=== PATIENT | female | born 1980 | race African-American/Black ===

== ENCOUNTER 2017-06-04 07:34 | Inpatient (IN) | payer OTHER ==
[~2017-06-04] VITALS: Ht 165.1 cm; Wt 114.4 kg
[2017-06-04] VITALS (10 sets, daily range): BP systolic 131–140; BP diastolic 80–91; PULSE 97–110; RESP 20–24; TEMP 98–98.9; O2SAT 95–99
[~2017-06-04 07:34] MED LIST: DICL75TA PO; PERC5TAB12 PO; PRED20 PO; ROBA750T PO
[2017-06-04] MEDS ORDERED: SODIUM CHLORIDE 0.9% FLUSH 10 ML FLUSH IV FLUSH PRN (12:45)
[2017-06-04] MEDS ORDERED: NITROGLYCERIN 0.4 MG SL 25 TABS/BTL SL PRN (12:45)
[2017-06-04] MEDS ORDERED: HEPARIN SODIUM - SQ 10,000 UNITS/ML VIAL SQ SCH (12:45)
[2017-06-04] MEDS: CARVEDILOL 3.125 MG TAB PO SCH ×2 (12:45→19:57)
--- NOTE | 2017-06-04 12:56 | HHI.HP ---
[facility] No Primary Care Physician Admission Diagnosis Diagnoses: Chief Complaint: Shortness of breath and shoulder discomfort Travel History International Travel<30 Days: No Contact w/Intl Traveler <30 Da: No Traveled to Known Affected Are: No History of Present Illness This patient is a 37-year-old female with a history of hypertension which is untreated. She went to the emergency room complaining of left-sided shoulder vague discomfort rated 3 out of 10 and with elevated blood pressures at home. Patient says her blood pressure at home was 179/130. She has had high blood pressures before but never this high. She has a diagnosis of hypertension but is not on any medications. She also complained of nonradiating left-sided shoulder pain and associated shortness of breath with dyspnea on exertion. She had been dizzy and short of breath for the last month. 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 She has had no anginal-type complaints of pain or chest tightness, however over the last month to today The discomfort has become worse. Patient also has menorrhagia although she is not currently on her menstrual cycle. She went to the emergency room and melatonin was found to have elevated cardiac enzymes, and abnormal CT chest as well as anemia. Patient was transferred to this facility for further evaluation and treatment. At this time the patient is pain free Review of Systems Constitutional: COMPLAINS OF: Fatigue, DENIES: Diaphoretic episodes, Fever, Weight gain, Weight loss, Chills, Dizziness, Change in appetite, Night Sweats Endocrine: DENIES: Abnorml menstrual pattern, Heat/cold intolerance, Polydipsia , Polyuria, Polyphagia Eyes: DENIES: Blurred vision, Diplopia, Eye inflammation, Eye pain, Vision loss , Photosensitivity, Double Vision Ears, nose, mouth, throat: DENIES: Tinnitus, Hearing loss, Vertigo, Nasal discharge, Oral lesions, Throat pain, Hoarseness, Ear Pain, Running Nose, Epistaxis, Sinus Pain, Toothache, Odynophagia Respiratory: COMPLAINS OF: Shortness of breath, DENIES: Apneas, Cough, Snoring , Wheezing, Hemoptysis, Sputum production Cardiovascular: COMPLAINS OF: Chest pain, Palpitations, Dyspnea on Exertion, Lower Extremity Edema, DENIES: Syncope, PND, Orthopnea, Claudication Gastrointestinal: DENIES: Abdominal pain, Black stools, Bloody stools, Constipation, Diarrhea, Nausea, Vomiting, Difficulty Swallowing, Anorexia Genitourinary: DENIES: Abnormal vaginal bleeding, Dysmenorrhea, Dyspareunia, Sexual dysfunction, Urinary frequency, Urinary incontinence, Urgency, Hematuria , Dysuria, Nocturia, Vaginal discharge Musculoskeletal: DENIES: Joint pain, Muscle aches, Stiffness, Joint Swelling, Back pain, Neck pain Integumentary: DENIES: Abnormal pigmentation, Pruritus, Rash, Nail changes, Breast masses, Breast skin changes, Nipple discharge Hematologic/lymphatic: DENIES: Bruising, Lymphadenopathy Immunologic/allergic: DENIES: Eczema, Urticaria Neurologic: DENIES: Abnormal gait, Headache, Localized weakness, Paresthesias, Seizures, Speech Problems, Tremor, Poor Balance Psychiatric: DENIES: Anxiety, Confusion, Mood changes, Depression, Hallucinations, Agitation, Suicidal Ideation, Homicidal Ideation, Delusions Except as stated in HPI: all other systems reviewed are Neg Past Family Social History Past Medical History Diverticular disease recently diagnosed Menorrhagia Past Surgical History Denies Reported Medications Denies Allergies: Coded Allergies: No Known Allergies (Unverified , 06/04/17) Active Ordered Medications Reviewed in the EMR Family History Mother has diabetes and hypertension, father had pneumonia and from complications of that Social History Smokes one cigarette a day, alcohol "on Fridays " 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 SKIN: No rashes, ecchymoses or lesions. Cool and dry. HEAD: Atraumatic. Normocephalic. No temporal or scalp tenderness. EYES: Pupils equal round and reactive. Extraocular motions intact. No scleral icterus. No injection or drainage. ENT: Nose without bleeding, purulent drainage or septal hematoma. Throat without erythema, tonsillar hypertrophy or exudate. Uvula midline. Airway patent. NECK: Trachea midline. No JVD or lymphadenopathy. Supple, nontender, no meningeal signs. CARDIOVASCULAR: Regular rate and rhythm without murmurs, gallops, or rubs. RESPIRATORY: Clear to auscultation. Breath sounds equal bilaterally. No wheezes , rales, or rhonchi. GASTROINTESTINAL: Abdomen soft, non-tender, nondistended. No hepato-splenomegaly , or palpable masses. No guarding. MUSCULOSKELETAL: Extremities without clubbing, cyanosis, or edema. No joint tenderness, effusion, or edema noted. No calf tenderness. Negative Homans sign bilaterally. NEUROLOGICAL: Awake and alert. Cranial nerves II through XII intact. Motor and sensory grossly within normal limits. Five out of 5 muscle strength in all muscle groups. Normal speech. Imaging CT done in [place] increased cardiac silhouette on my review, probably some basilar congestion No evidence of mass or pneumonia Caprini VTE Risk Assessment Caprini VTE Risk Assessment: Mod/High Risk (score >= 2) Caprini Risk Assessment Model Point Value = 1 Point Value = 2 Point Value = 3 Point Value = 5 Age 41-60 Minor surgery BMI > 25 kg/m2 Swollen legs Varicose veins or History of unexplained or recurrent spontaneous Oral contraceptives or hormone replacement Sepsis (< 1 month) Serious lung disease, including pneumonia (< 1 month) Abnormal pulmonary function Acute myocardial infarction Congestive heart failure (< 1 month) History of inflammatory bowel disease Medical patient at bed rest Age 61-74 Arthroscopic surgery Major open surgery (> 45 min) Laparoscopic surgery (> 45 min) Malignancy Confined to bed (> 72 hours) Immobilizing plaster cast Central venous access Age >= 75 History of VTE Family history of VTE Factor V Leiden Prothrombin [id number] Lupus anticoagulant Anticardiolipin antibodies Elevated serum homocysteine Heparin-induced thrombocytopenia Other congenital or acquired thrombophilia Stroke (< 1 month) Elective arthroplasty Hip, pelvis, or leg fracture Acute spinal cord injury (< 1 month) Prophylaxis Regimen Total Risk Factor Score Risk Level Prophylaxis Regimen 0-1 Low Early ambulation 2 Moderate Order ONE of the following: *Sequential Compression Device (SCD) *Heparin 5000 units SQ BID 3-4 Higher Order ONE of the following medications: *Heparin 5000 units SQ TID *Enoxaparin/Lovenox 40 mg SQ daily (WT < 150 kg, CrCl > 30 mL/min) *Enoxaparin/Lovenox 30 mg SQ daily (WT < 150 kg, CrCl > 10-29 mL/min) *Enoxaparin/Lovenox 30 mg SQ BID (WT < 150 kg, CrCl > 30 mL/min) AND/OR *Sequential Compression Device (SCD) 5 or more Highest Order ONE of the following medications: *Heparin 5000 units SQ TID (Preferred with Epidurals) *Enoxaparin/Lovenox 40 mg SQ daily (WT < 150 kg, CrCl > 30 mL/min) *Enoxaparin/Lovenox 30 mg SQ daily (WT < 150 kg, CrCl > 10-29 mL/min) *Enoxaparin/Lovenox 30 mg SQ BID (WT < 150 kg, CrCl > 30 mL/min) AND *Sequential Compression Device (SCD) Assessment and Plan Problem List: (1) Anemia ICD Code: D64.9 - Anemia, unspecified Plan: Appears to be iron deficiency and microcytic Follow-up iron studies Patient has menorrhagia (2) Elevated brain natriuretic peptide (BNP) level ICD Code: R79.89 - Other specified abnormal findings of blood chemistry Plan: Echocardiogram pending to rule out congestive heart failure Patient with intermittent shortness of breath dyspnea on exertion and edema Thyroid studies normal (3) Elevated troponin ICD Code: R74.8 - Abnormal levels of other serum enzymes Plan: Etiology unclear, may be true cardiac versus related to congestive heart failure Cardiology consult pending like continue beta jacquelyn, heparin, aspirin, nitroglycerin as needed (4) Atypical chest pain ICD Code: R07.89 - Other chest pain Plan: Maybe anginal equivalent Continue cardiac workup (5) HTN (hypertension) ICD Code: I10 - Essential (primary) hypertension Plan: Add beta jacquelyn, continue to follow Follow-up echo Physician Certification 2 Midnight Certification Type: Admission for Inpatient Services Order for Inpatient Services The services are ordered in accordance with Medicare regulations or non- Medicare payer requirements, as applicable. In the case of services not specified as inpatient-only, they are appropriately provided as inpatient services in accordance with the 2-midnight benchmark. Estimated LOS (days): 3 3 days is the estimated time the patient will need to remain in the hospital, assuming treatment plan goals are met and no additional complications. Post-Hospital Plan: Tangela Carlos MD Jun 04, 2017 12:56
[2017-06-04] MEDS ORDERED: HEPARIN-D5W 25,000 U/250 ML 250 ML IV PRN (13:30)
[2017-06-04 15:27] LABS: HEMATOCRIT 27.2 % (35.0-46.0); MEAN CELL VOLUME 65.5 FL (80.0-100.0); MEAN CORPUSCULAR HEMOGLOBIN 19.7 PG (27.0-34.0); MEAN CORPUSCULAR HGB CONC 30.1 % (32.0-36.0); PLATELET COUNT 342 TH/MM3 (150-450); RED BLOOD COUNT 4.16 MIL/MM3 (4.00-5.30); RED CELL DISTRIBUTION WIDTH 19.7 % (11.6-17.2); REVIEW FLAG FINAL; WHITE BLOOD COUNT 13.8 TH/MM3 (4.0-11.0)
[2017-06-04 15:42] LABS: PROTHROMBIN TIME - PATIENT 11.2 SEC (9.8-11.6)
--- NOTE | 2017-06-04 16:24 | MB ---
cc: PRATEEK MONTALVO DATE OF CONSULTATION: 06/04/2017 INDICATION [id number] RI. HISTORY OF PRESENT ILLNESS This is a 37-year-old female with a history of hypertension. She came in because of left-sided shoulder discomfort. She states that it is nonexertional, radiates somewhat to the back, it is worse with deep inspiration. Her initial blood pressure upon arrival to the emergency department was high, systolic was about 180 mmHg. She denies any recent exertional type symptoms. No nausea or vomiting. CT of the chest was done which showed no pulmonary embolism. Initial troponin was abnormal. We were consulted for further recommendations. PAST MEDICAL HISTORY 1. Diverticular disease. 2. Menorrhagia. ALLERGIES NO KNOWN DRUG ALLERGIES. FAMILY HISTORY Denies any family history of early coronary disease, sudden cardiac . SOCIAL HISTORY Very rare tobacco use. Does report occasional alcohol use. REVIEW OF SYSTEMS A 12-point reviews was performed, negative unless otherwise noted in History of Present Illness. PHYSICAL EXAMINATION VITAL SIGNS: Temperature 95, pulse is 104, blood pressure 131/81 mmHg. GENERAL: Alert and oriented x3, in no acute distress. HEENT: Shows pupils reactive to light and accommodation. Extraocular movements are intact. NECK: No elevation of jugular venous distention. No thyromegaly or lymphadenopathy. No carotid bruits. LUNGS: Clear to auscultation bilaterally. CARDIOVASCULAR: Regular, rate and rhythm without murmurs, rubs or gallops. ABDOMEN: Nontender, nondistended. Good bowel sounds. No hepatosplenomegaly. EXTREMITIES: Show no clubbing, cyanosis or edema. Good peripheral pulses. NEUROLOGIC: Cranial nerves intact. Motor and sensory grossly intact. LABORATORY DATA Sodium 144, potassium 3.9, BUN 16, creatinine is 1.1, troponin-I 0.67, B-natriuretic peptide 539. INR is 1. WBC 13.4, hemoglobin 7.9, platelet count is 385. ASSESSMENT AND RECOMMENDATIONS [id number] RI. Her symptoms are rather atypical although could be anginal equivalent. She developed shoulder pain which is nonexertional. She had CT of the chest performed which showed no evidence of pulmonary embolism. Her initial troponin is abnormal. I do not see an EKG scanned into the chart records, I will order for that now. We will follow troponin trend. Given her age, lack of risk factors and somewhat atypical symptoms, I think it would be best to start with a stress test. This could be demand mediated given her anemia although I do not think so. If the stress test shows perfusion defect, then we will be forced to proceed with more invasive strategies such as cardiac catheterization. I will leave any further anemia workup to Dr. Sevilla, although would be hesitant to give her any antiplatelet therapy or anticoagulation in the setting of her anemia. MD DINORAH Gao/KATE /3:06 PM /4:09 PM
[2017-06-04 19:37] LABS: CREATINE KINASE 124 U/L (26-192)
[2017-06-04 19:49] LABS: CKMB 2.1 NG/ML (0.5-3.6)
[2017-06-04] MEDS: HEPARIN 25,000 UNITS-D5W 250 ML - PREMIX IV PRN (20:03)
[2017-06-04] MEDS: SODIUM CHLORIDE 0.9% FLUSH 10 ML FLUSH IV FLUSH SCH (20:03)
[2017-06-04 20:56] LABS: APTT (PATIENT) 49.9 SEC (24.3-30.1)
[2017-06-05] VITALS (9 sets, daily range): BP systolic 128–153; BP diastolic 71–90; PULSE 106–113; RESP 18–24; TEMP 98.4–99.8; O2SAT 95–98
[2017-06-05 05:42] LABS: APTT (PATIENT) 46.9 SEC (24.3-30.1)
[2017-06-05 05:48] LABS: TRANSFERRIN IRON PROFILE 246 MG/DL (200-360)
[2017-06-05] MEDS: cefTRIAXone INJ 1,000 MG in SODIUM CHLORIDE 0.9% INJ 100 ML IV SCH (06:02)
[2017-06-05] MEDS: SODIUM CHLORIDE 0.9% FLUSH 10 ML FLUSH IV FLUSH SCH ×2 (08:37→20:42)
[2017-06-05] MEDS: ASPIRIN EC 325 MG TABEC PO SCH (08:37)
[2017-06-05] MEDS: CARVEDILOL 3.125 MG TAB PO SCH ×2 (08:37→20:42)
--- NOTE | 2017-06-05 10:25 | HHI.PR ---
Subjective Remarks No chest pain complaints when seen this morning. She has a stress test pending for today. Slight downward trend in hemoglobin. Objective Vital Signs Date Time Temp Pulse Resp B/P (MAP) Pulse Ox O2 Delivery O2 Flow Rate FiO2 06/05/17 09:00 97 Room Air 06/05/17 08:00 98.8 109 18 134/85 (101) 97 06/05/17 04:00 98.5 110 22 143/87 (105) 95 06/05/17 04:00 Room Air 06/05/17 00:41 108 06/05/17 00:00 Room Air 06/05/17 00:00 99.8 106 24 140/71 (94) 95 06/04/17 22:14 98.9 104 24 140/91 (107) 95 06/04/17 19:15 98.0 105 20 137/85 (102) 96 06/04/17 19:00 105 06/04/17 18:00 97 06/04/17 17:00 98 06/04/17 16:00 110 06/04/17 15:00 99 06/04/17 15:00 98.7 103 20 139/90 (106) 99 06/04/17 14:00 107 06/04/17 13:00 103 06/04/17 12:00 98.5 104 22 131/80 (97) 98 06/04/17 12:00 109 06/04/17 12:00 98 Room Air I/O 06/04/17 06/04/17 06/04/17 06/05/17 06/05/17 06/05/17 07:00 15:00 23:00 07:00 15:00 23:00 Intake Total 240 ml Output Total 200 ml Balance 40 ml Intake Oral 240 ml Output Urine Total 200 ml # Bowel Movements 0 Result Diagram: 06/04/17 1414 Objective Remarks GENERAL: NAD, A&Ox3 HEAD: Normocephalic. NECK: Supple, trachea midline. No lymphadenopathy. EYES: No scleral icterus. No injection or drainage. CARDIOVASCULAR: Regular rate and rhythm without murmurs, gallops, or rubs. RESPIRATORY: Breath sounds equal bilaterally. No accessory muscle use. GASTROINTESTINAL: Abdomen soft, non-tender, nondistended. MUSCULOSKELETAL: No cyanosis, or edema. SKIN: Warm and dry. NEURO: No focal neurological deficitis. A/P Problem List: (1) Elevated brain natriuretic peptide (BNP) level ICD Code: R79.89 - Other specified abnormal findings of blood chemistry (2) Elevated troponin ICD Code: R74.8 - Abnormal levels of other serum enzymes (3) Atypical chest pain ICD Code: R07.89 - Other chest pain (4) Anemia ICD Code: D64.9 - Anemia, unspecified Assessment and Plan Assessment and plan 37-year-old female admitted secondary to chest pain, elevated troponin, and anemia. Chest pain Elevated troponins Evaluate for ACS Follow cardiac enzymes Aspirin daily When necessary oxygen When necessary morphine for pain. When necessary nitroglycerin Follow on telemetry Cardiology consulted Stress test planned for today Continue heparin drip Acute blood loss anemia Stool studies pending Menorrhagia is present may be contributory Further workup may be indicated based on preliminary studies, wait for studies Stop heparin drip if ACS workup and stress test are negative BNP elevation Echocardiogram pending Hypertension Continue beta jacquelyn Echocardiogram pending Follow blood pressures DVT prophylaxis Patient is on a heparin drip for now Julio Wang MD Jun 05, 2017 10:24
--- NOTE | 2017-06-05 11:22 | PD.CARD.PN ---
Subjective Subjective Remarks no CP doing well Objective Medications Current Medications Medications (Trade) Dose Ordered Sig/Kurt Route Start Time Stop Time Status Last Admin (NS Flush) 2 ml BID IV FLUSH 06/04/17 21:00 (NS Flush) 2 ml UNSCH PRN IV FLUSH 06/04/17 12:45 (Ecotrin Ec) 325 mg DAILY PO 06/05/17 09:00 06/05/17 08:37 (Nitrostat Sl) 0.4 mg Q5M PRN SL 06/04/17 12:45 (Coreg) 3.125 mg BID PO 06/04/17 12:45 06/05/17 08:37 (Tylenol) 650 mg Q4H PRN PO 06/04/17 13:00 Heparin Sodium/ Dextrose 250 ml @ 10 mls/hr TITRATE PRN IV 06/04/17 14:30 06/04/17 20:03 Ceftriaxone Sodium 1000 mg/ Sodium Chloride 100 ml @ 200 mls/hr Q24H IV 06/05/17 07:00 06/05/17 06:02 Vital Signs / I&O Vital Signs Date Time Temp Pulse Resp B/P (MAP) Pulse Ox O2 Delivery O2 Flow Rate FiO2 06/05/17 10:00 107 06/05/17 09:00 97 Room Air 06/05/17 08:00 98.8 109 18 134/85 (101) 97 06/05/17 04:00 98.5 110 22 143/87 (105) 95 06/05/17 04:00 Room Air 06/05/17 00:41 108 06/05/17 00:00 Room Air 06/05/17 00:00 99.8 106 24 140/71 (94) 95 06/04/17 22:14 98.9 104 24 140/91 (107) 95 06/04/17 19:15 98.0 105 20 137/85 (102) 96 06/04/17 19:00 105 06/04/17 18:00 97 06/04/17 17:00 98 06/04/17 16:00 110 06/04/17 15:00 99 06/04/17 15:00 98.7 103 20 139/90 (106) 99 06/04/17 14:00 107 06/04/17 13:00 103 06/04/17 12:00 98.5 104 22 131/80 (97) 98 06/04/17 12:00 109 06/04/17 12:00 98 Room Air I/O 06/04/17 06/04/17 06/04/17 06/05/17 06/05/17 06/05/17 07:00 15:00 23:00 07:00 15:00 23:00 Intake Total 240 ml Output Total 200 ml Balance 40 ml Intake Oral 240 ml Output Urine Total 200 ml # Bowel Movements 0 Physical Exam NECK: Supple, trachea midline. No JVD or lymphadenopathy. CARDIOVASCULAR: Regular rate and rhythm without murmurs, gallops, or rubs. RESPIRATORY: Breath sounds equal bilaterally. No accessory muscle use. GASTROINTESTINAL: Abdomen soft, non-tender, nondistended. MUSCULOSKELETAL: No cyanosis, or edema. BACK: Nontender without obvious deformity. No CVA tenderness. Laboratory Laboratory Tests Test 06/04/17 14:14 06/04/17 18:16 06/04/17 20:35 06/05/17 04:21 White Blood Count 13.8 TH/MM3 Red Blood Count 4.16 MIL/MM3 Hemoglobin 8.2 GM/DL Hematocrit 27.2 % Mean Corpuscular Volume 65.5 FL Mean Corpuscular Hemoglobin 19.7 PG Mean Corpuscular Hemoglobin Concent 30.1 % Red Cell Distribution Width 19.7 % Platelet Count 342 TH/MM3 Mean Platelet Volume 8.5 FL Prothrombin Time 11.2 SEC Prothromb Time International Ratio 1.0 RATIO Activated Partial Thromboplast Time 49.0 SEC 49.9 SEC 46.9 SEC Total Creatine Kinase 124 U/L Creatine Kinase MB 2.1 NG/ML Troponin I 0.54 NG/ML Iron Level 13 MCG/DL Total Iron Binding Capacity 344 MCG/DL Percent Iron Saturation 3.8 % Assessment and Plan Assessment and Plan NSTEMI - atypical symptoms. nonspecific EKG changes. plan for lexiscan today if negative, medical mgt. 2d echo pending, but if EF normal on SPECT and SPECT negative, we can get echo as outpatient. If SPECT abnormal, then plan for LHC tomorrow. JAMESO Karlos Boone MD Jun 05, 2017 11:22
[2017-06-05] MEDS: HEPARIN 25,000 UNITS-D5W 250 ML - PREMIX IV PRN (11:59)
--- NOTE | 2017-06-05 13:10 | EKG ---
Date Performed: 06/04/2017 Time Performed: 17:10:16 PTAGE: 37 years EKG: Sinus tachycardia Normal ECG except for rate PREVIOUS TRACING : 06/04/2017 08.36 Compared to previous tracing, the T-wave changes have improved. DOCTOR: Edgar Lawler Interpretating Date/Time 06/05/2017 13:08:09
[2017-06-05] MEDS ORDERED: REGADENOSON INJ 0.4 MG/5 ML SYR ONE (14:03)
--- NOTE | 2017-06-05 15:47 | RADRPT ---
EXAM DATE/TIME: 06/05/2017 13:36 [place] COMPARISON: No previous studies available for comparison. INDICATIONS : Left chest pain and shoulder pain for one day. Angina. DOSE: 26.4 mCi Tc99m Myoview at stress. 11.0 mCi Tc99m Myoview at rest. 0.4 mg Lexiscan STRESS SYMPTOMS: None noted. EJECTION FRACTION: 18% MEDICAL HISTORY : Hypertension. SURGICAL HISTORY : None. ENCOUNTER: Initial ACUITY: 1 day PAIN SCALE: 5/10 LOCATION: Left chest TECHNIQUE: The patient underwent pharmacologic stress with infusion of prescribed dose. Continuous ECG tracing was monitored during stress. Gated SPECT imaging was performed after stress and conventional SPECT i maging was performed at rest. The examination was performed on a SPECT/CT scanner, both attenuation and non-corrected datasets were reviewed. FINDINGS: DISTRIBUTION: The maximum perfused segment at stress is equally distributed between the inferolateral and inferosep [place]. Image sets were normalized to the inferolateral location. PERFUSION STUDY: The pattern of perfusion at stress shows fixed absent perfusion to the apex characteristic of an old apical infarct. There appears to be a dilated cardiomyopathy. GATED STUDY: Severe, diffuse hypokinesis with paradoxical motion in the inferoseptal region. Markedly reduced ejec tion fraction of 18%. CONCLUSION: 1. 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 2. Severe, diffuse hypokinesis with paradoxical motion in the inferoseptal region. Markedly reduced e jection fraction of 18%. 3. No scintigraphic findings of ischemia. RISK CATEGORY: High (>3% Annual Mortality Rate) Pablo Tinoco MD on June 05, 2017 at 15:42 Board Certified Radiologist. This report was verified electronically.
[2017-06-06] VITALS (9 sets, daily range): BP systolic 128–161; BP diastolic 73–98; PULSE 100–113; RESP 18–20; TEMP 98.4–98.8; O2SAT 94–99
[2017-06-06] MEDS ORDERED: guaiFENesin SOLUTION 200 MG/10 ML CUP PO ONE (04:45)
[2017-06-06] MEDS: HEPARIN 25,000 UNITS-D5W 250 ML - PREMIX IV PRN (05:35)
[2017-06-06] MEDS: cefTRIAXone INJ 1,000 MG in SODIUM CHLORIDE 0.9% INJ 100 ML IV SCH (05:41)
--- NOTE | 2017-06-06 08:36 | PD.CARD.PN ---
Subjective Subjective Remarks admits to reoccurrence of L shoulder pain at rest last night, lasting approximately 45 mins. +orthopnea at times. no palpitations or edema. (Delfina Judge) Objective Medications Current Medications Medications (Trade) Dose Ordered Sig/Kurt Route Start Time Stop Time Status Last Admin (NS Flush) 2 ml BID IV FLUSH 06/04/17 21:00 06/05/17 20:42 (NS Flush) 2 ml UNSCH PRN IV FLUSH 06/04/17 12:45 (Ecotrin Ec) 325 mg DAILY PO 06/05/17 09:00 06/05/17 08:37 (Nitrostat Sl) 0.4 mg Q5M PRN SL 06/04/17 12:45 (Coreg) 3.125 mg BID PO 06/04/17 12:45 06/05/17 20:42 (Tylenol) 650 mg Q4H PRN PO 06/04/17 13:00 Heparin Sodium/ Dextrose 250 ml @ 10 mls/hr TITRATE PRN IV 06/04/17 14:30 06/06/17 05:35 Ceftriaxone Sodium 1000 mg/ Sodium Chloride 100 ml @ 200 mls/hr Q24H IV 06/05/17 07:00 06/06/17 05:41 Vital Signs / I&O Vital Signs Date Time Temp Pulse Resp B/P (MAP) Pulse Ox O2 Delivery O2 Flow Rate FiO2 06/06/17 04:00 98.8 105 20 139/81 (100) 96 06/06/17 00:00 98.8 108 20 161/94 (116) 99 06/05/17 20:00 Room Air 06/05/17 20:00 98.8 107 20 137/85 (102) 98 06/05/17 19:45 109 06/05/17 16:00 98.5 113 20 153/90 (111) 97 06/05/17 12:00 98.4 110 20 128/75 (92) 95 06/05/17 10:00 107 06/05/17 09:00 97 Room Air I/O 06/05/17 06/05/17 06/05/17 06/06/17 06/06/17 06/06/17 07:00 15:00 23:00 07:00 15:00 23:00 Intake Total 860 ml 445.1 ml Output Total 1000 ml 300 ml Balance -140 ml 145.1 ml Intake Oral 860 ml 100 ml IV Total 345.1 ml Output Urine Total 1000 ml 300 ml # Bowel Movements 1 0 Physical Exam GENERAL: SKIN: Warm and dry. HEAD: Atraumatic. Normocephalic. EYES: Pupils equal and round. NECK: Trachea midline. No JVD. CARDIOVASCULAR: tachycardic, normal rhythm, no murmurs. RESPIRATORY: No accessory muscle use. Clear to auscultation. Breath sounds equal bilaterally. MUSCULOSKELETAL: Extremities without clubbing, cyanosis, or edema. NEUROLOGICAL: Awake and alert. No obvious cranial nerve deficits. Normal speech. PSYCHIATRIC: Appropriate mood and affect; insight and judgment normal. Laboratory Laboratory Tests Test 06/04/17 14:14 06/04/17 18:16 06/05/17 04:21 White Blood Count 13.8 TH/MM3 Red Blood Count 4.16 MIL/MM3 Hemoglobin 8.2 GM/DL Hematocrit 27.2 % Mean Corpuscular Volume 65.5 FL Mean Corpuscular Hemoglobin 19.7 PG Mean Corpuscular Hemoglobin Concent 30.1 % Red Cell Distribution Width 19.7 % Platelet Count 342 TH/MM3 Mean Platelet Volume 8.5 FL Prothrombin Time 11.2 SEC Prothromb Time International Ratio 1.0 RATIO Total Creatine Kinase 124 U/L Creatine Kinase MB 2.1 NG/ML Troponin I 0.54 NG/ML Activated Partial Thromboplast Time 46.9 SEC Iron Level 13 MCG/DL Total Iron Binding Capacity 344 MCG/DL Percent Iron Saturation 3.8 % (Delfina Judge) Assessment and Plan Problem List: (1) Abnormal stress test ICD Codes: R94.39 - Abnormal result of other cardiovascular function study (2) Atypical chest pain ICD Codes: R07.89 - Other chest pain Assessment and Plan 37 yo AAF with history of HTN admitted for atypical chest pain and dyspnea on exertion. She admits to reoccurrence of chest pain overnight, lasting ~ 45mins, with associated orthopnea. NSTEMI- lexiscan abnormal, will proceed with c this afternoon, keep npo. echo pending. anemia- Hgb=8.2 (Delfina Judge) Assessment and Plan cardiomyopathy - ischemic vs nonischemic. + continued cp/shoulder pain symptoms Plan for C bedside echo - EF 25%. + mobile echodensity in left atrium adjacent to intra- atrial septum suggestive of myxoma vs thrombus. Needs FAMILIA prior to LHC. Need clearance for anticoagulation given iron deficiency anemia. ?bleeding from Menorrhagia. rule out GI, in addition? PERSONAL CARE HOME ADMINISTRATOR clearance? If PCI would be committed to Plavix. Need to make sure she is not going to bleed. (Karlos Manzanares MD) Delfina Judge Jun 06, 2017 08:36 Karlos Manzanares MD Jun 06, 2017 08:56
[2017-06-06 09:39] LABS: AUTOMATED NEUTROPHIL # 9.3 TH/MM3 (1.8-7.7); BASOPHIL # 0.1 TH/MM3 (0-0.2); BASOPHIL % 0.5 % (0.0-2.0); EOSINOPHIL # 0.2 TH/MM3 (0-0.4); EOSINOPHIL % 1.5 % (0.0-4.0); HEMATOCRIT 28.4 % (35.0-46.0); HEMO FLAGS DIFF FINAL; LYMPH % 19.5 % (9.0-44.0); LYMPHOCYTE # 2.6 TH/MM3 (1.0-4.8); MEAN CELL VOLUME 64.7 FL (80.0-100.0); MEAN CORPUSCULAR HEMOGLOBIN 18.8 PG (27.0-34.0); MONO % 9.2 % (0.0-8.0); NEUT % 69.3 % (16.0-70.0); PLATELET COUNT 383 TH/MM3 (150-450); RED BLOOD COUNT 4.39 MIL/MM3 (4.00-5.30); RED CELL DISTRIBUTION WIDTH 19.8 % (11.6-17.2); WHITE BLOOD COUNT 13.3 TH/MM3 (4.0-11.0)
[2017-06-06 09:43] LABS: APTT (PATIENT) 51.4 SEC (24.3-30.1)
[2017-06-06 09:53] LABS: MEAN CORPUSCULAR HGB CONC 29.1 % (32.0-36.0)
[2017-06-06] MEDS: CARVEDILOL 3.125 MG TAB PO SCH ×2 (10:05→21:28)
[2017-06-06] MEDS: ASPIRIN EC 325 MG TABEC PO SCH (10:05)
[2017-06-06] MEDS: FERROUS SULFATE 325 MG (65 MG ELEMENTAL IRON) TAB PO SCH ×2 (10:05→21:07)
[2017-06-06] MEDS: SODIUM CHLORIDE 0.9% FLUSH 10 ML FLUSH IV FLUSH SCH ×2 (10:06→21:06)
[2017-06-06 10:21] LABS: CHLORIDE 112 MEQ/L (98-107); POTASSIUM 3.9 MEQ/L (3.5-5.1); SODIUM (NA) 141 MEQ/L (136-145)
--- NOTE | 2017-06-06 11:10 | ECHRPT ---
Indication: Hypertensive Heart Disease CONCLUSIONS Mildly dilated left ventricle. Wall thickness is measured at the upper limits of normal. The left ventricular systolic function is severely reduced with an estimated ejection fraction less than 20%. There is diffuse global hypokinesis with distinct regional wall motion abnormalities. The right ventricular systoilc function is moderately decreased. The left atrial size is moderately dilated. An apparent mobile echodensity is observed in the left atrial cavity adjacent to intra-atrial septum . May be tissue mass, ie myxoma vs thrombosis. The right atrial size is moderately dilated. Moderate eccentric mitral valve regurgitation. There is mild tricuspid valve regurgitation. There is estimated mild pulmonary hypertension present ( 43 mmHg). The pulmonary valve is not well visualized. There is a trivial pericardial effusion present. BP: / HR: Rhythm: MEASUREMENTS (Male / Female) Normal Values Technical Quality: 2D ECHO LV Diastolic Diameter PLAX 6.2 cm 4.2 - 5.9 / 3.9 - 5.3 cm LV Systolic Diameter PLAX 5.7 cm IVS Diastolic Thickness 1.2 cm 0.6 - 1.0 / 0.6 - 0.9 cm LVPW Diastolic Thickness 1.1 cm 0.6 - 1.0 / 0.6 - 0.9 cm LV Relative Wall Thickness 0.4 RV Internal Dim ED PLAX 2.1 cm LA Systolic Diameter LX 5.0 cm 3.0 - 4.0 / 2.7 - 3.8 cm M-MODE Aortic Root Diameter MM 3.2 cm AV Cusp Separation MM 2.3 cm DOPPLER MR Peak Velocity 667.0 cm/s MR Peak Gradient 178.0 mmHg Mitral E Point Velocity 117.0 cm/s TR Peak Velocity 329.0 cm/s TR Peak Gradient 43.3 mmHg FINDINGS LEFT VENTRICLE Mildly dilated left ventricle. Wall thickness is measured at the upper limits of normal. The left ventricular systolic function is severely reduced with an estimated ejection fraction less than 20%. There is diffuse global hypokinesis with distinct regional wall motion abnormalities. RIGHT VENTRICLE The right ventricular systoilc function is moderately decreased. LEFT ATRIUM The left atrial size is moderately dilated. An apparent mobile echodensity is observed in the left atrial cavity adjacent to intra-atrial septum . May be tissue mass, ie myxoma vs thrombosis. RIGHT ATRIUM The right atrial size is moderately dilated. ATRIAL SEPTUM Normal atrial septal thickness without atrial level shunting by limited color doppler interrogation. AORTA The aortic root and proximal ascending aorta are normal in size on limited imaging. MITRAL VALVE Moderate eccentric mitral valve regurgitation. AORTIC VALVE Trileaflet aortic valve. No aortic valve stenosis or regurgitation. TRICUSPID VALVE There is mild tricuspid valve regurgitation. There is estimated mild pulmonary hypertension present ( 43 mmHg). PULMONARY VALVE The pulmonary valve is not well visualized. VESSELS The inferior vena cava is normal in size. PERICARDIUM There is a trivial pericardial effusion present. Karlos Manzanares MD, FACC (Electronically Signed) Final Date:06 June 2017 11:09
[2017-06-06 11:27] LABS: BETA HCG QUANT LESS THAN 1 MIU/ML (0-5)
[2017-06-06 11:28] LABS: ALKALINE PHOSPHATASE 59 U/L (45-117); ALT (GPT) 33 U/L (10-53); AST (GOT) 16 U/L (15-37); BLOOD UREA NITROGEN 15 MG/DL (7-18); GLOMERULAR FILTRATION RATE 69 ML/MIN (>89)
[2017-06-06 11:29] LABS: TOTAL BILIRUBIN ADULT 0.2 MG/DL (0.2-1.0)
[2017-06-06 11:35] LABS: ANION GAP 10 MEQ/L (5-15); BICARBONATE 19.3 MEQ/L (21.0-32.0)
[2017-06-06] MEDS ORDERED: RESP: ALBUTEROL 2.5 MG/3 ML NEB (SCH) ONE (13:00)
--- NOTE | 2017-06-06 14:09 | HHI.PR ---
Subjective Remarks Evidence of cardiomyopathy on stress test and on echocardiogram. Patient will have cardiac catheterization. No complaints of chest pain or shortness of breath from patient. Objective Vital Signs Date Time Temp Pulse Resp B/P (MAP) Pulse Ox O2 Delivery O2 Flow Rate FiO2 06/06/17 13:44 100 20 128/88 (101) 95 06/06/17 11:30 103 06/06/17 08:30 Room Air 06/06/17 08:00 113 06/06/17 08:00 98.4 107 20 147/98 (114) 98 06/06/17 04:00 98.8 105 20 139/81 (100) 96 06/06/17 00:00 98.8 108 20 161/94 (116) 99 06/05/17 20:00 Room Air 06/05/17 20:00 98.8 107 20 137/85 (102) 98 06/05/17 19:45 109 06/05/17 16:00 98.5 113 20 153/90 (111) 97 I/O 06/05/17 06/05/17 06/05/17 06/06/17 06/06/17 06/06/17 07:00 15:00 23:00 07:00 15:00 23:00 Intake Total 860 ml 445.1 ml Output Total 1000 ml 300 ml Balance -140 ml 145.1 ml Intake Oral 860 ml 100 ml IV Total 345.1 ml Output Urine Total 1000 ml 300 ml # Bowel Movements 1 0 Result Diagram: 06/06/17 0835 06/06/17 0835 Objective Remarks GENERAL: NAD, A&Ox3 HEAD: Normocephalic. NECK: Supple, trachea midline. No lymphadenopathy. EYES: No scleral icterus. No injection or drainage. CARDIOVASCULAR: Regular rate and rhythm without murmurs, gallops, or rubs. RESPIRATORY: Breath sounds equal bilaterally. No accessory muscle use. GASTROINTESTINAL: Abdomen soft, non-tender, nondistended. MUSCULOSKELETAL: No cyanosis, or edema. SKIN: Warm and dry. NEURO: No focal neurological deficitis. A/P Problem List: (1) Elevated brain natriuretic peptide (BNP) level ICD Code: R79.89 - Other specified abnormal findings of blood chemistry (2) Elevated troponin ICD Code: R74.8 - Abnormal levels of other serum enzymes (3) Atypical chest pain ICD Code: R07.89 - Other chest pain (4) Anemia ICD Code: D64.9 - Anemia, unspecified Assessment and Plan Assessment and plan 37-year-old female admitted secondary to chest pain, elevated troponin, and anemia. Plan for heart catheterization. Chest pain Elevated troponins Evaluate for ACS Follow cardiac enzymes Aspirin daily When necessary oxygen When necessary morphine for pain. When necessary nitroglycerin Follow on telemetry Cardiology following Stress test planned for today Continue heparin drip Heart Cath Pending Acute blood loss anemia Menorrhagia Stool studies pending Menorrhagia is present may be contributory Further workup may be indicated based on preliminary studies, wait for studies Stop heparin drip if ACS workup and stress test are negative Gynecology consulted BNP elevation Echocardiogram pending Hypertension Continue beta jacquelyn Echocardiogram pending Follow blood pressures DVT prophylaxis Patient is on a heparin drip for now Julio Wang MD Jun 06, 2017 14:09
[2017-06-06] MEDS ORDERED: MIDAZOLAM HCL 2 MG/2 ML VIAL ONE (14:23)
[2017-06-06] MEDS ORDERED: HEPARIN SODIUM - IV 10,000 UNITS/10 ML VIAL ONE (14:23)
[2017-06-06] MEDS ORDERED: HEPARIN-NS/PF INJ 1,000 ML ONE (14:23)
[2017-06-06] MEDS ORDERED: NITROGLYCERIN INJ 5 ML ONE (14:23)
--- NOTE | 2017-06-06 15:11 | ECHRPT ---
Indication: CARDIOMYOPATHY CONCLUSIONS Moderately dilated left ventricle. The left ventricular systolic function is severely reduced with an estimated ejection fraction in th e range of 20-25%. There is global left ventricular dysfunction. The left atrial size is mildly dilated. Normal atrial septal thickness without atrial level shunting by limited color doppler interrogation. No atrial level shunt is demonstrated by color flow Doppler or agitated saline imaging. There is a pedunculated mobile echodensity originating on the left atrial side of the intra-atrial s eptum. Mild thickening of the mitral valve leaflets. Lyop-nz-urorcwpu mitral valve regurgitation. Structurally normal tricuspid valve. There is moderate tricuspid regurgitation. BP: / HR: Rhythm: MEASUREMENTS (Male / Female) Normal Values Technical Quality: DOPPLER TR Peak Velocity 296.0 cm/s TR Peak Gradient 35.0 mmHg Medications Complications There were no complications prior to, during or in recovery from the transesophag eal echocardiogram.. Proc. Components FINDINGS LEFT VENTRICLE Moderately dilated left ventricle. The left ventricular systolic function is severely reduced with an estimated ejection fraction in th e range of 20-25%. There is global left ventricular dysfunction. RIGHT VENTRICLE Normal right ventricular size and systolic function. LEFT ATRIUM The left atrial size is mildly dilated. RIGHT ATRIUM The right atrial size is normal. ATRIAL APPENDAGES Normal left atrial appendage size with no evidence of thrombus formation. ATRIAL SEPTUM Normal atrial septal thickness without atrial level shunting by limited color doppler interrogation. No atrial level shunt is demonstrated by color flow Doppler or agitated saline imaging. There is a pedunculated mobile echodensity originating on the left atrial side of the intra-atrial s eptum. AORTA The aortic root and proximal ascending aorta are normal in size on limited imaging. MITRAL VALVE Mild thickening of the mitral valve leaflets. Eosr-qw-lhwxsiky mitral valve regurgitation. No mitral valve stenosis. AORTIC VALVE Trileaflet aortic valve. No aortic valve stenosis or regurgitation. TRICUSPID VALVE Structurally normal tricuspid valve. There is moderate tricuspid regurgitation. VESSELS The inferior vena cava is normal in size. PULMONARY VALVE The pulmonary valve is not well visualized. PERICADIUM No pericardial effusion. Karlos Manzanares MD, FACC (Electronically Signed) Final Date:06 June 2017 15:10
--- NOTE | 2017-06-06 15:12 | CATHPROC ---
[facility] HIS Report Study Information Study Number Admission Scheduled Start Study Start [id number] Jun 04 2017 1:11PM 06/06/2017 Jun 06 2017 1:46PM [place] [facility] Cardiac Catheterization Admit Source Facility Department Emergency department [facility] - Fundraising Consultant Physician and Clinical Staff Initial Karlos [employer] Nurse Soraya Barbosa BSN Other cathlab, cathlab Recorder Raad Fuller RCIS(BS) Scrub Savi Antonio,RT(R) (BS) Procedures Performed Procedure Location (Site) Vessel Name Coronary Angiograms LCA Left Coronary Coronary Angiograms RCA Right Coronary L Heart Cath Equipment Time Head Grease Maker Description Size Mfg Part Number Used/Scraped TRANSDUCER, TRUWAVE [id number] 13:46 [employer] STEWARD * Used W/STOCKCOCK *[id number] 534-518T *[id number] [id number] *[id number] 13:46 [employer] INDUSTRIES PACK, CCL CUSTOM * Used *[id number] 13:46 [employer] SUPPORT, ARTERIAL ADULT 86470 *[id number] Used [id number] 13:46 [employer] PACER PEN, SKIN DUAL W/ RULER * Used *[id number] BAND, RADIAL COMPRESSION TR [id number] 14:50 [employer] 24CM Used SHORT 24 *[id number] SHEATH, FR6 RADIAL PRELUDE 13:46 [employer] FR 6 [id number] Used EASE 11CM [id number] 13:46 [employer] WIRE, EXCHANGE 260CM 3MMJ 260CM Used *[id number] 13:46 [employer] OMNIPAQUE, 350 MG, 150ML 150ML [id number] Used [id number] 13:46 [employer] BLANKET,WARM AIR CCL * Used *[id number] History: Current Medications Medication Dosage/Unit Route Frequency Last Date/Time Taken Beta Nury ASA History: Allergies Allergy Reaction No Known Allergies History: Risk Factors Family History of Hypertension Dyslipidemia Previous SD Previous Heart Failure Premature CAD Yes No No No No Prior Valve Prior PCI Prior CABG Surgery No No No Cerebrovascular Peripheral Artery Chronic Lung On Dialysis Diabetes Disease Disease Disease No No No No No History: Symptoms/Diagnosis Selection Items Chest pain History: Stress Tests Stress or Imaging Studies Performed Yes Standard Exercise Stress Test No Stress Echo No Stress Test SPECT Stress Test SPECT Result Stress Test SPECT Ischemia Risk/Extent Yes Positive Intermediate Stress Test CMR No Cardiac CTA Coronary Calcium Score No No History: Other Disease Selection Items HTN History: Other Current Smoker Method Packs a Day Years Used Pack Years No Cigarettes 1 10 10 Labs Hgb (g/dl) Hct (%) WBC (l/cumm) Platelets (thousands) 11.60-17.00 35.00-51.00 4.00-11.00 150.00-450.00 8.3 28.4 13.3 383 Glucose (mg/dl) BUN (mg/dl) Creatinine (mg/dl) BUN:Creatinine (1:x) 74.00-106.00 7.00-18.00 0.50-1.30 10.00-20.00 122 15 1.0 15 Na (meq/l) K (meq/l) 136.00-145.00 3.50-5.10 141 3.9 INR (PTT:PT) 0.90-1.10 1 Troponin I (ng/ml) CPK (u/l) CPK-MB (ng/ML) 0.02-0.05 26.00-308.00 0.50-3.60 0.4 124 Not Drawn Medication Medication Total Dose (Bolus/Oral) Medication Total Dosage/Unit 1% XYLOCAINE 3 mL FENTANYL 50 mcg HEPARIN 3000 units NTG (IC) 200 mcg VERSED 1 mg Medications (Bolus/Oral) Medication Time Given Dosage/Unit Administered By Reason VERSED 06/06/2017 2:38:27 PM 1 mg Soraya Barbosa 1 mg VERSED given in lab by Soraya Barbosa BSN in Right Forearm via Peripheral IV. Ordered by Karlos Morris. FENTANYL 06/06/2017 2:39:02 PM 50 mcg Soraya Barbosa 50 mcg FENTANYL given in lab by Soraya Barbosa BSN in Right Forearm via Peripheral IV. Ordered by Karlos Manzanares. 1% XYLOCAINE 06/06/2017 2:40:36 PM 3 mL Karlos Manzanares 3 mL 1% XYLOCAINE given in lab by Karlos Manzanares in Right Radial via Subcutaneous. NTG (IC) 06/06/2017 2:43:03 PM 200 mcg Karlos Manzanares 200 mcg NTG (IC) given in lab by Karlos Manzanares in Right Radial via Intra-arterial. HEPARIN 06/06/2017 2:45:23 PM 3000 units Soraya Barbosa 3000 units HEPARIN given in lab by Soraya Barbosa BSN in Right Forearm via Peripheral IV. Order ed by Karlos Manzanares. Medication (Drip) Medication Time Given Dosage/Unit Concentration/Unit Diluent (ml) Solution IV Solutions 06/06/2017 2:08:16 PM 0 mL (IV) 500 NaCl .9 Patient arrived on IV Solutions given by [email or web address] in Right Forearm via Peripheral IV. Pump/Dr ip Flow = 20 ml/hr using NaCl .9. Ordered by Karlos Manzanares. Initial Case Assessment Cardiovascular HR Rhythm NIBP Chest Pain 100 stach 140/103 0 Edema Present Skin color Skin None Normal Warm Dry Circulatory - Right Pulses Dorsalis Pedis Femoral Radial 2 2 2 Scale (0,1,2,3,4,d) Scale (0,1,2,3,4,d) Neurological State Oriented to time-place- Alert Moves all extremities person Respiration - General Respiration Rate SpO2 (%) (B/min) 15 93 Final Case Assessment Cardiovascular HR Rhythm NIBP Chest Pain 102 stach 131/96 0 Edema Present Skin color Skin None Normal Warm Dry Circulatory - Right Pulses Dorsalis Pedis Femoral Radial 2 2 2 Scale (0,1,2,3,4,d) Scale (0,1,2,3,4,d) Neurological State Oriented to time-place- Alert Moves all extremities person Respiration - General Respiration Rate SpO2 (%) (B/min) 16 96 Chronological Log Time Study Chronological Log 14:08:06 Patient arrived via Bed. 14:08:06 Patient Name, D.O.B, / Armband Verified By R.N. 14:08:07 Consent signed by the physician and the patient and verified by the Fundraising Consultant staff. 14:08:08 Pre-op and post- op instructions given; patient acknowledges understanding of instructions. 14:08:08 Verbal Stimulation=2 Physical Stimulation=2 Airway=2 Respiration=2 TOTAL=8. (0=absent, 1=li mited, 2=present) 14:08:09 Presedation assessment performed by Fundraising Consultant RN. 14:08:10 Immediate Presedation assesment performed by physician. 14:08:11 Patient has been NPO for More than 6Hrs. 14:08:12 Skin Breakdown- none per patient 14:08:13 Patient Warmer Placed on the Table. 14:08:14 Joey Prominences Protected 14:08:16 A # 20 IV was noted in the Forearm (right). Grade = 0 Patient arrived on IV Solutions given by cathlab, cathlab in Right Forearm via Peripheral IV. P ump/Drip Flow = 20 ml/hr 14:08:16 using NaCl .9. Ordered by Karlos Manzanares. 14:08:17 History and physical on the chart or being dictated. Vitals capture started with the following parameters, Patient=Adult, Interval=5 min, Initial Pr rzrlpy=642 mmHg, 14:17:49 Deflation Rate=5 mmHg, Cuff placed on Left Arm Assessment: Initial Case, KC=526 BPM, Rhythm=stach, MEQT=417/103 mmhg, Chest Pain=0, Edema=None , Color=Normal, Skin = Warm, Dry 14:18:01 Right Pulses: Bulmaro Ped=2, Femoral=2, Radial=2 Neurological: State=Alert, Ox3, TIWARI Respiration: Resp=15 B/min, SpO2=93 % 14:19:05 MV=323 bpm, JVIP=457/103 mmhg, SpO2=96.0 %, Resp=15 B/min, Pain=0, Nimco=10, Uriostegui=2 14:23:33 SF=136 bpm, AAAO=084/95 mmhg, SpO2=95 %, Resp=13 B/min, Pain=0, Nimco=10, Uriostegui=2 14:28:34 DT=107 bpm, FPFP=174/89 mmhg, SpO2=96.0 %, Resp=15 B/min, Pain=0, Nimco=10, Uriostegui=2 14:28:58 Right Radial and groin(s) prepped with 2% chlorhexidine, and draped after a 3 min. waiting time. 14:33:33 IB=874 bpm, CWRW=747/94 mmhg, SpO2=97.0 %, Resp=16 B/min, Pain=0, Nimco=10, Uriostegui=2 14:34:03 MD arrived. 14:34:07 Contrast Scanned 14:34:08 Immediate Presedation assesment performed by physician. 14:36:04 Pressure channel 1 zero failed. 14:37:20 Pressure channel 1 zeroed. 14:37:57 Reference ECG taken 1 mg VERSED given in lab by Soraya Barbosa BSN in Right Forearm via Peripheral IV. Ordere d by Leighton, 14:38:27 Karlos. 14:38:36 OS=674 bpm, WFQO=347/97 mmhg, SpO2=95 %, Resp=16 B/min, Pain=0, Nimco=10, Uriostegui=2 50 mcg FENTANYL given in lab by Soraya Barbosa BSN in Right Forearm via Peripheral IV. Or dered by Leighton, 14:39:02 Karlos. Time Out. Correct patient, correct procedure, correct physician, power injector not loaded with contrast with surgical 14:39:51 team present. Time Out Concurred by MD and individual staff in procedure. 14:39:58 Verbal Stimulation=2 Physical Stimulation=2 Airway=2 Respiration=2 TOTAL=8. (0=absent, 1=li mited, 2=present) 14:40:10 Case Start 14:40:36 3 mL 1% XYLOCAINE given in lab by Karlos Manzanares in Right Radial via Subcutaneous. 14:42:44 Access site was Right Radial Artery. A SHEATH, FR6 RADIAL PRELUDE EASE 11CM FR 6 was advanced into the Radial (right) using the Perc utaneous 14:42:54 technique. 14:43:03 200 mcg NTG (IC) given in lab by Karlos Manzanares in Right Radial via Intra-arterial. 14:43:27 In the Radial (right) the SHEATH, FR6 RADIAL PRELUDE EASE 11CM FR [address] by Karlos Manzanares. 14:43:35 KG=789 bpm, FMWG=992/93 mmhg, SpO2=94.0 %, Resp=15 B/min, Pain=0, Nimco=10, Uriostegui=2 A JR 5.0 INFINITI CATHETER FR 5 was advanced over a wire. OMNIPAQUE, 350 MG, 150ML 150ML was us ed for :43:44 injections. 3000 units HEPARIN given in lab by Soraya Barbosa BSN in Right Forearm via Peripheral IV. Ordered by Leighton, 14:45:23 Karlos. Recorded Pressure: LV, WE=369, Condition=Condition 1 14:45:29 (Left Ventricle) LV 142/23/35 Recorded Pressure: LV, Ao, YG=829, Condition=Condition 1 14:45:34 (Left Ventricle) LV 142/23/34, (Aorta) Ao 143/112/127 Recorded Pressure: Ao, MV=264, Condition=Condition 1 14:45:58 (Aorta) Ao 140/114/127 14:46:08 The RCA was injected and visualized at various angles. OMNIPAQUE, 350 MG, 150ML 150ML used . After removing the current catheter a JL 3.5 INFINITI CATHETER FR 5 was advanced over a WIRE, E XCHANGE 260CM 14:46:44 3MMJ 260CM. 14:48:23 The LCA was injected and visualized at various angles. OMNIPAQUE, 350 MG, 150ML 150ML used . 14:48:36 HI=526 bpm, NNJW=562/96 mmhg, SpO2=95 %, Resp=15 B/min, Pain=0, Nimco=10, Uriostegui=2 14:49:35 Catheter was removed 14:49:36 Case End Assessment: Final Case, YI=243 BPM, Rhythm=stach, GOJF=274/96 mmhg, Chest Pain=0, Edema=None, Color=Normal, Skin = Warm, Dry 14:49:47 Right Pulses: Bulmaro Ped=2, Femoral=2, Radial=2 Neurological: State=Alert, Ox3, TIWARI Respiration: Resp=16 B/min, SpO2=96 % 14:50:04 Catheter(s) removed without difficulty Radial Compression Device Used. 13 mLs of air placed in BAND, RADIAL COMPRESSION TR SHORT 24 24 CM. Affected 14:50:07 hand 95 % O2 saturation. 14:50:17 Sterile dressing applied to site 14:50:18 No case complications noted. 14:50:19 Cine recording checked. 14:50:20 Bedside Report will be given. 14:50:23 Contrast Scanned 14:50:24 Verbal Stimulation=2 Physical Stimulation=2 Airway=2 Respiration=2 TOTAL=8. (0=absent, 1=li mited, 2=present) 14:50:32 A Left Heart Cath was performed. 14:53:38 OJ=005 bpm, YHVJ=338/85 mmhg, SpO2=94.0 %, Resp=16 B/min, Pain=0, Nimco=10, Uriostegui=2 14:58:39 HR=98 bpm, FRFP=116/93 mmhg, SpO2=93 %, Resp=26 B/min End Study - Contrast Media Used In Study Contrast Total Opened (mL) Total Used (mL) Total Wasted (mL) Omnipaque 35 35 0 End Study - Maximum Contrast Load Max Contrast Load (mL) 575.9 End Study - Radiation Exposure Fluoro Time (minutes) 1.2 End Study - Patient Disposition Complications Transferred To Interventional Outcome No Fundraising Consultant Holding No attempt made
[2017-06-06] MEDS ORDERED: hydrALAZINE HCL 20 MG/ML VIAL ONE (15:42)
[2017-06-06] MEDS ORDERED: IOHEXOL 350 MG/ML 50 ML BTL (for Cath Lab) OTHER ONE (15:44)
--- NOTE | 2017-06-06 19:14 | EKG ---
Date Performed: 06/06/2017 Time Performed: 10:18:22 PTAGE: 37 years EKG: Sinus tachycardia. Lateral T wave changes are nonspecific Borderline ECG PREVIOUS TRACING : 06/04/2017 17.10 Since previous tracing, no significant change noted DOCTOR: Peter Rivero Interpretating Date/Time 06/06/2017 19:12:09
--- NOTE | 2017-06-06 20:23 | PD.CONS ---
History & Physical H&P Patient is a 37-year-old black female A1[elective ab] who is in the hospital with hypertension and heart disease mild VA and reports she has periods plan to call [facility] her periods are heavy have been heavier: Adult life they are regular once a month she's not bleeding now that is has heavy periods that are painful with clots she's tried control pills past now with intrinsic heart disease cardiomyopathy and an VA she's not a good candidate for any hormonal therapy that is systemic, however she may be a good candidate for an IUD Mirena IUD which can be placed the big side effect of that product is very little to no periods as well as control she certainly doesn't need to get with this type heart disease. Also she could be a candidate for a endometrial ablation which is more invasive and permanent treatment with her heart disease and I don't know of any medications that would be safe for her other than the IUD mentioned above. Patient has insurance should be able to get into one of the [facility] doctors here in town for potentially I Mirena placement. The patient is be provided a list of the [facility] doctors so that she can have the option to call them Richy Carney II, MD Jun 06, 2017 20:23
[2017-06-06] MEDS: ACETAMINOPHEN 325 MG TAB PO PRN (21:05)
--- NOTE | 2017-06-06 22:00 | RADRPT ---
EXAM DATE/TIME: 06/06/2017 20:38 [facility] COMPARISON: No previous studies available for comparison. INDICATIONS : Pelvic pain. MEDICAL HISTORY : Hypertension. Chest pain. Dyspnea. Back problems. SURGICAL HISTORY : ENCOUNTER: Initial ACUITY: 1 week PAIN SCORE: 3/10 LOCATION: Bilateral pelvis MEASUREMENTS: UTERUS: 11.2 x 8.7 x 7.0 cm ENDOMETRIAL STRIPE: 7 mm RIGHT OVARY: 4.2 x 2.1 x 1.8 cm cm LEFT OVARY: 2.7 x 1.7 x 2.6 cm FINDINGS: UTERUS: The uterus is enlarged and heterogeneous. There is a 3.9 x 3.7 x 3.4 cm heterogeneous mass in the iza rine body likely representing a leiomyoma. The endometrial echo complex is normal in size for a menst ruating female. Nabothian cysts are seen at the cervix. RIGHT OVARY: Ovary contains no mass or significant cystic lesion. LEFT OVARY: Ovary contains no mass or significant cystic lesion. MISCELLANEOUS: There is mild free fluid. CONCLUSION: Enlarged heterogeneous uterus likely related to leiomyomatous change. There is a 3.9 center focal mas s likely related to a leiomyoma. There is mild free fluid present. Fausto Perdue MD on June 06, 2017 at 21:56 Board Certified Radiologist. This report was verified electronically.
[2017-06-07] VITALS: BP 135/90; PULSE 107; RESP 18; TEMP 99; O2SAT 95
[2017-06-07] MEDS: ACETAMINOPHEN 325 MG TAB PO PRN (02:12)
[2017-06-07 04:00] VITALS: BP 152/96; PULSE 103; RESP 18; TEMP 97.9; O2SAT 97
[2017-06-07] MEDS: cefTRIAXone INJ 1,000 MG in SODIUM CHLORIDE 0.9% INJ 100 ML IV SCH (05:16)
[2017-06-07] MEDS ORDERED: SODIUM CHLOR 0.9% IV ONE (06:00)
[2017-06-07] MEDS ORDERED: IRON SUCROSE IV ONE (06:00)
[2017-06-07] MEDS ORDERED: IRON SUCROSE 100 MG/5 ML VIAL IV ONE (06:00)
--- NOTE | 2017-06-07 07:07 | MB ---
cc: MIRTHA CID M.D. DATE OF CONSULTATION 06/06/2017 REASON FOR CONSULTATION Consult requested for microcytic hypochromic anemia. 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 She came into the emergency room complaining of left-sided chest pain. The CBC on admission two days ago showed white count of 13.8, hemoglobin 8.2, MCV 65, platelet count is 342. Iron studies were ordered and the serum iron is low at 13, TIBC is high normal at 344 and iron saturation is low at 3.8. The patient has iron deficiency anemia and I have been asked to see her for further evaluation. REVIEW OF SYSTEMS The patient has been complaining of menorrhagia. She states that she passes clots at times which are very painful. She has not seen a patient accounts coordinator as yet. She states that her family doctor has given her control pills several years ago which had helped but she has been having heavy periods. She has been complaining of weakness, tiredness, fatigue. She is complaining of dyspnea on exertion. The rest of the review of systems is negative. PAST MEDICAL HISTORY Diverticulosis. Menorrhagia. PAST SURGICAL HISTORY None. ALLERGIES None. MEDICATIONS Prior to coming into the hospital, please see EMR. FAMILY HISTORY Noncontributory. SOCIAL HISTORY The patient does not does not smoke cigarettes. The patient drinks alcohol. She is a MOBILE PET GROOMER. PHYSICAL EXAMINATION GENERAL: This is a well-developed Afro-Guinean female in no apparent distress. VITAL SIGNS: Temperature 98.6, heart rate is 104, blood pressure 140/95, O2 saturation 94% on room air. HEENT: PERRLA. EOMI. Anicteric. No oral lesions noted. NECK: No lymphadenopathy noted. LUNGS: Clear. No wheezing, rhonchi or rales. HEART: Tachycardia with no murmur. ABDOMEN: Soft, nontender. No hepatosplenomegaly. EXTREMITIES: No pedal edema. NEUROLOGY: Awake, alert, oriented x3. SKIN: No significant lesions noted. ASSESSMENT 1. Microcytic hypochromic anemia due to iron deficiency. 2. Iron deficiency from menorrhagia. 3. Menorrhagia. PLAN I have discussed with the patient and her regarding the CBC results. She has microcytic hypochromic anemia. Iron studies are consistent with iron deficiency. The cause of the iron deficiency is menorrhagia. MOTION PICTURE PHOTOGRAPHER has been consulted and their input is still pending. My recommendation is to check the serum ferritin and give her Venofer IV tomorrow morning. We discussed the risks, benefits and alternatives of iron infusion. The patient has agreed with that. She stated that in the past she was advised to take oral iron, however she takes maybe once or twice a month which of course is not enough for her iron deficiency. Therefore I will give her IV Venofer. Further recommendations based on the hospital stay. Thank you for asking my opinion. Tommie Cid MD /SSB /10:21 PM /7:03 AM MTDD
[2017-06-07] MEDS: SODIUM CHLORIDE 0.9% FLUSH 10 ML FLUSH IV FLUSH SCH (07:25)
--- NOTE | 2017-06-07 07:46 | PD.CARD.PN ---
Subjective Subjective Remarks no events overnight. Denies chest pain or sob. Objective Medications Current Medications Medications (Trade) Dose Ordered Sig/Kurt Route Start Time Stop Time Status Last Admin (NS Flush) 2 ml BID IV FLUSH 06/04/17 21:00 06/07/17 07:25 (NS Flush) 2 ml UNSCH PRN IV FLUSH 06/04/17 12:45 (Ecotrin Ec) 325 mg DAILY PO 06/05/17 09:00 06/06/17 10:05 (Nitrostat Sl) 0.4 mg Q5M PRN SL 06/04/17 12:45 (Coreg) 3.125 mg BID PO 06/04/17 12:45 06/06/17 21:28 (Tylenol) 650 mg Q4H PRN PO 06/04/17 13:00 06/07/17 02:12 Ceftriaxone Sodium 1000 mg/ Sodium Chloride 100 ml @ 200 mls/hr Q24H IV 06/05/17 07:00 06/07/17 05:16 (Ferrous Sulfate) 325 mg BID PO 06/06/17 09:00 06/06/17 21:07 Iron Sucrose 500 mg/Sodium Chloride 275 ml @ 68.75 mls/ hr ONCE ONCE IV 06/07/17 06:00 06/07/17 09:59 06/07/17 05:57 Vital Signs / I&O Vital Signs Date Time Temp Pulse Resp B/P (MAP) Pulse Ox O2 Delivery O2 Flow Rate FiO2 06/07/17 04:00 97.9 103 18 152/96 (114) 97 06/07/17 00:00 Room Air 06/07/17 00:00 99.0 107 18 135/90 (105) 95 06/06/17 20:05 112 06/06/17 20:00 Room Air 06/06/17 20:00 98.8 112 18 128/73 (91) 99 06/06/17 15:30 97 Room Air 06/06/17 13:44 100 20 128/88 (101) 95 06/06/17 12:00 98.6 104 20 140/95 (110) 94 06/06/17 11:30 103 06/06/17 11:14 103 06/06/17 08:30 Room Air 06/06/17 08:00 113 06/06/17 08:00 98.4 107 20 147/98 (114) 98 I/O 06/06/17 06/06/17 06/06/17 06/07/17 06/07/17 06/07/17 07:00 15:00 23:00 07:00 15:00 23:00 Intake Total 445.1 ml 480 ml Output Total 300 ml Balance 145.1 ml 480 ml Intake Oral 100 ml 480 ml IV Total 345.1 ml Output Urine Total 300 ml # Voids 3 # Bowel Movements 0 0 Physical Exam GENERAL: SKIN: Warm and dry. HEAD: Atraumatic. Normocephalic. EYES: Pupils equal and round. NECK: Trachea midline. No JVD. CARDIOVASCULAR: tachycardic, normal rhythm, no murmurs. RESPIRATORY: No accessory muscle use. Clear to auscultation. Breath sounds equal bilaterally. MUSCULOSKELETAL: Extremities without clubbing, cyanosis, or edema. NEUROLOGICAL: Awake and alert. No obvious cranial nerve deficits. Normal speech. PSYCHIATRIC: Appropriate mood and affect; insight and judgment normal. Laboratory Laboratory Tests Test 06/06/17 08:35 White Blood Count 13.3 TH/MM3 Red Blood Count 4.39 MIL/MM3 Hemoglobin 8.3 GM/DL Hematocrit 28.4 % Mean Corpuscular Volume 64.7 FL Mean Corpuscular Hemoglobin 18.8 PG Mean Corpuscular Hemoglobin Concent 29.1 % Red Cell Distribution Width 19.8 % Platelet Count 383 TH/MM3 Mean Platelet Volume 8.2 FL Neutrophils (%) (Auto) 69.3 % Lymphocytes (%) (Auto) 19.5 % Monocytes (%) (Auto) 9.2 % Eosinophils (%) (Auto) 1.5 % Basophils (%) (Auto) 0.5 % Neutrophils # (Auto) 9.3 TH/MM3 Lymphocytes # (Auto) 2.6 TH/MM3 Monocytes # (Auto) 1.2 TH/MM3 Eosinophils # (Auto) 0.2 TH/MM3 Basophils # (Auto) 0.1 TH/MM3 CBC Comment DIFF FINAL Differential Comment Activated Partial Thromboplast Time 51.4 SEC Blood Urea Nitrogen 15 MG/DL Creatinine 1.07 MG/DL Random Glucose 122 MG/DL Total Protein 5.9 GM/DL Albumin 2.8 GM/DL Calcium Level 8.1 MG/DL Alkaline Phosphatase 59 U/L Aspartate Amino Transf (AST/SGOT) 16 U/L Alanine Aminotransferase (ALT/SGPT) 33 U/L Total Bilirubin 0.2 MG/DL Sodium Level 141 MEQ/L Potassium Level 3.9 MEQ/L Chloride Level 112 MEQ/L Carbon Dioxide Level 19.3 MEQ/L Anion Gap 10 MEQ/L Estimat Glomerular Filtration Rate 69 ML/MIN Ferritin 13 NG/ML Troponin I 0.40 NG/ML Thyroid Stimulating Hormone 3rd Gen 3.190 uIU/ML Human Chorionic Gonadotropin, Quant LESS THAN 1 MIU/ML Assessment and Plan Problem List: (1) Abnormal stress test ICD Codes: R94.39 - Abnormal result of other cardiovascular function study (2) Atypical chest pain ICD Codes: R07.89 - Other chest pain (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 Asymptomatic overnight. NSTEMI- s/p LHC. 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 anemia- and hematology following Delfina Judge Jun 07, 2017 07:46
[2017-06-07] MEDS: FERROUS SULFATE 325 MG (65 MG ELEMENTAL IRON) TAB PO SCH (08:01)
[2017-06-07] MEDS: CARVEDILOL 3.125 MG TAB PO SCH (08:01)
[2017-06-07] MEDS: ASPIRIN EC 325 MG TABEC PO SCH (08:01)
[2017-06-07 08:03] VITALS: BP 144/95; PULSE 102; RESP 20; TEMP 98.6; O2SAT 94
--- NOTE | 2017-06-07 08:07 | MB ---
cc: KATE BANKS DATE OF CONSULTATION 06/06/2017 A 37-year-old black female. DATE OF 1980 HISTORY A 37-year-old female that has history of hypertension. Apparently was in the [place] area, was seen at the [place] emergency department May 27 for left hip and leg pain, was treated for sciatic, sent home on Robaxin, diclofenac and prednisone, Medrol Dose. She said she has still been having a little bit of pain. She also was seen in the emergency department in April, been treated for gastroenteritis, was given IV fluids. Told she had a stomach virus at that time. 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 She has had no recent travel. She has been exposed to a coworker that recently came back from [place] that had some flu symptoms about a month ago. On admission her troponin was elevated as 0.69. They proceeded with a myocardial perfusion scan which showed dilated cardiomyopathy, diffuse hypokinesis in the inferior septal region. The patient also underwent transesophageal echocardiogram which showed an ejection fraction 20-25%, global left ventricular dysfunction, a pedunculated mobile echo density originating in the left atrial side of the intra-atrial septum, mild to moderate mitral regurgitation, structurally normal tricuspid valve, some moderate tricuspid regurgitation. There was no aortic valve stenosis or regurgitation. We were consulted secondary to possible myxoma, possible atrial thrombus. Interesting enough she does have a history of menorrhagia and has had extensive heavy menstrual cycle and a regular monthly however, they last about 7 days. She says she does bleed significantly and uses a box of pads every 2 days. She has had this since age of 8. She has not seen a lucerne farmer. However, she was treated with some control pills in the past but that did not seem to improve her vaginal bleeding, and incidentally enough she has also complained of some left scapular shoulder pain which then gets associated with belching and burping. She has had this for about a month. She has been short of breath with or without exertion for the past couple of weeks. Does have difficulty lying flat. The chest discomfort is up in the left shoulder area. She underwent cardiac cath today that showed no evidence of obstructive disease. Ejection fraction was also 25%. PAST MEDICAL HISTORY Significant for: 1. Hypertension, untreated. 2. Diverticular disease recently diagnosed. 3. Menorrhagia. PAST SURGICAL HISTORY No past surgical history. ALLERGIES NONE KNOWN ALLERGIES. MEDICATIONS She takes no medication. FAMILY HISTORY Mother is alive and well, diabetes and hypertension. Father his 50s from pneumonia. SOCIAL HISTORY The patient is single. No children. Denies any illicit drugs. No IV drug use. She does smoke a cigar daily. REVIEW OF SYSTEMS GENERAL: No night sweats, fever, heat or cold intolerance. SKIN: No psoriasis, itching or hives. HEENT: No blurred vision, hearing loss. RESPIRATORY: Positive for shortness of breath. CARDIOVASCULAR: As above in the HPI. GASTROINTESTINAL: No nausea or vomiting, diarrhea. GENITOURINARY: No burning, frequency, urgency. CENTRAL NERVOUS SYSTEM: No history of TIA, CVA, seizure disorder. ENDOCRINOLOGY: No history of diabetes and/or hypothyroidism. PHYSICAL EXAMINATION VITAL SIGNS: On exam blood pressure 120/80, heart rate of 100, afebrile. O2 saturation 95% on room air. GENERAL: The patient is awake, alert, in no acute distress. HEENT: Head is normocephalic, atraumatic. Pupils equal and reactive. Oral mucosa pink, moist. NECK: Supple. No JVD. CARDIOVASCULAR: Heart sounds S1-S2, regular rate and rhythm. No rubs or gallops. LUNGS: Clear to auscultation. No wheezes, rales or rhonchi. ABDOMEN: Soft, nontender. No masses or organomegaly. EXTREMITIES: No cyanosis, clubbing or edema. LABORATORY DATA Lab work shows hemoglobin 7.9, hematocrit 28, white cell count 13, platelet count 385. Sodium 144, potassium 3.9, BUN 16, creatinine 1.10. Troponin 0.69. Negative beta hCG. Heme negative in the stool. The patient did have a large leukocyte esterase in a urine that was done on the . Culture was indicated. Possible contaminant on the culture which needs to be rechecked. IMPRESSION 1. Again this is a 37-year-old female with recent admission with shortness of breath, left-sided chest discomfort, elevated troponin. Underwent myocardial perfusion scan which showed dilated cardiomyopathy with diffuse hypokinesis. Her transesophageal echocardiogram also showed EF of 25% and a pedunculated mobile echodensity originating in the left atrial side. Mild to moderate mitral regurgitation. Negative cardiac catheterization for obstructive disease. At this time the patient needs further workup. She does have microcytic anemia which could be related to her chronic menorrhagia but I would recommend that she undergo hematology workup. 2. Recent treatment for UTI. She is on Rocephin. Would also check blood cultures. Concern is for viral myocarditis, also with atrial myxoma versus thrombus the patient still requires complete workup. Will continue to follow at this time. DICTATED BY: CEFERINO Mendoza Kate MD ANGELINA Fabian/KK /5:04 PM /8:11 AM
[2017-06-07 09:02] LABS: BASOPHIL # 0.1 TH/MM3 (0-0.2); BASOPHIL % 0.9 % (0.0-2.0); EOSINOPHIL # 0.3 TH/MM3 (0-0.4); EOSINOPHIL % 2.6 % (0.0-4.0); HEMO FLAGS DIFF FINAL; LYMPH % 18.9 % (9.0-44.0); LYMPHOCYTE # 2.2 TH/MM3 (1.0-4.8); MEAN CELL VOLUME 65.2 FL (80.0-100.0); MEAN CORPUSCULAR HEMOGLOBIN 19.2 PG (27.0-34.0); MONO % 9.2 % (0.0-8.0); NEUT % 68.4 % (16.0-70.0); PLATELET COUNT 381 TH/MM3 (150-450); RED BLOOD COUNT 4.44 MIL/MM3 (4.00-5.30); RED CELL DISTRIBUTION WIDTH 19.7 % (11.6-17.2); WHITE BLOOD COUNT 11.7 TH/MM3 (4.0-11.0)
[2017-06-07 09:12] LABS: MEAN CORPUSCULAR HGB CONC 29.5 % (32.0-36.0)
[2017-06-07 09:23] LABS: APTT (PATIENT) 26.4 SEC (24.3-30.1)
[2017-06-07 09:28] LABS: ANION GAP 11 MEQ/L (5-15); AST (GOT) 26 U/L (15-37); BICARBONATE 20.2 MEQ/L (21.0-32.0); BLOOD UREA NITROGEN 11 MG/DL (7-18); CHLORIDE 110 MEQ/L (98-107); GLOMERULAR FILTRATION RATE 71 ML/MIN (>89); POTASSIUM 3.6 MEQ/L (3.5-5.1); SODIUM (NA) 141 MEQ/L (136-145)
[2017-06-07 09:30] LABS: ALT (GPT) 36 U/L (10-53)
[2017-06-07 09:33] LABS: ALKALINE PHOSPHATASE 54 U/L (45-117); TOTAL BILIRUBIN ADULT 0.3 MG/DL (0.2-1.0)
[2017-06-07 12:03] VITALS: BP 137/85; PULSE 104; RESP 20; TEMP 99.1; O2SAT 96
[2017-06-07] MEDS ORDERED: FURO1TAB62 PO (13:11)
[2017-06-07] MEDS ORDERED: FERR325T20 PO (13:11)
[2017-06-07] MEDS ORDERED: CARV3.125 PO (13:11)
[2017-06-07] MEDS ORDERED: ASPI325T33 PO (13:11)
--- NOTE | 2017-06-07 13:18 | HHI.DS ---
Discharge Summary Admission Date Jun 04, 2017 at 13:11 Discharge Date: Jun 07, 2017 Admitting Diagnosis (1) Anemia ICD Code: D64.9 - Anemia, unspecified Diagnosis: Principal (2) Elevated brain natriuretic peptide (BNP) level ICD Code: R79.89 - Other specified abnormal findings of blood chemistry Diagnosis: Principal (3) Elevated troponin ICD Code: R74.8 - Abnormal levels of other serum enzymes Diagnosis: Principal (4) Atypical chest pain ICD Code: R07.89 - Other chest pain Diagnosis: Principal (5) HTN (hypertension) ICD Code: I10 - Essential (primary) hypertension Diagnosis: Principal Procedures Heart catheterization Brief History - From Admission This patient is a 37-year-old female with a history of hypertension which is untreated. She went to the emergency room complaining of left-sided shoulder vague discomfort rated 3 out of 10 and with elevated blood pressures at home. Patient says her blood pressure at home was 179/130. She has had high blood pressures before but never this high. She has a diagnosis of hypertension but is not on any medications. She also complained of nonradiating left-sided shoulder pain and associated shortness of breath with dyspnea on exertion. She had been dizzy and short of breath for the last month. 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 She has had no anginal-type complaints of pain or chest tightness, however over the last month to today The discomfort has become worse. Patient also has menorrhagia although she is not currently on her menstrual cycle. She went to the emergency room and melatonin was found to have elevated cardiac enzymes, and abnormal CT chest as well as anemia. Patient was transferred to this facility for further evaluation and treatment. At this time the patient is pain free CBC/BMP: 06/07/17 0746 06/07/17 0746 Significant Findings Laboratory Tests Test 06/04/17 14:14 06/04/17 18:16 06/04/17 20:35 06/05/17 04:21 White Blood Count 13.8 TH/MM3 (4.0-11.0) Hemoglobin 8.2 GM/DL (11.6-15.3) Hematocrit 27.2 % (35.0-46.0) Mean Corpuscular Volume 65.5 FL (80.0-100.0) Mean Corpuscular Hemoglobin 19.7 PG (27.0-34.0) Mean Corpuscular Hemoglobin Concent 30.1 % (32.0-36.0) Red Cell Distribution Width 19.7 % (11.6-17.2) Activated Partial Thromboplast Time 49.0 SEC (24.3-30.1) 49.9 SEC (24.3-30.1) 46.9 SEC (24.3-30.1) Troponin I 0.54 NG/ML (0.02-0.05) Iron Level 13 MCG/DL (50-170) Percent Iron Saturation 3.8 % (20-50) Test 06/06/17 08:35 06/07/17 07:46 White Blood Count 13.3 TH/MM3 (4.0-11.0) 11.7 TH/MM3 (4.0-11.0) Hemoglobin 8.3 GM/DL (11.6-15.3) 8.5 GM/DL (11.6-15.3) Hematocrit 28.4 % (35.0-46.0) 29.0 % (35.0-46.0) Mean Corpuscular Volume 64.7 FL (80.0-100.0) 65.2 FL (80.0-100.0) Mean Corpuscular Hemoglobin 18.8 PG (27.0-34.0) 19.2 PG (27.0-34.0) Mean Corpuscular Hemoglobin Concent 29.1 % (32.0-36.0) 29.5 % (32.0-36.0) Red Cell Distribution Width 19.8 % (11.6-17.2) 19.7 % (11.6-17.2) Monocytes (%) (Auto) 9.2 % (0.0-8.0) 9.2 % (0.0-8.0) Neutrophils # (Auto) 9.3 TH/MM3 (1.8-7.7) 8.0 TH/MM3 (1.8-7.7) Monocytes # (Auto) 1.2 TH/MM3 (0-0.9) 1.1 TH/MM3 (0-0.9) Activated Partial Thromboplast Time 51.4 SEC (24.3-30.1) Creatinine 1.07 MG/DL (0.50-1.00) 1.05 MG/DL (0.50-1.00) Random Glucose 122 MG/DL (74-106) Total Protein 5.9 GM/DL (6.4-8.2) Albumin 2.8 GM/DL (3.4-5.0) 2.9 GM/DL (3.4-5.0) Calcium Level 8.1 MG/DL (8.5-10.1) 8.2 MG/DL (8.5-10.1) Chloride Level 112 MEQ/L (98-107) 110 MEQ/L (98-107) Carbon Dioxide Level 19.3 MEQ/L (21.0-32.0) 20.2 MEQ/L (21.0-32.0) Estimat Glomerular Filtration Rate 69 ML/MIN (>89) 71 ML/MIN (>89) Troponin I 0.40 NG/ML (0.02-0.05) Hospital Course Mrs. Anthony is a 37 year old female. She came in originally with atypical chest pain and the presence of anemia. She has a recurrent history of menorrhagia. Workup revealed elevated troponins and a more extensive cardiac workup has revealed cardiomyopathy with ejection fraction of 20-25% seen on echocardiogram, stress test, and heart catheter. She has evidence of NSTEMI, no stenting needed, likely related to cardiomyopathy. She's had no arrhythmias. Further findings on echocardiogram and FAMILIA showed an atrial myxoma versus thrombus in the left atrium. Anticoagulation is recommended, but patient has severe anemia and recurrent menorrhagia. Hemoglobin levels are 8.5 which is a slight increase compared to when she came in. Gynecology has recommended uterine ablation as an outpatient. Hematology has started iron infusions and may continue further treatments as an outpatient. Cardiothoracic surgery recommends treating anemia following up in 1 month for possible excision of the atrium myxoma. She is recommended to use aspirin right now but to hold aspirin if she has any significant bleeding. Stronger blood thinners cannot be visualized at this point but may be utilized after ablation. Evidence of urinary tract infection was also present admitted, 3 days of Rocephin provided. UTI was borderline and 3 days IV Rocephin should be adequate for treatment. Cultures did not show any other bacteria mixed jalen. Patient has no symptoms of infection. Hematology, cardiothoracic surgery, and gynecology have clear patient for outpatient follow-up. Case discussed with cardiology and they agree with this plan. Medically stable for discharge to home today. Return to work with light duty in 1 week. Other medications will include iron supplement, as needed Lasix for shortness of breath or swelling, daily aspirin, and carvedilol. Pt Condition on Discharge: Stable Discharge Disposition: Discharge Home Discharge Time: <= 30 minutes Discharge Instructions DIET: Follow Instructions for: Heart Healthy Diet Activities you can perform: Regular-No Restrictions Follow up Referrals: Cardiology - 2 Weeks INDUSTRIAL MACHINE ASSEMBLER - 2-3 Days PCP Follow-up - 1 Week Surgical - 3 Weeks New Medications: Furosemide (Lasix) 20 Mg Tab 20 MG PO BID PRN for Swelling or Shortness of Breat, #30 TAB [address] (Aspirin EC) 325 Mg Tabdr 325 MG PO DAILY for Blood Clot Prevention, #30 TAB Hold for bleeding Carvedilol (Coreg) 3.125 Mg Tab 3.125 MG PO BID for Blood Pressure Management, #60 TAB Ferrous Sulfate (Ferosul) 325 Mg (65 Mg Iron) Tablet 325 MG PO BID for Anemia, #60 CAP Julio Wang MD Jun 07, 2017 13:17
--- NOTE | 2017-06-07 13:20 | PD.ONC.PN ---
Subjective Subjective Remarks Afebrile overnight. Patient resting in room receiving IV Venofer. Tolerating iron without reaction. Denies itching. Denies dizziness. Objective Data Date Time Temp Pulse Resp B/P (MAP) Pulse Ox O2 Delivery O2 Flow Rate FiO2 06/07/17 08:03 98.6 102 20 144/95 (111) 94 06/07/17 04:00 97.9 103 18 152/96 (114) 97 06/07/17 00:00 Room Air 06/07/17 00:00 99.0 107 18 135/90 (105) 95 06/06/17 20:05 112 06/06/17 20:00 Room Air 06/06/17 20:00 98.8 112 18 128/73 (91) 99 06/06/17 15:30 97 Room Air 06/06/17 13:44 100 20 128/88 (101) 95 06/07/17 06/07/17 06/07/17 07:00 15:00 23:00 Intake Total 480 ml Balance 480 ml Result Diagram: 06/07/17 0746 06/07/17 0746 Laboratory Results Laboratory Tests Test 06/07/17 07:46 White Blood Count 11.7 TH/MM3 Red Blood Count 4.44 MIL/MM3 Hemoglobin 8.5 GM/DL Hematocrit 29.0 % Mean Corpuscular Volume 65.2 FL Mean Corpuscular Hemoglobin 19.2 PG Mean Corpuscular Hemoglobin Concent 29.5 % Red Cell Distribution Width 19.7 % Platelet Count 381 TH/MM3 Mean Platelet Volume 8.6 FL Neutrophils (%) (Auto) 68.4 % Lymphocytes (%) (Auto) 18.9 % Monocytes (%) (Auto) 9.2 % Eosinophils (%) (Auto) 2.6 % Basophils (%) (Auto) 0.9 % Neutrophils # (Auto) 8.0 TH/MM3 Lymphocytes # (Auto) 2.2 TH/MM3 Monocytes # (Auto) 1.1 TH/MM3 Eosinophils # (Auto) 0.3 TH/MM3 Basophils # (Auto) 0.1 TH/MM3 CBC Comment DIFF FINAL Differential Comment Activated Partial Thromboplast Time 26.4 SEC Blood Urea Nitrogen 11 MG/DL Creatinine 1.05 MG/DL Random Glucose 106 MG/DL Total Protein 6.4 GM/DL Albumin 2.9 GM/DL Calcium Level 8.2 MG/DL Alkaline Phosphatase 54 U/L Aspartate Amino Transf (AST/SGOT) 26 U/L Alanine Aminotransferase (ALT/SGPT) 36 U/L Total Bilirubin 0.3 MG/DL Sodium Level 141 MEQ/L Potassium Level 3.6 MEQ/L Chloride Level 110 MEQ/L Carbon Dioxide Level 20.2 MEQ/L Anion Gap 11 MEQ/L Estimat Glomerular Filtration Rate 71 ML/MIN Culture Results Microbiology Date/Time Source Procedure Growth Status 06/06/17 21:15 Blood Peripheral Aerobic Blood Culture - Preliminary NO GROWTH IN 1 DAY Resulted 06/06/17 21:15 Blood Peripheral Anaerobic Blood Culture - Preliminary NO GROWTH IN 1 DAY Resulted 06/06/17 21:07 Blood Peripheral Aerobic Blood Culture - Preliminary NO GROWTH IN 1 DAY Resulted 06/06/17 21:07 Blood Peripheral Anaerobic Blood Culture - Preliminary NO GROWTH IN 1 DAY Resulted 06/05/17 15:10 Stool Stool Stool Occult Blood (MÓNICA) - Final HEMOCCULT NEGATIVE Complete Administered Medications Medications (Trade) Dose Ordered Sig/Kurt Route PRN Reason Start Time Stop Time Status Last Admin Dose Admin Sodium Chloride (NS Flush) 2 ml BID IV FLUSH 06/04/17 21:00 06/07/17 07:25 Aspirin (Ecotrin Ec) 325 mg DAILY PO 06/05/17 09:00 06/07/17 08:01 Carvedilol (Coreg) 3.125 mg BID PO 06/04/17 12:45 06/07/17 08:01 Acetaminophen (Tylenol) 650 mg Q4H PRN PO pain or fever 06/04/17 13:00 06/07/17 02:12 Ceftriaxone Sodium 1000 mg/ Sodium Chloride 100 ml @ 200 mls/hr Q24H IV 06/05/17 07:00 06/07/17 05:16 Ferrous Sulfate (Ferrous Sulfate) 325 mg BID PO 06/06/17 09:00 06/07/17 08:01 Objective Remarks GENERAL: Young woman, sitting up in bed in [facility]. SKIN: Warm and dry. HEAD: Normocephalic. EYES: No scleral icterus. No injection or drainage. NECK: Supple, trachea midline. CARDIOVASCULAR: Regular rate and rhythm RESPIRATORY: Breath sounds equal bilaterally. No accessory muscle use. GASTROINTESTINAL: Abdomen soft, non-tender, nondistended. EXTREMITIES: No cyanosis NEUROLOGICAL: No obvious focal deficit. Awake, alert, and oriented x3. Assessment/Plan Problem List: (1) Microcytic anemia ICD Codes: D50.9 - Iron deficiency anemia, unspecified Plan: 06/07: continue IV Venofer. monitor CBC. --Microcytic hypochromic anemia due to iron deficiency. --Iron deficiency from menorrhagia. Assessment 37y/o female with microcytic hypochromic anemia. h/o Diverticulosis. Menorrhagia. Attending Statement The exam, history, and the medical decision-making described in the above note were completed with the assistance of the mid-level provider. I reviewed and agree with the findings presented. I attest that I had a [id number] encounter with the patient on the same day, and personally performed and documented my assessment and findings in the medical record. No new complaints Patient seen by RADIO INTELLIGENCE OPERATOR , input noted IV iron today Royal can be followed as an outpatient Sarah Alvarado Jun 07, 2017 13:20 Margaux Cid MD Jun 07, 2017 21:45
== END 2017-06-07 15:32 | disposition home or self-care (01) | DRG 281 ==
LOC: NEDDLT 13:00 → HCPC 13:11 → N04B 22:06
PROVIDERS: ADMIT Hospitalist; ATTEND Hospitalist
PROC: B2111ZZ Fluoroscopy of Multiple Coronary Arteries using Low Osmolar Contrast (ICD-10-PCS; 2017-06-06)
PROC: 4A023N7 Measurement of Cardiac Sampling and Pressure, Left Heart, Percutaneous Approach (ICD-10-PCS; principal; 2017-06-06 13:30)
DX: I21.4 Non-ST elevation (NSTEMI) myocardial infarction (principal); N39.0 Urinary tract infection, site not specified; I42.0 Dilated cardiomyopathy; I10 Essential (primary) hypertension; D50.9 Iron deficiency anemia, unspecified; F17.210 Nicotine dependence, cigarettes, uncomplicated; I08.1 Rheumatic disorders of both mitral and tricuspid valves; N92.0 Excessive and frequent menstruation with regular cycle; D15.1 Benign neoplasm of heart; K57.90 Diverticulosis of intestine, part unspecified, without perforation or abscess without bleeding
CPT/HCPCS: 76830; 76856; 78452; 80053; 82272; 82550; 82552; 82728; 83540; 83550; 84443; 84484; 84702; 85025; 85027; 85610; 85730; 86850; 86900; 86901; 87040; 93005; 93017; 93306; 93312; 93320; 93325; 93458; 94664; 99152; A9502; C1769; C1893; J0360; J0696; J1644; J1756; J2250; J2785; J3010; J7050; J7613; Q9967

== ENCOUNTER 2017-08-12 14:16 | Emergency (ER) | payer OTHER ==
[~2017-08-12] VITALS: Ht 167.6 cm; Wt 100.0 kg
[~2017-08-12 14:16] MED LIST changes: +ASPI325T33 PO; +CARV3.125 PO; +CARV6.25 PO; -DICL75TA PO; +FERR325T20 PO; +FURO1TAB62 PO; -PERC5TAB12 PO; +POTA10TA2 PO; -PRED20 PO; +PROG100C PO; -ROBA750T PO
[2017-08-12 14:52] VITALS: BP 140/88; TEMP 98.2; O2SAT 96
--- NOTE | 2017-08-12 14:56 | PD ---
HPI Chief Complaint: left leg pain Time Seen by Provider: 14:38 Travel History International Travel<30 days: No Contact w/Intl Traveler<30days: No Traveled to known affect area: No History of Present Illness HPI The patient was seen and examined in the presence of the nurse. This patient was transferred from [place] emergency room to get an ultrasound of her left leg to rule out DVT. Complains of left leg pain and soreness in her calf. Denies injury. Duration 3 days. Severity is mild to moderate. No alleviating factors. No Exacerbating factors. No prior history of DVT. PFSH Past Medical History Anemia: Yes Cancer: No Cardiac Catheterization: Yes Cardiovascular Problems: Yes (CHF) Chest Pain: Yes Congestive Heart Failure: Yes Cerebrovascular Accident: Yes (HTN) Diminished Hearing: No Endocrine: No Genitourinary: No Hypertension: Yes Immune Disorder: No Musculoskeletal: Yes Neurologic: No Psychiatric: No Reproductive: No Immunizations Current: Yes Past Surgical History Coronary Artery Bypass Graft: No Social History Alcohol Use: No Tobacco Use: No Substance Use: No Allergies-Medications (Allergen,Severity, Reaction): Coded Allergies: No Known Allergies (Unverified , 06/04/17) Reported Meds & Prescriptions Reported Meds & Active Scripts Active Aspirin EC (Aspirin) 325 Mg Tabdr 325 Mg PO DAILY Hold for bleeding Reported Progesterone Micronized 100 Mg Cap 100 Mg PO DAILY Potassium Chloride ER (Potassium Chloride) 10 Meq Tab 10 Meq PO DAILY Coreg (Carvedilol) 6.25 Mg Tab 6.25 Mg PO BID Lasix (Furosemide) 20 Mg Tab 20 Mg PO DAILY Review of Systems General / Constitutional: No: Fever Eyes: No: Visual changes HENT: No: Headaches Cardiovascular: No: Chest Pain or Discomfort Respiratory: No: Shortness of Breath Gastrointestinal: No: Abdominal Pain Genitourinary: No: Dysuria Musculoskeletal: Positive: Myalgias, Pain Skin: No Rash Neurologic: No: Weakness Psychiatric: No: Depression Endocrine: No: Polydipsia Hematologic/Lymphatic: No: Easy Bruising Physical Exam Narrative GENERAL: Well-nourished, well-developed patient in no apparent distress. SKIN: Focused skin assessment reveals no rash and nodules. Skin is Warm and dry. HEAD: Atraumatic. Normocephalic. EYES: Pupils equal and round. No scleral icterus. No injection or drainage. ENT: No nasal bleeding or discharge. Mucous membranes pink and moist. NECK: Trachea midline. No JVD. CARDIOVASCULAR: Regular rate and rhythm. No murmur appreciated. RESPIRATORY: No accessory muscle use. Clear to auscultation. Breath sounds equal bilaterally. GASTROINTESTINAL: Abdomen soft, non-tender, nondistended. Hepatic and splenic margins not palpable. MUSCULOSKELETAL: No obvious deformities. No clubbing. No cyanosis. No pitting edema. No erythema or warmth of the left lower leg. No asymmetry noted. No tenderness. NEUROLOGICAL: Awake and alert. No obvious cranial nerve deficits. Motor grossly within normal limits. Normal speech. PSYCHIATRIC: Appropriate mood and affect; insight and judgment normal. Data Data Last Documented VS Vital Signs Date Time Temp Pulse Resp B/P (MAP) Pulse Ox O2 Delivery O2 Flow Rate FiO2 08/12/17 14:52 98.2 109 17 140/88 (105) 96 Orders Orders Us Leg Venous Doppler (08/12/17 ) MDM Medical Decision Making Medical Screen Exam Complete: Yes Emergency Medical Condition: Yes Medical Record Reviewed: Yes Interpretation(s) DVT, myalgia, calf injury Differential Diagnosis I have reviewed the patient's electronic medical record. Reviewed her chest x- ray and lab studies from earlier today I've ordered ultrasound of her left leg to evaluate for DVT. Ultrasound is negative Stable for outpatient follow-up Narrative Course See above Diagnosis Primary Impression: Left leg pain Additional Instructions: The patient was advised to follow up with their physician and return if they worsen. Med/Other Pt SpecificInfo: Other Disposition: 01 DISCHARGE HOME Condition: Stable Antonio Parr MD Aug 12, 2017 14:56
--- NOTE | 2017-08-12 15:35 | RADRPT ---
EXAM DATE/TIME: 08/12/2017 15:08 [facility] COMPARISON: No previous studies available for comparison. INDICATIONS : Left leg swelling. MEDICAL HISTORY : Congestive heart failure. Hypertension. Sciatica. Anemia. SURGICAL HISTORY : Cardiac catheterization. ENCOUNTER: Initial ACUITY: 1 week PAIN SCORE: 4/10 LOCATION: Left leg. TECHNIQUE: Venous ultrasound of the leg was performed from the inguinal ligament to the proximal calf. Real-morales e, color Doppler and spectral tracing, compression and augmentation techniques were used. FINDINGS: There is normal compressibility of the deep venous system from the inguinal region to the proximal ca lf. No echogenic clot is seen in the lumen of the common femoral, femoral, popliteal, and posterior tibial veins. There is a normal response of the venous system to proximal and distal augmentation an d respiration. CONCLUSION: Normal examination. Fausto Lujan MD on August 12, 2017 at 15:33 Board Certified Radiologist. This report was verified electronically.
[2017-08-29] MEDS ORDERED: FURO1TAB60 PO (14:40)
[2017-08-29] MEDS ORDERED: CARV12.5 PO (14:40)
== END 2017-08-12 17:50 | disposition home or self-care (01) ==
LOC: NEPD 14:16
DX: M79.662 Pain in left lower leg (principal); I10 Essential (primary) hypertension; I50.9 Heart failure, unspecified; Z86.2 Personal history of diseases of the blood and blood-forming organs and certain disorders involving the immune mechanism; Z87.39 Personal history of other diseases of the musculoskeletal system and connective tissue
CPT/HCPCS: 71045; 80048; 83880; 84484; 85025; 85379; 93005; 93971; 99284

== ENCOUNTER 2017-08-29 22:10 | Inpatient (IN) | payer OTHER ==
[~2017-08-29] VITALS: Ht 165.1 cm; Wt 117.8 kg
[~2017-08-29 22:10] MED LIST changes: +CARV12.5 PO; -CARV3.125 PO; -FERR325T20 PO; +FURO1TAB60 PO
[2017-08-29 23:00] VITALS: BP 112/56; PULSE 117; RESP 18; TEMP 98.3; O2SAT 95
[2017-08-29] MEDS ORDERED: SODIUM CHLORIDE 0.9% FLUSH 10 ML FLUSH IV FLUSH PRN (23:45)
[2017-08-30] VITALS (10 sets, daily range): BP systolic 96–116; BP diastolic 64–87; PULSE 101–112; RESP 18–19; TEMP 98.6–100; O2SAT 95–98
[2017-08-30] MEDS ORDERED: ENOXAPARIN SODIUM 40 MG/0.4 ML SYRINGE SQ SCH
[2017-08-30] MEDS: CARVEDILOL 12.5 MG TAB PO SCH ×3 (01:23→20:28)
--- NOTE | 2017-08-30 01:28 | HHI.HP ---
HPI Service [facility] Primary Care Physician No Primary Care Physician Admission Diagnosis Diagnoses: Travel History International Travel<30 Days: No Contact w/Intl Traveler <30 Da: No Traveled to Known Affected Are: No History of Present Illness 37-year-old female with a past medical history significant for CHF (last echo with an EF of less than 20%) and HTN presents to the emergency department for evaluation of increasing shortness of breath and chest pain. The patient also complains of bilateral lower extremity edema that began this weekend. She states she has been unable to put on her shoes. She had associated shortness of breath and chest pain that she describes as underneath her breasts bilaterally and sharp. Worse with inspiration. She endorses a dry cough. Shortness of breath is worse with activity. She denies fever/chills. Denies nausea/vomiting/diarrhea. Review of Systems Except as stated in HPI: all other systems reviewed are Neg Past Family Social History Past Medical History CHF (EF of less than 20%) Hypertension Past Surgical History Cardiac catheterization in May 2017, no stents placed Reported Medications Reported Meds & Active Scripts Active Aspirin EC (Aspirin) 325 Mg Tabdr 325 Mg PO DAILY Hold for bleeding Reported Coreg (Carvedilol) 12.5 Mg Tab 12.5 Mg PO BID Lasix (Furosemide) 40 Mg Tab 40 Mg PO DAILY Progesterone Micronized 100 Mg Cap 200 Mg PO HS Potassium Chloride ER (Potassium Chloride) 10 Meq Tab 10 Meq PO DAILY Allergies: Coded Allergies: No Known Allergies (Unverified , 08/29/17) Family History Mother with diabetes mellitus Social History Occasional alcohol. Denies tobacco, illicit drugs Physical Exam Physical Exam GENERAL: Obese, female lying in bed sleeping SKIN: No rashes, ecchymoses or lesions. Cool and dry. HEAD: Atraumatic. Normocephalic. No temporal or scalp tenderness. EYES: Pupils equal round and reactive. Extraocular motions intact. No scleral icterus. No injection or drainage. ENT: Nose without bleeding, purulent drainage or septal hematoma. Throat without erythema, tonsillar hypertrophy or exudate. Uvula midline. Airway patent. NECK: Trachea midline. No JVD or lymphadenopathy. Supple, nontender, no meningeal signs. CARDIOVASCULAR: Regular rate and rhythm without murmurs, gallops, or rubs. RESPIRATORY: Bilateral crackles GASTROINTESTINAL: Abdomen soft, non-tender, nondistended. No hepato-splenomegaly , or palpable masses. No guarding. MUSCULOSKELETAL: 2+ pitting edema to the knees. No calf tenderness. NEUROLOGICAL: Awake and alert. Cranial nerves II through XII intact. Motor and sensory grossly within normal limits. Normal speech. Caprini VTE Risk Assessment Caprini VTE Risk Assessment: No/Low Risk (score <= 1) Caprini Risk Assessment Model Point Value = 1 Point Value = 2 Point Value = 3 Point Value = 5 Age 41-60 Minor surgery BMI > 25 kg/m2 Swollen legs Varicose veins or History of unexplained or recurrent spontaneous Oral contraceptives or hormone replacement Sepsis (< 1 month) Serious lung disease, including pneumonia (< 1 month) Abnormal pulmonary function Acute myocardial infarction Congestive heart failure (< 1 month) History of inflammatory bowel disease Medical patient at bed rest Age 61-74 Arthroscopic surgery Major open surgery (> 45 min) Laparoscopic surgery (> 45 min) Malignancy Confined to bed (> 72 hours) Immobilizing plaster cast Central venous access Age >= 75 History of VTE Family history of VTE Factor V Leiden Prothrombin [id number] Lupus anticoagulant Anticardiolipin antibodies Elevated serum homocysteine Heparin-induced thrombocytopenia Other congenital or acquired thrombophilia Stroke (< 1 month) Elective arthroplasty Hip, pelvis, or leg fracture Acute spinal cord injury (< 1 month) Prophylaxis Regimen Total Risk Factor Score Risk Level Prophylaxis Regimen 0-1 Low Early ambulation 2 Moderate Order ONE of the following: *Sequential Compression Device (SCD) *Heparin 5000 units SQ BID 3-4 Higher Order ONE of the following medications: *Heparin 5000 units SQ TID *Enoxaparin/Lovenox 40 mg SQ daily (WT < 150 kg, CrCl > 30 mL/min) *Enoxaparin/Lovenox 30 mg SQ daily (WT < 150 kg, CrCl > 10-29 mL/min) *Enoxaparin/Lovenox 30 mg SQ BID (WT < 150 kg, CrCl > 30 mL/min) AND/OR *Sequential Compression Device (SCD) 5 or more Highest Order ONE of the following medications: *Heparin 5000 units SQ TID (Preferred with Epidurals) *Enoxaparin/Lovenox 40 mg SQ daily (WT < 150 kg, CrCl > 30 mL/min) *Enoxaparin/Lovenox 30 mg SQ daily (WT < 150 kg, CrCl > 10-29 mL/min) *Enoxaparin/Lovenox 30 mg SQ BID (WT < 150 kg, CrCl > 30 mL/min) AND *Sequential Compression Device (SCD) Assessment and Plan Assessment and Plan Assessment/plan: 1. CHF exacerbation Chest x-ray significant for cardiomegaly unchanged from previous without pulmonary vascular congestion, personally reviewed BNP 704 IV Lasix Monitor for signs of volume overload, respiratory distress 2. Chest pain/elevated troponin EKG shows sinus tachycardia without ST segment elevations or depressions, personally reviewed Initial troponin 0.17, baseline for the patient Given patient is having chest pain, obtain serial troponin/EKGs 3. Hypertension Continue home medications FEN Heart healthy diet Electrolytes: monitor and replete prn Lovenox Physician Certification 2 Midnight Certification Type: Admission for Inpatient Services Order for Inpatient Services The services are ordered in accordance with Medicare regulations or non- Medicare payer requirements, as applicable. In the case of services not specified as inpatient-only, they are appropriately provided as inpatient services in accordance with the 2-midnight benchmark. Estimated LOS (days): 2 2 days is the estimated time the patient will need to remain in the hospital, assuming treatment plan goals are met and no additional complications. Post-Hospital Plan: Not yet determined Milla Rebolledo MD Aug 30, 2017 01:28
[2017-08-30 01:58] LABS: BASOPHIL # 0.1 TH/MM3 (0-0.2); BASOPHIL % 0.4 % (0.0-2.0); EOSINOPHIL % 0.3 % (0.0-4.0); HEMATOCRIT 33.2 % (35.0-46.0); HEMOGLOBIN 10.1 GM/DL (11.6-15.3); LYMPH % 15.9 % (9.0-44.0); LYMPHOCYTE # 2.6 TH/MM3 (1.0-4.8); MEAN CELL VOLUME 71.3 FL (80.0-100.0); MEAN CORPUSCULAR HEMOGLOBIN 21.7 PG (27.0-34.0); MEAN CORPUSCULAR HGB CONC 30.4 % (32.0-36.0); MEAN PLATELET VOLUME 8.2 FL (7.0-11.0); MONO % 9.3 % (0.0-8.0); MONOCYTE # 1.5 TH/MM3 (0-0.9); NEUT % 74.1 % (16.0-70.0); PLATELET COUNT 339 TH/MM3 (150-450); RED BLOOD COUNT 4.65 MIL/MM3 (4.00-5.30); RED CELL DISTRIBUTION WIDTH 20.5 % (11.6-17.2); WHITE BLOOD COUNT 16.2 TH/MM3 (4.0-11.0)
[2017-08-30 02:14] LABS: BICARBONATE 27.3 MEQ/L (21.0-32.0); BLOOD UREA NITROGEN 11 MG/DL (7-18); CALCIUM 7.9 MG/DL (8.5-10.1); CHLORIDE 108 MEQ/L (98-107); CREATININE 1.06 MG/DL (0.50-1.00); GLOMERULAR FILTRATION RATE 70 ML/MIN (>89); GLUCOSE,RANDOM 164 MG/DL (74-106); MAGNESIUM 1.9 MG/DL (1.5-2.5); SODIUM (NA) 142 MEQ/L (136-145)
[2017-08-30 02:17] LABS: TROPONIN I 0.18 NG/ML (0.02-0.05)
[2017-08-30] MEDS ORDERED: IOHEXOL 350 MG/ML 10 ML VIAL (for RAD DIAG) IVCONTRAST ONE (02:58)
--- NOTE | 2017-08-30 03:25 | RADRPT ---
EXAM DATE/TIME: 08/30/2017 02:56 [facility] COMPARISON: CT PULMONARY ANGIOGRAM, June 04, 2017, 6:22. INDICATIONS : Chest pain with swollen feet. Elevated D-Dimer. IV CONTRAST: 75 cc Omnipaque 350 (iohexol) IV RADIATION DOSE: 10.93 CTDIvol (mGy) MEDICAL HISTORY : Cardiovascular disease. Hypertension. SURGICAL HISTORY : None. ENCOUNTER: Initial ACUITY: 1 day PAIN SCALE: 6/10 LOCATION: Bilateral chest TECHNIQUE: Volumetric scanning of the chest was performed using a pulmonary embolism protocol MIP images were re constructed. Using automated exposure control and adjustment of the mA and/or kV according to patien t size, radiation dose was kept as low as reasonably achievable to obtain optimal diagnostic quality images. DICOM format image data is available electronically for review and comparison. Follow-up recommendations for detected pulmonary nodules are based at a minimum on nodule size and pa tient risk factors according to Fleischner Society Guidelines. FINDINGS: PULMONARY ARTERIES: There are filling defects within the lower lobe segmental and subsegmental pulmonary arteries bilater ally. LUNGS: There is a focal pleural-based area of airspace consolidation in the right lower lobe in the area con taining PE. No pneumothorax is present. PLEURAE: There is trace right pleural fluid. MEDIASTINUM: There may be thickening of the pulmonary valve. Heart is mildly enlarged. There are no findings to in dicate right heart strain. Small lymph nodes are present in the mediastinum. MUSCULOSKELETAL: No acute abnormality. MISCELLANEOUS: The visualized upper abdominal organs demonstrate no acute abnormality. CONCLUSION: 1. There are filling defects within the lower lobe segmental and subsegmental pulmonary arteries bila terally representing PE. There is a focal air space consolidation in the right lower lobe likely repr esenting infarct related to the PE. 2. Thickening of the pulmonary valve. Fausto Nation MD on August 30, 2017 at 3:19 Board Certified Radiologist. This report was verified electronically.
[2017-08-30] MEDS ORDERED: POTASSIUM CHLORIDE 25 MEQ EFFERVESCENT TAB NG ONE (04:45)
[2017-08-30] MEDS ORDERED: HEPARIN-D5W 25,000 U/250 ML 250 ML IV PRN (04:45)
[2017-08-30] MEDS: MORPHINE SULFATE 2 MG/ML INJ IV PUSH PRN ×4 (05:06→20:31)
[2017-08-30] MEDS: HEPARIN-D5W 25,000 U/250 ML 250 ML IV PRN ×2 (05:10→14:38)
[2017-08-30 06:43] LABS: HEMATOCRIT 33.3 % (35.0-46.0); HEMOGLOBIN 10.3 GM/DL (11.6-15.3); MEAN CELL VOLUME 71.4 FL (80.0-100.0); MEAN CORPUSCULAR HEMOGLOBIN 22.2 PG (27.0-34.0); MEAN CORPUSCULAR HGB CONC 31.1 % (32.0-36.0); MEAN PLATELET VOLUME 8.4 FL (7.0-11.0); PLATELET COUNT 327 TH/MM3 (150-450); RED BLOOD COUNT 4.66 MIL/MM3 (4.00-5.30); WHITE BLOOD COUNT 19.6 TH/MM3 (4.0-11.0)
[2017-08-30] MEDS: ASPIRIN EC 325 MG TABEC PO SCH (09:22)
[2017-08-30] MEDS: POTASSIUM CHLORIDE 10 MEQ CONTROLLED RELEASE TAB PO SCH (09:22)
[2017-08-30] MEDS: SODIUM CHLORIDE 0.9% FLUSH 10 ML FLUSH IV FLUSH SCH ×2 (09:23→20:29)
[2017-08-30] MEDS: FUROSEMIDE 40 MG/4 ML VIAL IVP SCH ×2 (09:23→18:07)
[2017-08-30 09:30] LABS: INTERNATIONAL NORMALIZED RATIO 1.2 RATIO; PROTHROMBIN TIME - PATIENT 11.9 SEC (9.8-11.6)
[2017-08-30] MEDS ORDERED: INFLUENZA VIRUS VACCINE (QUADRIVALENT) 0.5 ML SYR IM ONE (10:00)
[2017-08-30 14:23] LABS: TROPONIN I 0.16 NG/ML (0.02-0.05)
--- NOTE | 2017-08-30 20:06 | MB ---
cc: HERNÁN JIM DATE OF CONSULTATION: 08/30/2017 REASON FOR CONSULTATION: Pulmonary embolism. HISTORY OF PRESENT ILLNESS: Ms. Anthony is a 37-year-old female with known history of congestive heart failure, comes to the emergency room with increasing shortness of breath, bilateral lower extremity edema for several days prior to coming to the emergency room. She did have, as well, pain under the breast bilaterally which is sharp in nature. CT angiogram with evidence of bilateral pulmonary emboli, and the patient is started on anticoagulant therapy. PAST MEDICAL HISTORY: 1. Hypertension. 2. Congestive heart failure. She had a cardiac catheterization May 2017. MEDICATIONS AT HOME: 1. Coreg. 2. Lasix. 3. Progesterone. 4. Potassium. ALLERGIES None known to medication FAMILY HISTORY Positive for diabetes and hypertension, otherwise unremarkable. SOCIAL HISTORY Does not smoke, drinks alcohol socially. Does not use drugs. REVIEW OF SYSTEMS 12-point review of systems as per HPI and past history, otherwise negative. PHYSICAL EXAMINATION: The patient is alert, oriented in no acute distress. HEENT: Exam unremarkable. Eyes without icterus. Neck: Without adenopathy, thyroid enlargement, central trachea. Chest: Few scattered rhonchi bilaterally. Cardiac: PMI distant. S1-S2 audible, no murmur, no rub. Abdomen: Lax, bowel sounds audible. Extremities: No clubbing, cyanosis or edema. Skin: No lymphadenopathy. LABORATORY DATA White count 19,000, hemoglobin 10, hematocrit 30, sodium 142, potassium 3.5, BUN 11, creatinine 1. IMPRESSION 1. Acute pulmonary embolism. 2. Congestive heart failure by history. 3. Hypertension. PLAN The patient will be maintained on anticoagulant therapy. Her white count is elevated, however, likely will be reduced over several days, if not antibiotic therapy on an empiric basis may be considered. The patient is obese with a short neck and history of snoring and sleep disorder, breathing has to be evaluated as well. I do thank you for asking me to partake in Ms. Anthony's care. Hernán Jim MD WWW/ANAM /6:49 PM /7:51 PM
[2017-08-31] VITALS (7 sets, daily range): BP systolic 101–112; BP diastolic 62–74; PULSE 77–110; RESP 16–18; TEMP 97–99.5; O2SAT 95–98
[2017-08-31] MEDS: MORPHINE SULFATE 2 MG/ML INJ IV PUSH PRN ×4 (00:42→23:22)
[2017-08-31] MEDS: HEPARIN-D5W 25,000 U/250 ML 250 ML IV PRN ×2 (04:38→18:07)
[2017-08-31] MEDS: POTASSIUM CHLORIDE 10 MEQ CONTROLLED RELEASE TAB PO SCH (09:13)
[2017-08-31] MEDS: ASPIRIN EC 325 MG TABEC PO SCH (09:13)
[2017-08-31] MEDS: CARVEDILOL 12.5 MG TAB PO SCH ×2 (09:14→20:46)
[2017-08-31] MEDS: FUROSEMIDE 40 MG/4 ML VIAL IVP SCH ×2 (09:14→18:03)
[2017-08-31] MEDS: SODIUM CHLORIDE 0.9% FLUSH 10 ML FLUSH IV FLUSH SCH ×2 (09:15→20:46)
[2017-08-31] MEDS ORDERED: XARE20TA PO (10:59)
[2017-08-31] MEDS ORDERED: ASPI81TA23 PO (10:59)
[2017-08-31] MEDS ORDERED: FURO1TAB60 PO (10:59)
[2017-08-31] MEDS ORDERED: XARE15TA PO (10:59)
[2017-08-31] MEDS ORDERED: POTA10TA2 PO (10:59)
[2017-08-31] MEDS ORDERED: LEVA750T9 PO (10:59)
[2017-08-31 11:31] LABS: AUTOMATED NEUTROPHIL # 11.5 TH/MM3 (1.8-7.7); BASOPHIL # 0.1 TH/MM3 (0-0.2); BASOPHIL % 0.5 % (0.0-2.0); EOSINOPHIL # 0.1 TH/MM3 (0-0.4); EOSINOPHIL % 0.5 % (0.0-4.0); HEMATOCRIT 35.2 % (35.0-46.0); HEMOGLOBIN 10.7 GM/DL (11.6-15.3); LYMPH % 12.7 % (9.0-44.0); LYMPHOCYTE # 1.9 TH/MM3 (1.0-4.8); MEAN CELL VOLUME 71.2 FL (80.0-100.0); MEAN CORPUSCULAR HEMOGLOBIN 21.7 PG (27.0-34.0); MEAN CORPUSCULAR HGB CONC 30.5 % (32.0-36.0); MEAN PLATELET VOLUME 8.7 FL (7.0-11.0); MONO % 7.4 % (0.0-8.0); MONOCYTE # 1.1 TH/MM3 (0-0.9); NEUT % 78.9 % (16.0-70.0); PLATELET COUNT 377 TH/MM3 (150-450); RED BLOOD COUNT 4.94 MIL/MM3 (4.00-5.30); WHITE BLOOD COUNT 14.6 TH/MM3 (4.0-11.0)
[2017-08-31] MEDS: LEVOFLOXACIN 750 MG TAB PO SCH (11:45)
[2017-08-31 11:51] LABS: BICARBONATE 26.4 MEQ/L (21.0-32.0); CALCIUM 8.5 MG/DL (8.5-10.1); CREATININE 1.24 MG/DL (0.50-1.00)
--- NOTE | 2017-08-31 13:08 | EKG ---
Date Performed: 08/30/2017 Time Performed: 07:19:07 PTAGE: 37 years EKG: SINUS TACHYCARDIA POSSIBLE LEFT ATRIAL ENLARGEMENT ABNORMAL RHYTHM ECG PREVIOUS TRACING : 06/06/2017 10.18 DOCTOR: Karlos Manaznares Interpretating Date/Time 08/31/2017 12:58:10
[2017-08-31] MEDS ORDERED: MAGNESIUM HYDROXIDE SUSP 30 ML CUP PO ONE (13:15)
[2017-08-31] MEDS ORDERED: DOCUSATE SODIUM 50 MG/SENNA 8.6 MG TAB PO ONE (13:15)
--- NOTE | 2017-08-31 16:23 | HHI.PR ---
Subjective Remarks ALERT NO SOB Objective Vital Signs Date Time Temp Pulse Resp B/P (MAP) Pulse Ox O2 Delivery O2 Flow Rate FiO2 08/31/17 12:00 98.3 104 16 102/70 (81) 97 08/31/17 09:44 18 08/31/17 08:00 98.6 110 18 101/72 (82) 98 08/31/17 04:45 99.5 106 18 112/74 (87) 95 08/31/17 03:41 106 08/30/17 23:47 108 08/30/17 23:43 99.7 106 18 108/72 (84) 96 08/30/17 20:26 95 Nasal Cannula 2.00 08/30/17 20:04 106 08/30/17 19:35 98.9 106 18 105/73 (84) 95 I/O 08/30/17 08/30/17 08/30/17 08/31/17 08/31/17 08/31/17 07:00 15:00 23:00 07:00 15:00 23:00 Intake Total 360 ml 480 ml 480 ml 610 ml Output Total 300 ml 2600 ml 1100 ml 500 ml Balance 60 ml -2120 ml -620 ml 110 ml Intake Oral 360 ml 480 ml 480 ml 360 ml IV Total 250 ml Output Urine Total 300 ml 2600 ml 1100 ml 500 ml # Voids 1 # Bowel Movements 0 0 0 0 Result Diagram: 08/31/17 1014 08/31/17 1045 Objective Remarks GENERAL: SKIN: Warm and dry. HEAD: Atraumatic. Normocephalic. EYES: Pupils equal and round. No scleral icterus. No injection or drainage. ENT: No nasal bleeding or discharge. Mucous membranes pink and moist. NECK: Trachea midline. No JVD. CARDIOVASCULAR: Regular rate and rhythm. RESPIRATORY: No accessory muscle use. Clear to auscultation. Breath sounds equal bilaterally. GASTROINTESTINAL: Abdomen soft, non-tender, nondistended. Hepatic and splenic margins not palpable. MUSCULOSKELETAL: Extremities without clubbing, cyanosis, or edema. No obvious deformities. NEUROLOGICAL: Awake and alert. No obvious cranial nerve deficits. Motor grossly within normal limits. Five out of 5 muscle strength in the arms and legs. Normal speech. PSYCHIATRIC: Appropriate mood and affect; insight and judgment normal. Assessment and Plan Assessment and Plan ACUTE PE HTN CHF PLAN ANTICOAGULATION O2 IF NEEDED Hernán Jim MD Aug 31, 2017 16:23
--- NOTE | 2017-08-31 17:26 | HHI.PR ---
Subjective Remarks Patient seen this morning around 9 AM. Says she is feeling all right, still fatigued with walking around. She denies any chest pain. Still with bilateral lower extremity edema. Objective Vital Signs Date Time Temp Pulse Resp B/P (MAP) Pulse Ox O2 Delivery O2 Flow Rate FiO2 08/31/17 12:00 98.3 104 16 102/70 (81) 97 08/31/17 09:44 18 08/31/17 08:00 98.6 110 18 101/72 (82) 98 08/31/17 04:45 99.5 106 18 112/74 (87) 95 08/31/17 03:41 106 08/30/17 23:47 108 08/30/17 23:43 99.7 106 18 108/72 (84) 96 08/30/17 20:26 95 Nasal Cannula 2.00 08/30/17 20:04 106 08/30/17 19:35 98.9 106 18 105/73 (84) 95 I/O 08/30/17 08/30/17 08/30/17 08/31/17 08/31/17 08/31/17 06:59 14:59 22:59 06:59 14:59 22:59 Intake Total 360 ml 480 ml 480 ml 610 ml Output Total 300 ml 2600 ml 1100 ml 500 ml Balance 60 ml -2120 ml -620 ml 110 ml Intake Oral 360 ml 480 ml 480 ml 360 ml IV Total 250 ml Output Urine Total 300 ml 2600 ml 1100 ml 500 ml # Voids 1 # Bowel Movements 0 0 0 0 Result Diagram: 08/31/17 1014 08/31/17 1045 Objective Remarks GENERAL: Patient sitting up in bed. Appears comfortable. SKIN: Warm and dry. HEAD: Normocephalic. EYES: No scleral icterus. No injection or drainage. NECK: Supple, trachea midline. Difficult evaluation of JVD secondary to body habitus. CARDIOVASCULAR: Regular rate and rhythm without murmurs, gallops, or rubs. RESPIRATORY: Breath sounds equal bilaterally. No accessory muscle use. GASTROINTESTINAL: Abdomen soft, non-tender, nondistended. MUSCULOSKELETAL: No cyanosis. 2+ bilateral lower extremity edema. No erythema. BACK: Nontender without obvious deformity. No CVA tenderness. A/P Assessment and Plan 08/31. 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 She has not had an AICD. Given new bilateral pulmonary embolism with pulmonary infarct, We will consult cardiology for further evaluation for AICD placement and clearance for discharge. Continue heparin drip for now. Assessment/plan: //CHF exacerbation Chest x-ray significant for cardiomegaly unchanged from previous without pulmonary vascular congestion, personally reviewed BNP 704 IV Lasix Monitor for signs of volume overload, respiratory distress = 08/31. Continues with bilateral lower extremity edema. We'll check BNP. Continue Lasix. Check echocardiogram. Creatinine is slightly worse 1.2 which is around previous baseline. We'll continue to monitor. //Chest pain/elevated troponin EKG shows sinus tachycardia without ST segment elevations or depressions, personally reviewed Initial troponin 0.17, baseline for the patient Given patient is having chest pain, obtain serial troponin/EKGs = 08/31. Patient with pleuritic right-sided chest pain. Troponins below baseline. Previous catheter without coronary artery disease. Cardiology will be consulted for CHF exacerbation. // Hypertension Continue home medications //Right Lower lobe community-acquired pneumonia. We'll start Levaquin as per pulmonary recommendations. Appreciate assistance. FEN Heart healthy diet Electrolytes: monitor and replete prn Discharge Planning Patient with history of severe cardiomyopathy, atrial myxoma, now with new bilateral pulmonary hypertension with pulmonary infarct. = Hopefully can go home on multiple anticoagulant. Pending cardiology clearance. Saleem John MD Aug 31, 2017 17:26
[2017-09-01] VITALS (7 sets, daily range): BP systolic 92–125; BP diastolic 63–89; PULSE 89–116; RESP 18–24; TEMP 97.6–98.5; O2SAT 97–99
[2017-09-01] MEDS: HEPARIN-D5W 25,000 U/250 ML 250 ML IV PRN ×2 (07:43→18:43)
[2017-09-01] MEDS: ASPIRIN EC 325 MG TABEC PO SCH (07:44)
[2017-09-01] MEDS: POTASSIUM CHLORIDE 10 MEQ CONTROLLED RELEASE TAB PO SCH (07:44)
[2017-09-01] MEDS: LEVOFLOXACIN 750 MG TAB PO SCH (07:44)
[2017-09-01] MEDS: SODIUM CHLORIDE 0.9% FLUSH 10 ML FLUSH IV FLUSH SCH ×2 (07:46→22:38)
[2017-09-01] MEDS: FUROSEMIDE 40 MG/4 ML VIAL IVP SCH (07:46)
[2017-09-01] MEDS: CARVEDILOL 12.5 MG TAB PO SCH ×2 (07:46→22:38)
--- NOTE | 2017-09-01 07:48 | MB ---
cc: DIMITRI ACUÑA DO DATE OF CONSULTATION August 31, 2017 REASON FOR CONSULTATION Cardiomyopathy. Consideration of ICD. HISTORY OF PRESENT ILLNESS Brandy Anthony is a pleasant 37-year-old female who previously was here with congestive heart failure and presented to [facility] on November 26, 2017, due to increasing shortness of breath and chest pain. During the patient's last hospitalization she was found to have an ejection fraction of around 20% as well as possible myxoma. While in the hospital she was seen by Dr. Lira for consideration of atrial myxoma removal. She has since been discharged and was following up with a sales and retail management recruiter in [place] who was attempting to get her heart rate and blood pressure controlled and then working towards what sounds like repeating an echo to see if she needs a possible ICD. Over the past week she has noticed swelling in her lower extremities, specifically the left lower extremity. She was unable to put her shoes on. She had an ultrasound done of her lower extremities which showed normal examination. She continued to get more short of breath and so she presented to the emergency room at [facility] once again due to shortness of breath. After being transferred to [facility] she underwent a CT scan which showed filling defects consistent with segmental and subsegmental pulmonary artery bilateral pulmonary embolus. In seeing her she states that she has been feeling somewhat better and her shortness of breath has decreased. The chest pain has been with deep breaths or moving in certain ways. PAST MEDICAL HISTORY 1. Cardiomyopathy with a chronic systolic heart failure. 2. Hypertension. 3. Atrial myxoma. PAST SURGICAL HISTORY Cardiac catheterization (June 10, 2017) with 30% LAD in the midportion and otherwise mild luminal irregularities. ALLERGIES No known drug allergies. MEDICATIONS 1. Coreg 12.5 mg b.i.d. 2. Aspirin 325 mg daily. 3. Lasix 40 mg daily. 4. Progesterone 200 mg every night. FAMILY HISTORY Mother has a history of diabetes mellitus. SOCIAL HISTORY The patient occasionally drinks alcohol. Denies tobacco or illicit drug abuse. REVIEW OF SYSTEMS 14-systems were reviewed including osteopathic pertinent positives and negatives above, otherwise negative. PHYSICAL EXAMINATION VITAL SIGNS: Temperature 98.3, heart rate 104, blood pressure 102/70, respirations 16, pulse ox 97% on 2 liters. IN GENERAL: The patient appears well, in no acute distress. Alert, awake and oriented x3. Extraocular muscles intact. Mucous membranes moist. NECK: Supple. No JVD at 45 degrees. No carotid bruits heard bilaterally. Carotid upstroke is brisk in nature. HEART: Mildly tachycardiac. Positive first and second heart sounds with no noted murmurs, gallops or rubs. LUNGS: Decreased breath sounds bilaterally but no overt wheezes, rales or rhonchi. ABDOMEN: Obese, nontender, nondistended. No organomegaly noted. EXTREMITIES: 1+ pitting edema bilaterally. NEUROLOGIC: No focal deficits. SKIN: Warm, dry and intact. OSTEOPATHIC: Mild lordosis. No kyphoscoliosis or paraspinal tender points. LABORATORY FINDINGS Hemoglobin 10.7, hematocrit 35.2, platelets 377. Potassium 3.5, BUN 12, creatinine 1.24. Troponin 0.18. BNP 212. ELECTROCARDIOGRAM (August 30, 2017, at 07:19) Sinus tachycardia, possible left atrial marginal. IMPRESSIONS 1. Bilateral segmental and subsegmental pulmonary embolus. 2. Tachycardia most likely due to pulmonary embolus. 3. History of cardiomyopathy with an ejection fraction of 20%. 4. History of left atrial myxoma. 5. Chest pain secondary to pulmonary embolus. 6. Elevated troponin secondary to pulmonary embolus. 7. Nonobstructive coronary artery disease by cardiac catheterization as above. RECOMMENDATIONS 1. Ms. Anthony presented with shortness of breath and was found to have bilateral pulmonary embolus. She has been started on heparin with a plan to place on a NOAC by the primary team as well as Pulmonology. 2. We will obtain an echo to look at her overall right-sided pressure for strain, although she does not appear at this time from a clinical standpoint to have concern for shock. 3. As far as her cardiomyopathy goes, she overall is not a candidate for AICD therapy at this time as she has not been on optimal medications. She appears to be following with a sales and retail management recruiter from [place] who is attempting to control her heart rates which overall I think is a good idea before consideration of an AICD. 4. As far as her atrial myxoma, she was seen by Dr. Lira for consideration of removal. She will follow up with her sales and retail management recruiter upon discharge in [place] for further determination on possible removal, but this will most likely have to be placed on hold until after she has been treated for pulmonary embolus with anticoagulation. 5. No further cardiovascular workup at this time. Thank you for allowing me to see Brandy Anthony. If you have any questions, please do not hesitate to call. Dimitri Acuña DO VGP/SSB /10:23 PM /7:17 AM
[2017-09-01 08:12] LABS: AUTOMATED NEUTROPHIL # 9.3 TH/MM3 (1.8-7.7); BASOPHIL # 0.1 TH/MM3 (0-0.2); BASOPHIL % 0.6 % (0.0-2.0); EOSINOPHIL # 0.1 TH/MM3 (0-0.4); HEMATOCRIT 34.5 % (35.0-46.0); HEMOGLOBIN 10.6 GM/DL (11.6-15.3); LYMPH % 16.2 % (9.0-44.0); LYMPHOCYTE # 2.1 TH/MM3 (1.0-4.8); MEAN CELL VOLUME 71.3 FL (80.0-100.0); MEAN CORPUSCULAR HEMOGLOBIN 21.9 PG (27.0-34.0); MEAN CORPUSCULAR HGB CONC 30.7 % (32.0-36.0); MEAN PLATELET VOLUME 8.7 FL (7.0-11.0); MONO % 10.4 % (0.0-8.0); MONOCYTE # 1.4 TH/MM3 (0-0.9); NEUT % 71.8 % (16.0-70.0); PLATELET COUNT 380 TH/MM3 (150-450); RED BLOOD COUNT 4.83 MIL/MM3 (4.00-5.30); RED CELL DISTRIBUTION WIDTH 19.4 % (11.6-17.2)
[2017-09-01 08:28] LABS: ALBUMIN 2.4 GM/DL (3.4-5.0); BICARBONATE 28.9 MEQ/L (21.0-32.0); CALCIUM 8.7 MG/DL (8.5-10.1); CREATININE 1.04 MG/DL (0.50-1.00); MAGNESIUM 2.1 MG/DL (1.5-2.5); PHOSPHORUS 4.3 MG/DL (2.5-4.9)
[2017-09-01] MEDS ORDERED: RIVAROXABAN 15 MG TAB PO SCH (09:00)
--- NOTE | 2017-09-01 12:34 | PD.CARD.PN ---
Subjective Subjective Remarks No events overnight No chest pain SOB better Objective Medications Current Medications Medications (Trade) Dose Ordered Sig/Kurt Route Start Time Stop Time Status Last Admin (NS Flush) 2 ml BID IV FLUSH 08/30/17 09:00 09/01/17 07:46 (NS Flush) 2 ml UNSCH PRN IV FLUSH 08/29/17 23:45 (Lasix Inj) 40 mg BID@09,18 IVP 08/30/17 09:00 09/01/17 07:46 (Ecotrin Ec) 325 mg DAILY PO 08/30/17 09:00 09/01/17 07:44 (Coreg) 12.5 mg BID PO 08/30/17 00:30 09/01/17 07:46 (KCl) 10 meq DAILY PO 08/30/17 09:00 09/01/17 07:44 (Morphine Inj) 2 mg Q3H PRN IV PUSH 08/30/17 04:45 08/31/17 23:22 (Levaquin) 750 mg DAILY PO 08/31/17 10:00 09/01/17 07:44 Heparin Sodium/ Dextrose 250 ml @ 18 mls/hr TITRATE PRN IV 09/01/17 11:00 UNV Vital Signs / I&O Vital Signs Date Time Temp Pulse Resp B/P (MAP) Pulse Ox O2 Delivery O2 Flow Rate FiO2 09/01/17 12:00 97.6 99 19 94/68 (77) 99 09/01/17 08:00 99 09/01/17 08:00 98.3 96 19 92/69 (77) 97 09/01/17 04:00 98.1 106 18 106/63 (77) 99 08/31/17 23:21 98.2 103 18 112/73 (86) 96 08/31/17 19:13 97.8 102 18 106/67 (80) 97 08/31/17 18:14 18 08/31/17 16:00 97.0 100 16 107/62 (77) 98 I/O 08/31/17 08/31/17 08/31/17 09/01/17 09/01/17 09/01/17 07:00 15:00 23:00 07:00 15:00 23:00 Intake Total 610 ml 1080 ml 360 ml Output Total 500 ml 3350 ml 1750 ml Balance 110 ml -2270 ml -1390 ml Intake Oral 360 ml 1080 ml 360 ml IV Total 250 ml Output Urine Total 500 ml 3350 ml 1750 ml # Bowel Movements 0 0 1 Physical Exam GENERAL: NAD, AAOx3 SKIN: Warm and dry. HEAD: Atraumatic. Normocephalic. EYES: Pupils equal and round. No scleral icterus. No injection or drainage. ENT: No nasal bleeding or discharge. Mucous membranes pink and moist. NECK: Trachea midline. No JVD. CARDIOVASCULAR: Regular rate and rhythm. RESPIRATORY: No accessory muscle use. Clear to auscultation. Breath sounds equal bilaterally. GASTROINTESTINAL: Abdomen soft, non-tender, nondistended. Hepatic and splenic margins not palpable. MUSCULOSKELETAL: Extremities without clubbing, cyanosis, or edema. No obvious deformities. NEUROLOGICAL: Awake and alert. No obvious cranial nerve deficits. Motor grossly within normal limits. Five out of 5 muscle strength in the arms and legs. Normal speech. PSYCHIATRIC: Appropriate mood and affect; insight and judgment normal. Laboratory Laboratory Tests Test 09/01/17 06:45 09/01/17 11:15 White Blood Count 13.0 TH/MM3 Red Blood Count 4.83 MIL/MM3 Hemoglobin 10.6 GM/DL Hematocrit 34.5 % Mean Corpuscular Volume 71.3 FL Mean Corpuscular Hemoglobin 21.9 PG Mean Corpuscular Hemoglobin Concent 30.7 % Red Cell Distribution Width 19.4 % Platelet Count 380 TH/MM3 Mean Platelet Volume 8.7 FL Neutrophils (%) (Auto) 71.8 % Lymphocytes (%) (Auto) 16.2 % Monocytes (%) (Auto) 10.4 % Eosinophils (%) (Auto) 1.0 % Basophils (%) (Auto) 0.6 % Neutrophils # (Auto) 9.3 TH/MM3 Lymphocytes # (Auto) 2.1 TH/MM3 Monocytes # (Auto) 1.4 TH/MM3 Eosinophils # (Auto) 0.1 TH/MM3 Basophils # (Auto) 0.1 TH/MM3 CBC Comment DIFF FINAL Differential Comment Activated Partial Thromboplast Time 57.6 SEC 49.2 SEC Blood Urea Nitrogen 12 MG/DL Creatinine 1.04 MG/DL Random Glucose 140 MG/DL Albumin 2.4 GM/DL Calcium Level 8.7 MG/DL Phosphorus Level 4.3 MG/DL Magnesium Level 2.1 MG/DL Sodium Level 140 MEQ/L Potassium Level 3.4 MEQ/L Chloride Level 104 MEQ/L Carbon Dioxide Level 28.9 MEQ/L Anion Gap 7 MEQ/L Estimat Glomerular Filtration Rate 72 ML/MIN Assessment and Plan Problem List: (1) Pulmonary embolism ICD Codes: I26.99 - Other pulmonary embolism without acute cor pulmonale (2) Elevated troponin ICD Codes: R74.8 - Abnormal levels of other serum enzymes (3) Microcytic anemia ICD Codes: D50.9 - Iron deficiency anemia, unspecified (4) 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 neoplasm of heart (5) Atypical chest pain ICD Codes: R07.89 - Other chest pain (6) HTN (hypertension) ICD Codes: I10 - Essential (primary) hypertension Assessment and Plan 1) Chest pain/elevated trop/SOB secondary to pulmonary embolism Anti-coagulation per primary team/pulmonary 2) 2D echo pending to look over right sided strain But overall clinically does not appear that way 3) Cardiomyopathy, NICM, EF 20% Not a candidate for AICD therapy at this time Con't Coreg Discussed starting an CAMRON-I but blood pressure borderline at this time Follow up with her Sales Merchandise Associate in [place] for further considerations 4) Atrial myxoma Follow up with her Sales Merchandise Associate Procedure will most likely need to be after she completes her course of anti- coagulation 5) No further cardiovascular work up necessary at this time Dimitri Wood DO Sep 01, 2017 12:34
--- NOTE | 2017-09-01 13:54 | HHI.PR ---
Subjective Remarks Patient seen this morning around 9 AM. Says she is feeling all right, still fatigued with walking around. She denies any chest pain. Still with bilateral lower extremity edema. Objective Vital Signs Date Time Temp Pulse Resp B/P (MAP) Pulse Ox O2 Delivery O2 Flow Rate FiO2 09/01/17 12:00 97.6 99 19 94/68 (77) 99 09/01/17 08:00 99 09/01/17 08:00 98.3 96 19 92/69 (77) 97 09/01/17 04:00 98.1 106 18 106/63 (77) 99 08/31/17 23:21 98.2 103 18 112/73 (86) 96 08/31/17 19:13 97.8 102 18 106/67 (80) 97 08/31/17 18:14 18 08/31/17 16:00 97.0 100 16 107/62 (77) 98 I/O 08/31/17 08/31/17 08/31/17 09/01/17 09/01/17 09/01/17 07:00 15:00 23:00 07:00 15:00 23:00 Intake Total 610 ml 1080 ml 360 ml Output Total 500 ml 3350 ml 1750 ml Balance 110 ml -2270 ml -1390 ml Intake Oral 360 ml 1080 ml 360 ml IV Total 250 ml Output Urine Total 500 ml 3350 ml 1750 ml # Bowel Movements 0 0 1 Result Diagram: 09/01/17 0645 09/01/17 0645 Objective Remarks GENERAL: Patient sitting up in bed. Appears comfortable. Exam unchanged. Patient shows me pictures of her hemoptysis. SKIN: Warm and dry. HEAD: Normocephalic. EYES: No scleral icterus. No injection or drainage. NECK: Supple, trachea midline. Difficult evaluation of JVD secondary to body habitus. CARDIOVASCULAR: Regular rate and rhythm without murmurs, gallops, or rubs. RESPIRATORY: Breath sounds equal bilaterally. No accessory muscle use. GASTROINTESTINAL: Abdomen soft, non-tender, nondistended. MUSCULOSKELETAL: No cyanosis. 2+ bilateral lower extremity edema. No erythema. BACK: Nontender without obvious deformity. No CVA tenderness. A/P Assessment and Plan 09/01. Had plan to discharge patient home today. I have discussed with cardiology, and she will need to follow-up with cardiology as outpatient. No plans for AICD at this time. Unfortunately we'll need to hold discharge Due to new hemoptysis starting yesterday. I discussed with Dr. Jim of pulmonology, and will start patient back on heparin drip, hold off on starting anticoagulant by mouth at this time. Continue to monitor. 08/31. 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 She has not had an AICD. Given new bilateral pulmonary embolism with pulmonary infarct, We will consult cardiology for further evaluation for AICD placement and clearance for discharge. Continue heparin drip for now. Assessment/plan: //CHF exacerbation Chest x-ray significant for cardiomegaly unchanged from previous without pulmonary vascular congestion, personally reviewed BNP 704 IV Lasix Monitor for signs of volume overload, respiratory distress = 08/31. Continues with bilateral lower extremity edema. We'll check BNP. Continue Lasix. Check echocardiogram. Creatinine is slightly worse 1.2 which is around previous baseline. We'll continue to monitor. = 09/01. Echocardiogram still pending. Continue Lasix. BNP in the 200s. Switched to by mouth Lasix. Discussed With cardiology. //Chest pain/elevated troponin EKG shows sinus tachycardia without ST segment elevations or depressions, personally reviewed Initial troponin 0.17, baseline for the patient Given patient is having chest pain, obtain serial troponin/EKGs = 08/31. Patient with pleuritic right-sided chest pain. Troponins below baseline. Previous catheter without coronary artery disease. Cardiology will be consulted for CHF exacerbation. = 09/01. Discussed with cardiology. No changes in management. Follow with program attendant as outpatient. // Hypertension Continue home medications //Right Lower lobe community-acquired pneumonia. We'll start Levaquin as per pulmonary recommendations. Appreciate assistance. = . Continue Levaquin. FEN Heart healthy diet Electrolytes: monitor and replete prn Discharge Planning Plan is to send patient home on novel anticoagulant. Unfortunately patient developed hemoptysis starting 08/31. We'll place back on heparin drip. Pending pulmonology clearance. = Patient will need a follow-up with cardiology as outpatient. Saleem John MD Sep 01, 2017 13:54
[2017-09-01] MEDS ORDERED: POTASSIUM CHLORIDE 20 MEQ CONTROLLED RELEASE TAB PO ONE (14:40)
[2017-09-01 15:34] LABS: % SATURATION IRON PROFILE 5.5 % (20-50); IRON (FE) 18 MCG/DL (50-170); TOTAL IRON BINDING CAPACITY 329 MCG/DL (250-450)
[2017-09-01 15:36] LABS: FERRITIN 54 NG/ML (8-252)
--- NOTE | 2017-09-01 16:52 | HHI.PR ---
Subjective Remarks ALERT NO SOB Objective Vital Signs Date Time Temp Pulse Resp B/P (MAP) Pulse Ox O2 Delivery O2 Flow Rate FiO2 09/01/17 16:10 97.6 97 24 107/71 (83) 99 09/01/17 12:00 97.6 99 19 94/68 (77) 99 09/01/17 08:00 99 09/01/17 08:00 98.3 96 19 92/69 (77) 97 09/01/17 04:00 98.1 106 18 106/63 (77) 99 08/31/17 23:21 98.2 103 18 112/73 (86) 96 08/31/17 19:13 97.8 102 18 106/67 (80) 97 08/31/17 18:14 18 I/O 08/31/17 08/31/17 08/31/17 09/01/17 09/01/17 09/01/17 07:00 15:00 23:00 07:00 15:00 23:00 Intake Total 610 ml 1080 ml 360 ml 480 ml Output Total 500 ml 3350 ml 1750 ml 2300 ml Balance 110 ml -2270 ml -1390 ml -1820 ml Intake Oral 360 ml 1080 ml 360 ml 480 ml IV Total 250 ml Output Urine Total 500 ml 3350 ml 1750 ml 2300 ml # Bowel Movements 0 0 1 0 Result Diagram: 09/01/1745 09/01/1745 Objective Remarks GENERAL: SKIN: Warm and dry. HEAD: Atraumatic. Normocephalic. EYES: Pupils equal and round. No scleral icterus. No injection or drainage. ENT: No nasal bleeding or discharge. Mucous membranes pink and moist. NECK: Trachea midline. No JVD. CARDIOVASCULAR: Regular rate and rhythm. RESPIRATORY: No accessory muscle use. Clear to auscultation. Breath sounds equal bilaterally. GASTROINTESTINAL: Abdomen soft, non-tender, nondistended. Hepatic and splenic margins not palpable. MUSCULOSKELETAL: Extremities without clubbing, cyanosis, or edema. No obvious deformities. NEUROLOGICAL: Awake and alert. No obvious cranial nerve deficits. Motor grossly within normal limits. Five out of 5 muscle strength in the arms and legs. Normal speech. PSYCHIATRIC: Appropriate mood and affect; insight and judgment normal. Assessment and Plan Assessment and Plan ACUTE PE HTN CHF MINOR HEMOPTYSIS PLAN ANTICOAGULATION O2 IF NEEDED WATCH FOR ANY FURTHUR HEMOPTYSIS Hernán,Hernán Wadie MD Sep 01, 2017 16:52
[2017-09-01] MEDS: FUROSEMIDE 40 MG TAB PO SCH (17:23)
--- NOTE | 2017-09-01 17:44 | ECHRPT ---
Indication: HEART FAILURE CONCLUSIONS The left ventricular systolic function is severely reduced with an estimated ejection fraction in th e range of 20-25%. Mildly dilated left ventricle. Wall thickness is normal. There is global left ventricular dysfunction. Mild mitral valve regurgitation. There is trace tricuspid valve regurgitation. The estimated pulmonary arterial pressure is 30.6 mmHg. Mild pulmonary valve regurgitation. BP: 106 / 63 HR: 106 Rhythm: Sinus MEASUREMENTS (Male / Female) Normal Values Technical Quality:Good 2D ECHO LV Diastolic Diameter PLAX 6.4 cm 4.2 - 5.9 / 3.9 - 5.3 cm LV Systolic Diameter PLAX 5.6 cm IVS Diastolic Thickness 1.1 cm 0.6 - 1.0 / 0.6 - 0.9 cm LVPW Diastolic Thickness 1.1 cm 0.6 - 1.0 / 0.6 - 0.9 cm LV Relative Wall Thickness 0.3 RV Internal Dim ED PLAX 3.2 cm LVOT Diameter 1.8 cm LA Systolic Diameter LX 4.0 cm 3.0 - 4.0 / 2.7 - 3.8 cm LV Ejection Fraction MOD 4C 28.0 % LV Cardiac Index MOD 4C 2489.9 cm/minm LV Ejection Fraction 4C AL 27.7 % LV Cardiac Index 4C AL 2579.1 cm/minm M-MODE Aortic Root Diameter MM 3.0 cm LA Systolic Diameter MM 3.8 cm LA Ao Ratio MM 1.3 AV Cusp Separation MM 2.4 cm DOPPLER AV Peak Velocity 113.0 cm/s AV Peak Gradient 5.1 mmHg LVOT Peak Velocity 91.3 cm/s LVOT Peak Gradient 3.3 mmHg AV Area Cont Eq pk 2.1 cm LV E' Lateral Velocity 7.2 cm/s LV E' Septal Velocity 3.1 cm/s TR Peak Velocity 227.0 cm/s TR Peak Gradient 20.6 mmHg Right Atrial Pressure 10.0 mmHg Pulmonary Artery Systolic Pressu 30.6 mmHg Right Ventricular Systolic Press 30.6 mmHg PV Peak Velocity 114.0 cm/s PV Peak Gradient 5.2 mmHg FINDINGS LEFT VENTRICLE The left ventricular systolic function is severely reduced with an estimated ejection fraction in th e range of 20-25%. Mildly dilated left ventricle. Wall thickness is normal. There is global left ventricular dysfunction. RIGHT VENTRICLE Normal right ventricular size and systolic function. LEFT ATRIUM The left atrial size is normal. RIGHT ATRIUM The right atrial size is normal. ATRIAL SEPTUM Normal atrial septal thickness without atrial level shunting by limited color doppler interrogation. AORTA The aortic root and proximal ascending aorta are normal in size on limited imaging. MITRAL VALVE Structurally normal mitral valve. Mild mitral valve regurgitation. AORTIC VALVE Trileaflet aortic valve. No aortic valve stenosis or regurgitation. TRICUSPID VALVE Structurally normal tricuspid valve. There is trace tricuspid valve regurgitation. The estimated pulmonary arterial pressure is 30.6 mmHg. PULMONARY VALVE Mild pulmonary valve regurgitation. VESSELS The inferior vena cava is normal in size. PERICARDIUM No pericardial effusion. Karlos Manzanares MD, FACC (Electronically Signed) Final Date:01 September 2017 17:43
[2017-09-01 22:15] LABS: HEMOGLOBIN A1C 7.2 % (4.3-6.0)
[2017-09-02 00:10] VITALS: BP 110/87; PULSE 100; RESP 19; TEMP 98.3; O2SAT 98
[2017-09-02 04:10] VITALS: BP 111/75; PULSE 94; RESP 19; TEMP 98.2; O2SAT 98
[2017-09-02] MEDS: HEPARIN-D5W 25,000 U/250 ML 250 ML IV PRN (06:35)
[2017-09-02] MEDS: MORPHINE SULFATE 2 MG/ML INJ IV PUSH PRN (06:39)
[2017-09-02 07:02] LABS: AUTOMATED NEUTROPHIL # 6.5 TH/MM3 (1.8-7.7); BASOPHIL # 0.1 TH/MM3 (0-0.2); BASOPHIL % 0.7 % (0.0-2.0); EOSINOPHIL # 0.1 TH/MM3 (0-0.4); EOSINOPHIL % 1.4 % (0.0-4.0); HEMATOCRIT 33.6 % (35.0-46.0); HEMOGLOBIN 10.4 GM/DL (11.6-15.3); LYMPH % 23.1 % (9.0-44.0); LYMPHOCYTE # 2.4 TH/MM3 (1.0-4.8); MEAN CELL VOLUME 71.4 FL (80.0-100.0); MEAN CORPUSCULAR HEMOGLOBIN 22.2 PG (27.0-34.0); MEAN PLATELET VOLUME 8.8 FL (7.0-11.0); MONO % 10.9 % (0.0-8.0); MONOCYTE # 1.1 TH/MM3 (0-0.9); NEUT % 63.9 % (16.0-70.0); PLATELET COUNT 369 TH/MM3 (150-450); RED CELL DISTRIBUTION WIDTH 19.5 % (11.6-17.2); WHITE BLOOD COUNT 10.2 TH/MM3 (4.0-11.0)
[2017-09-02 07:19] LABS: ALBUMIN 2.2 GM/DL (3.4-5.0); BICARBONATE 29.2 MEQ/L (21.0-32.0); CALCIUM 8.4 MG/DL (8.5-10.1); CREATININE 1.05 MG/DL (0.50-1.00); PHOSPHORUS 4.1 MG/DL (2.5-4.9)
[2017-09-02 07:50] VITALS: BP 107/58; PULSE 99; RESP 18; TEMP 97.5; O2SAT 97
[2017-09-02] MEDS: CARVEDILOL 12.5 MG TAB PO SCH (08:56)
[2017-09-02] MEDS: POTASSIUM CHLORIDE 10 MEQ CONTROLLED RELEASE TAB PO SCH (08:56)
[2017-09-02] MEDS: ASPIRIN EC 325 MG TABEC PO SCH (08:56)
[2017-09-02] MEDS: FUROSEMIDE 40 MG TAB PO SCH (08:56)
[2017-09-02] MEDS: LEVOFLOXACIN 750 MG TAB PO SCH (08:56)
[2017-09-02] MEDS: SODIUM CHLORIDE 0.9% FLUSH 10 ML FLUSH IV FLUSH SCH (08:58)
[2017-09-02] MEDS ORDERED: RIVAROXABAN 15 MG TAB PO SCH (10:00)
--- NOTE | 2017-09-02 11:17 | HHI.PR ---
Subjective Remarks Patient says she is feeling great. Shortness of breath has resolved. No further hemoptysis. Would like to go home. Objective Vital Signs Date Time Temp Pulse Resp B/P (MAP) Pulse Ox O2 Delivery O2 Flow Rate FiO2 09/02/17 07:50 97.5 99 18 107/58 (74) 97 09/02/17 04:10 98.2 94 19 111/75 (87) 98 09/02/17 00:10 98.3 100 19 110/87 (95) 98 09/01/17 20:15 98.5 101 20 125/78 (94) 99 09/01/17 19:00 98.5 100 20 123/89 (100) 98 09/01/17 16:10 97.6 97 24 107/71 (83) 99 09/01/17 16:00 116 09/01/17 12:00 89 09/01/17 12:00 97.6 99 19 94/68 (77) 99 I/O 09/01/17 09/01/17 09/01/17 09/02/17 09/02/17 09/02/17 07:00 15:00 23:00 07:00 15:00 23:00 Intake Total 360 ml 480 ml 480 ml 240 ml Output Total 1750 ml 2300 ml 700 ml 600 ml Balance -1390 ml -1820 ml -220 ml -360 ml Intake Oral 360 ml 480 ml 480 ml 240 ml Output Urine Total 1750 ml 2300 ml 700 ml 600 ml # Bowel Movements 1 0 0 0 Result Diagram: 09/02/17 0500 09/02/17 0500 Objective Remarks GENERAL: Patient sitting up in bed. Appears comfortable. SKIN: Warm and dry. HEAD: Normocephalic. EYES: No scleral icterus. No injection or drainage. NECK: Supple, trachea midline. Difficult evaluation of JVD secondary to body habitus. CARDIOVASCULAR: Regular rate and rhythm without murmurs, gallops, or rubs. RESPIRATORY: Breath sounds equal bilaterally. No accessory muscle use. GASTROINTESTINAL: Abdomen soft, non-tender, nondistended. MUSCULOSKELETAL: No cyanosis. 1+ bilateral lower extremity edema. No erythema. BACK: Nontender without obvious deformity. No CVA tenderness. A/P Assessment and Plan 09/02. No further hemoptysis. Stop heparin drip started novel anticoagulant. Discussed patient's A1c of 7.2, diagnosis of diabetes. Discussed diabetic diet and lifestyle modifications. Advised leisurely walking and advised against "power" walking, machines, or exercise classes. She conveys understanding. Follow-up with cardiology, pulmonology as outpatient. 09/01. Had plan to discharge patient home today. I have discussed with cardiology, and she will need to follow-up with cardiology as outpatient. No plans for AICD at this time. Unfortunately we'll need to hold discharge Due to new hemoptysis starting yesterday. I discussed with Dr. Jim of pulmonology, and will start patient back on heparin drip, hold off on starting anticoagulant by mouth at this time. Continue to monitor. 08/31. 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 She has not had an AICD. Given new bilateral pulmonary embolism with pulmonary infarct, We will consult cardiology for further evaluation for AICD placement and clearance for discharge. Continue heparin drip for now. Assessment/plan: //CHF exacerbation Chest x-ray significant for cardiomegaly unchanged from previous without pulmonary vascular congestion, personally reviewed BNP 704 IV Lasix Monitor for signs of volume overload, respiratory distress = 08/31. Continues with bilateral lower extremity edema. We'll check BNP. Continue Lasix. Check echocardiogram. Creatinine is slightly worse 1.2 which is around previous baseline. We'll continue to monitor. = 09/01. Echocardiogram still pending. Continue Lasix. BNP in the 200s. Switched to by mouth Lasix. Discussed With cardiology. = 09/02. Echocardiogram with slightly improved ejection fraction 2024 percent. No other changes. Discharge home, follow-up with cardiology. //Chest pain/elevated troponin EKG shows sinus tachycardia without ST segment elevations or depressions, personally reviewed Initial troponin 0.17, baseline for the patient Given patient is having chest pain, obtain serial troponin/EKGs = 08/31. Patient with pleuritic right-sided chest pain. Troponins below baseline. Previous catheter without coronary artery disease. Cardiology will be consulted for CHF exacerbation. = 09/01. Discussed with cardiology. No changes in management. Follow with special equipment technician as outpatient. = 09/02. Echocardiogram with EF 20-25%. Cardiology as outpatient. // Hypertension Continue home medications //Right Lower lobe community-acquired pneumonia. We'll start Levaquin as per pulmonary recommendations. Appreciate assistance. = . Continue Levaquin to complete treatment course. FEN Heart healthy diet Electrolytes: monitor and replete prn Discharge Planning No further hemoptysis. Plan is to send patient home on novel anticoagulant. = Patient will need a follow-up with cardiology as outpatient. Saleem John MD Sep 02, 2017 11:17
--- NOTE | 2017-09-02 11:24 | HHI.DS ---
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 The patient also complains of bilateral lower extremity edema that began this weekend. She states she has been unable to put on her shoes. She had associated shortness of breath and chest pain that she describes as underneath her breasts bilaterally and sharp. Worse with inspiration. She endorses a dry cough. Shortness of breath is worse with activity. She denies fever/chills. Denies nausea/vomiting/diarrhea. CBC/BMP: 09/02/17 0500 09/02/17 0500 Significant Findings Laboratory Tests Test 08/30/17 13:32 08/30/17 20:03 08/31/17 04:19 08/31/17 10:14 Activated Partial Thromboplast Time 45.7 SEC (24.3-30.1) 47.9 SEC (24.3-30.1) 55.5 SEC (24.3-30.1) Troponin I 0.16 NG/ML (0.02-0.05) White Blood Count 14.6 TH/MM3 (4.0-11.0) Hemoglobin 10.7 GM/DL (11.6-15.3) Mean Corpuscular Volume 71.2 FL (80.0-100.0) Mean Corpuscular Hemoglobin 21.7 PG (27.0-34.0) Mean Corpuscular Hemoglobin Concent 30.5 % (32.0-36.0) Red Cell Distribution Width 20.0 % (11.6-17.2) Neutrophils (%) (Auto) 78.9 % (16.0-70.0) Neutrophils # (Auto) 11.5 TH/MM3 (1.8-7.7) Monocytes # (Auto) 1.1 TH/MM3 (0-0.9) B-Type Natriuretic Peptide 212 PG/ML (0-100) Test 08/31/17 10:45 09/01/17 06:45 09/01/17 11:15 09/01/17 17:52 Creatinine 1.24 MG/DL (0.50-1.00) 1.04 MG/DL (0.50-1.00) Random Glucose 263 MG/DL (74-106) 140 MG/DL (74-106) Estimat Glomerular Filtration Rate 59 ML/MIN (>89) 72 ML/MIN (>89) White Blood Count 13.0 TH/MM3 (4.0-11.0) Hemoglobin 10.6 GM/DL (11.6-15.3) Hematocrit 34.5 % (35.0-46.0) Mean Corpuscular Volume 71.3 FL (80.0-100.0) Mean Corpuscular Hemoglobin 21.9 PG (27.0-34.0) Mean Corpuscular Hemoglobin Concent 30.7 % (32.0-36.0) Red Cell Distribution Width 19.4 % (11.6-17.2) Neutrophils (%) (Auto) 71.8 % (16.0-70.0) Monocytes (%) (Auto) 10.4 % (0.0-8.0) Neutrophils # (Auto) 9.3 TH/MM3 (1.8-7.7) Monocytes # (Auto) 1.4 TH/MM3 (0-0.9) Activated Partial Thromboplast Time 57.6 SEC (24.3-30.1) 49.2 SEC (24.3-30.1) 59.6 SEC (24.3-30.1) Albumin 2.4 GM/DL (3.4-5.0) Potassium Level 3.4 MEQ/L (3.5-5.1) Hemoglobin A1c 7.2 % (4.3-6.0) Iron Level 18 MCG/DL (50-170) Percent Iron Saturation 5.5 % (20-50) Test 09/02/17 05:00 Hemoglobin 10.4 GM/DL (11.6-15.3) Hematocrit 33.6 % (35.0-46.0) Mean Corpuscular Volume 71.4 FL (80.0-100.0) Mean Corpuscular Hemoglobin 22.2 PG (27.0-34.0) Mean Corpuscular Hemoglobin Concent 31.0 % (32.0-36.0) Red Cell Distribution Width 19.5 % (11.6-17.2) Monocytes (%) (Auto) 10.9 % (0.0-8.0) Monocytes # (Auto) 1.1 TH/MM3 (0-0.9) Activated Partial Thromboplast Time 56.8 SEC (24.3-30.1) Creatinine 1.05 MG/DL (0.50-1.00) Random Glucose 121 MG/DL (74-106) Albumin 2.2 GM/DL (3.4-5.0) Calcium Level 8.4 MG/DL (8.5-10.1) Estimat Glomerular Filtration Rate 71 ML/MIN (>89) Imaging Last Impressions CT Angiography 08/29/17 0000 Signed Impressions: Service Date/Time: Wednesday, August 30, 2017 02:56 - CONCLUSION: 1. There are filling defects within the lower lobe segmental and subsegmental pulmonary arteries bilaterally representing PE. There is a focal air space consolidation in the right lower lobe likely representing infarct related to the PE. 2. Thickening of the pulmonary valve. Fausto Nation MD Hospital Course Patient was found to have bilateral pulmonary embolism with infarct on pulmonary angiogram. Patient was started on heparin drip with improvement in shortness of breath. Pulmonology was consulted. Patient also had leukocytosis 16.2 on admission, and due to right lower lobe consolidation, Patient was also started on Levaquin for possible infection, with resolution of leukocytosis. Patient developed hemoptysis on 09/01, however this has resolved. Cardiology was consulted during admission due to CHF exacerbation with bilateral lower extremity edema. BNP in the 200s, below baseline. Echocardiogram with ejection fraction 5 percent. Cardiology has cleared patient for discharge, no need for AICD at this time.. Patient was discharged home on Xarelto, to follow-up with cardiology, pulmonology as outpatient. Pros, cons of Xarelto versus warfarin, mainly the irreversibility of Xarelto versus warfarin. Patient and mother convey understanding. Patient was also found to have elevated blood sugars during admission, with highest of 263, however otherwise below 200. A1c was found to be 7.2, and patient is diagnosed with diabetes. Went over dietary modifications with patient and mother. For problem-based summary from most recent progress note, please see below. 09/02. No further hemoptysis. Stop heparin drip started novel anticoagulant. Discussed patient's A1c of 7.2, diagnosis of diabetes. Discussed diabetic diet and lifestyle modifications. Advised leisurely walking and advised against "power" walking, machines, or exercise classes. She conveys understanding. Follow-up with cardiology, pulmonology as outpatient. 09/01. Had plan to discharge patient home today. I have discussed with cardiology, and she will need to follow-up with cardiology as outpatient. No plans for AICD at this time. Unfortunately we'll need to hold discharge Due to new hemoptysis starting yesterday. I discussed with Dr. Jim of pulmonology, and will start patient back on heparin drip, hold off on starting anticoagulant by mouth at this time. Continue to monitor. 08/31. 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 She has not had an AICD. Given new bilateral pulmonary embolism with pulmonary infarct, We will consult cardiology for further evaluation for AICD placement and clearance for discharge. Continue heparin drip for now. Assessment/plan: //CHF exacerbation Chest x-ray significant for cardiomegaly unchanged from previous without pulmonary vascular congestion, personally reviewed BNP 704 IV Lasix Monitor for signs of volume overload, respiratory distress = 08/31. Continues with bilateral lower extremity edema. We'll check BNP. Continue Lasix. Check echocardiogram. Creatinine is slightly worse 1.2 which is around previous baseline. We'll continue to monitor. = 09/01. Echocardiogram still pending. Continue Lasix. BNP in the 200s. Switched to by mouth Lasix. Discussed With cardiology. = 09/02. Echocardiogram with slightly improved ejection fraction 2024 percent. No other changes. Discharge home, follow-up with cardiology. //Chest pain/elevated troponin EKG shows sinus tachycardia without ST segment elevations or depressions, personally reviewed Initial troponin 0.17, baseline for the patient Given patient is having chest pain, obtain serial troponin/EKGs = 08/31. Patient with pleuritic right-sided chest pain. Troponins below baseline. Previous catheter without coronary artery disease. Cardiology will be consulted for CHF exacerbation. = 09/01. Discussed with cardiology. No changes in management. Follow with farm loan inspector as outpatient. = 09/02. Echocardiogram with EF 20-25%. Cardiology as outpatient. // Hypertension Continue home medications //Right Lower lobe community-acquired pneumonia. We'll start Levaquin as per pulmonary recommendations. Appreciate assistance. = . Continue Levaquin to complete treatment course. FEN Heart healthy diet Electrolytes: monitor and replete prn Pt Condition on Discharge: Good Discharge Disposition: Discharge Home Discharge Time: > 30 minutes Discharge Instructions DIET: Follow Instructions for: Diabetic Diet Activities you can perform: Regular-No Restrictions Follow up Referrals: Cardiology - 1 Week with Karlos Manzanares MD PCP Follow-up - 2-3 Days Pulmonology - 1 Week with Hernán Jim MD New Medications: Aspirin DR (Aspirin EC) 81 Mg Tabdr 81 MG PO DAILY for heart for 30 Days, #30 TAB 0 Refills Rivaroxaban (Xarelto) 15 Mg Tab 15 MG PO Q12HR for Blood Clot Prevention for 21 Days, TAB 0 Refills start with this regimen, then switch to once daily dosing with 20mg. Rivaroxaban (Xarelto) 20 Mg Tab 20 MG PO DAILY for Blood Clot Prevention for 30 Days, #30 TAB 0 Refills Levofloxacin (Levaquin) 750 Mg Tablet 750 MG PO DAILY for Infection for 7 Days, #7 TAB Changed Medications: Furosemide (Lasix) 40 Mg Tab 40 MG PO BID for heart, #30 TAB 0 Refills (Changed from: DAILY) Potassium Chloride ER (Potassium Chloride ER) 10 Meq Tab 10 MEQ PO BID for Electrolyte Replacement, #30 TAB 0 Refills (Changed from: DAILY) Continued Medications: Carvedilol (Coreg) 12.5 Mg Tab 12.5 MG PO BID, #60 TAB 0 Refills Progesterone Micronized (Progesterone Micronized) 100 Mg Cap 200 MG PO HS, #30 CAP 0 Refills Discontinued Medications: Aspirin DR (Aspirin EC) 325 Mg Tabdr 325 MG PO DAILY for Blood Clot Prevention, #30 TAB Hold for bleeding Saleem John MD Sep 02, 2017 11:23
[2017-09-02 11:38] VITALS: BP 108/75; PULSE 95; RESP 18; TEMP 97.8; O2SAT 98
--- NOTE | 2017-09-02 16:18 | PD.CARD.PN ---
Subjective Subjective Remarks No events overnight No chest pain SOB better Objective Medications Current Medications Medications (Trade) Dose Ordered Sig/Kurt Route Start Time Stop Time Status Last Admin (NS Flush) 2 ml BID IV FLUSH 08/30/17 09:00 09/01/17 22:38 (NS Flush) 2 ml UNSCH PRN IV FLUSH 08/29/17 23:45 (Ecotrin Ec) 325 mg DAILY PO 08/30/17 09:00 09/02/17 08:56 (Coreg) 12.5 mg BID PO 08/30/17 00:30 09/02/17 08:56 (KCl) 10 meq DAILY PO 08/30/17 09:00 09/02/17 08:56 (Morphine Inj) 2 mg Q3H PRN IV PUSH 08/30/17 04:45 09/02/17 06:39 (Levaquin) 750 mg DAILY PO 08/31/17 10:00 09/02/17 08:56 (Lasix) 40 mg BID@,18 PO 09/01/17 18:00 09/02/17 08:56 (Xarelto) 15 mg BID PO 09/02/17 10:00 09/02/17 12:06 Vital Signs / I&O Vital Signs Date Time Temp Pulse Resp B/P (MAP) Pulse Ox O2 Delivery O2 Flow Rate FiO2 09/02/17 11:38 97.8 95 18 108/75 (86) 98 09/02/17 07:50 97.5 99 18 107/58 (74) 97 09/02/17 04:10 98.2 94 19 111/75 (87) 98 09/02/17 00:10 98.3 100 19 110/87 (95) 98 09/01/17 20:15 98.5 101 20 125/78 (94) 99 09/01/17 19:00 98.5 100 20 123/89 (100) 98 I/O 09/01/17 09/01/17 09/01/17 09/02/17 09/02/17 09/02/17 07:00 15:00 23:00 07:00 15:00 23:00 Intake Total 360 ml 480 ml 480 ml 240 ml Output Total 1750 ml 2300 ml 700 ml 600 ml Balance -1390 ml -1820 ml -220 ml -360 ml Intake Oral 360 ml 480 ml 480 ml 240 ml Output Urine Total 1750 ml 2300 ml 700 ml 600 ml # Bowel Movements 1 0 0 0 Physical Exam GENERAL: NAD, AAOx3 SKIN: Warm and dry. HEAD: Atraumatic. Normocephalic. EYES: Pupils equal and round. No scleral icterus. No injection or drainage. ENT: No nasal bleeding or discharge. Mucous membranes pink and moist. NECK: Trachea midline. No JVD. CARDIOVASCULAR: Regular rate and rhythm. RESPIRATORY: No accessory muscle use. Clear to auscultation. Breath sounds equal bilaterally. GASTROINTESTINAL: Abdomen soft, non-tender, nondistended. Hepatic and splenic margins not palpable. MUSCULOSKELETAL: Extremities without clubbing, cyanosis, or edema. No obvious deformities. NEUROLOGICAL: Awake and alert. No obvious cranial nerve deficits. Motor grossly within normal limits. Five out of 5 muscle strength in the arms and legs. Normal speech. PSYCHIATRIC: Appropriate mood and affect; insight and judgment normal. Laboratory Laboratory Tests Test 09/01/17 17:52 09/02/17 05:00 Activated Partial Thromboplast Time 59.6 SEC 56.8 SEC White Blood Count 10.2 TH/MM3 Red Blood Count 4.70 MIL/MM3 Hemoglobin 10.4 GM/DL Hematocrit 33.6 % Mean Corpuscular Volume 71.4 FL Mean Corpuscular Hemoglobin 22.2 PG Mean Corpuscular Hemoglobin Concent 31.0 % Red Cell Distribution Width 19.5 % Platelet Count 369 TH/MM3 Mean Platelet Volume 8.8 FL Neutrophils (%) (Auto) 63.9 % Lymphocytes (%) (Auto) 23.1 % Monocytes (%) (Auto) 10.9 % Eosinophils (%) (Auto) 1.4 % Basophils (%) (Auto) 0.7 % Neutrophils # (Auto) 6.5 TH/MM3 Lymphocytes # (Auto) 2.4 TH/MM3 Monocytes # (Auto) 1.1 TH/MM3 Eosinophils # (Auto) 0.1 TH/MM3 Basophils # (Auto) 0.1 TH/MM3 CBC Comment DIFF FINAL Differential Comment Blood Urea Nitrogen 14 MG/DL Creatinine 1.05 MG/DL Random Glucose 121 MG/DL Albumin 2.2 GM/DL Calcium Level 8.4 MG/DL Phosphorus Level 4.1 MG/DL Magnesium Level 2.0 MG/DL Sodium Level 141 MEQ/L Potassium Level 3.7 MEQ/L Chloride Level 106 MEQ/L Carbon Dioxide Level 29.2 MEQ/L Anion Gap 6 MEQ/L Estimat Glomerular Filtration Rate 71 ML/MIN Assessment and Plan Problem List: (1) Pulmonary embolism ICD Codes: I26.99 - Other pulmonary embolism without acute cor pulmonale (2) Elevated troponin ICD Codes: R74.8 - Abnormal levels of other serum enzymes (3) Microcytic anemia ICD Codes: D50.9 - Iron deficiency anemia, unspecified (4) 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 neoplasm of heart (5) Atypical chest pain ICD Codes: R07.89 - Other chest pain (6) HTN (hypertension) ICD Codes: I10 - Essential (primary) hypertension Assessment and Plan 1) Chest pain/elevated trop/SOB secondary to pulmonary embolism Anti-coagulation per primary team/pulmonary 2) Repeat echo showing EF 20-25% still 3) Cardiomyopathy, NICM, EF 20% Not a candidate for AICD therapy at this time Con't Coreg Discussed starting an CAMRON-I but blood pressure borderline previously, can be reevaluated outpt Follow up with her Welfare Adviser in [place] for further considerations 4) Atrial myxoma Follow up with her Welfare Adviser Procedure will most likely need to be after she completes her course of anti- coagulation 5) No further cardiovascular work up necessary at this time Dimitri Wood DO Sep 02, 2017 16:18
== END 2017-09-02 16:39 | disposition home or self-care (01) | DRG 175 ==
LOC: NEDDLT 22:10 → N06B 22:20
PROVIDERS: ADMIT Internal Medicine; ATTEND Internal Medicine
DX: I26.99 Other pulmonary embolism without acute cor pulmonale (principal); J18.9 Pneumonia, unspecified organism; I50.23 Acute on chronic systolic (congestive) heart failure; I42.9 Cardiomyopathy, unspecified; I27.20 Pulmonary hypertension, unspecified; I11.0 Hypertensive heart disease with heart failure; Z68.41 Body mass index [BMI] 40.0-44.9, adult; E11.65 Type 2 diabetes mellitus with hyperglycemia; R04.2 Hemoptysis; E66.9 Obesity, unspecified; R00.0 Tachycardia, unspecified; D15.1 Benign neoplasm of heart; I25.10 Atherosclerotic heart disease of native coronary artery without angina pectoris; D50.9 Iron deficiency anemia, unspecified
CPT/HCPCS: 71045; 71275; 80048; 80069; 82272; 82550; 82552; 82728; 83036; 83540; 83550; 83735; 83880; 84484; 84702; 85025; 85027; 85610; 85730; 93005; 93306; 96374; J1644; J1650; J1940; J2270; Q9967

== ENCOUNTER 2017-10-17 14:05 | Observation (INO) | payer OTHER ==
[~2017-10-17 14:05] MED LIST changes: -ASPI325T33 PO; +ASPI81TA23 PO; -CARV6.25 PO; -FURO1TAB62 PO; +LEVA750T9 PO; +XARE15TA PO; +XARE20TA PO
[2017-10-17] MEDS ORDERED: IOHEXOL 350 MG/ML 10 ML VIAL (for RAD DIAG) IVCONTRAST ONE (14:06)
[2017-10-17 14:40] VITALS: BP 165/108; PULSE 112; RESP 18; TEMP 97.8; O2SAT 100
--- NOTE | 2017-10-17 15:38 | RADRPT ---
EXAM DATE/TIME: 10/17/2017 15:15 [facility] COMPARISON: No previous studies available for comparison. INDICATIONS : Chest pain, short of breath. MEDICAL HISTORY : Congestive heart failure. Cardiovascular disease. Hypertension. 2 pulmonary embolisms 08/2017 SURGICAL HISTORY : None. ENCOUNTER: Initial ACUITY: 2 days PAIN SCORE: 8/10 LOCATION: Bilateral chest FINDINGS: PA and lateral views of the chest demonstrate the lungs to be symmetrically aerated without evidence of mass, infiltrate or effusion. The heart size is mildly prominent with no perihilar edema. Osseous structures are intact. CONCLUSION: Mild cardiomegaly with no acute cardiac pulmonary disease. Chuck Mckeon MD on October 17, 2017 at 15:35 Board Certified Radiologist. This report was verified electronically.
[2017-10-17 16:12] LABS: AUTOMATED NEUTROPHIL # 6.1 TH/MM3 (1.8-7.7); BASOPHIL # 0.1 TH/MM3 (0-0.2); BASOPHIL % 0.8 % (0.0-2.0); EOSINOPHIL # 0.1 TH/MM3 (0-0.4); HEMATOCRIT 34.8 % (35.0-46.0); LYMPH % 24.6 % (9.0-44.0); LYMPHOCYTE # 2.3 TH/MM3 (1.0-4.8); MEAN CELL VOLUME 72.8 FL (80.0-100.0); MEAN CORPUSCULAR HEMOGLOBIN 23.1 PG (27.0-34.0); MEAN CORPUSCULAR HGB CONC 31.7 % (32.0-36.0); MEAN PLATELET VOLUME 8.8 FL (7.0-11.0); MONO % 8.6 % (0.0-8.0); MONOCYTE # 0.8 TH/MM3 (0-0.9); PLATELET COUNT 389 TH/MM3 (150-450); RED BLOOD COUNT 4.78 MIL/MM3 (4.00-5.30); RED CELL DISTRIBUTION WIDTH 20.2 % (11.6-17.2); WHITE BLOOD COUNT 9.5 TH/MM3 (4.0-11.0)
[2017-10-17 16:21] LABS: PROTHROMBIN TIME - PATIENT 10.6 SEC (9.8-11.6)
[2017-10-17 16:35] LABS: ALBUMIN 3.2 GM/DL (3.4-5.0); ALT (GPT) 28 U/L (10-53); AST (GOT) 25 U/L (15-37); BLOOD UREA NITROGEN 14 MG/DL (7-18); CALCIUM 8.7 MG/DL (8.5-10.1); CHLORIDE 109 MEQ/L (98-107); CREATININE 1.13 MG/DL (0.50-1.00); GLOMERULAR FILTRATION RATE 65 ML/MIN (>89); GLUCOSE,RANDOM 127 MG/DL (74-106); MAGNESIUM 1.9 MG/DL (1.5-2.5); SODIUM (NA) 143 MEQ/L (136-145)
[2017-10-17 16:39] LABS: ALKALINE PHOSPHATASE 96 U/L (45-117); TOTAL BILIRUBIN ADULT 0.3 MG/DL (0.2-1.0); TOTAL PROTEIN 6.8 GM/DL (6.4-8.2); TROPONIN I 0.27 NG/ML (0.02-0.05)
--- NOTE | 2017-10-17 19:32 | PD ---
HPI Chief Complaint: Chest Pain Time Seen by Provider: 19:14 Travel History International Travel<30 days: No Contact w/Intl Traveler<30days: No Traveled to known affect area: No History of Present Illness HPI 37 year female presents emergency department complaining of bilateral chest and mid chest pain that started 2 days ago. States it is associated with shortness of breath and nausea. Her left chest pain radiates to the anterior axillary region in addition, states she has had some blood in the stool and on toilet paper and says her stools been occasional "orange color". Patient says that she was discharged in the hospital September 03 with PE and started her Xarelto September 04. Patient states she has been compliant compliant with his medication except for 2-3 days this week. Says she did not take this medication because she feels that it makes her menstrual periods heavier. Currently, she does deny fevers, chills, vomiting, diarrhea. She denies abdominal pain. Her irrigator is Dr. Wilder. [facility] Past Medical History Hx Anticoagulant Therapy: Yes (XARELTO) Anemia: Yes Arthritis: No Asthma: No Autoimmune Disease: No Anxiety: Yes Depression: No Heart Rhythm Problems: No Cancer: No Cardiac Catheterization: Yes Cardiovascular Problems: Yes High Cholesterol: No Chemotherapy: No Chest Pain: Yes Congestive Heart Failure: Yes COPD: No Cerebrovascular Accident: No Diabetes: No Diminished Hearing: No Endocrine: No GERD: No Genitourinary: No Hiatal Hernia: No Hypertension: Yes Immune Disorder: No Kidney Stones: No Musculoskeletal: Yes Neurologic: No Psychiatric: Yes Reproductive: No Respiratory: Yes Immunizations Current: Yes Migraines: No Radiation Therapy: No Renal Failure: No Seizures: No Sickle Cell Disease: No Sleep Apnea: No Thyroid Disease: No Ulcer: No Past Surgical History Abdominal Surgery: No AICD: No Arteriovenous Shunt: No Cardiac Surgery: Yes (CARDIAC CATH (NO STENTS)) Coronary Artery Bypass Graft: No Ear Surgery: No Endocrine Surgery: No Eye Surgery: No Genitourinary Surgery: No Gynecologic Surgery: No Insulin Pump: No Joint Replacement: No Oral Surgery: No Pacemaker: No Thoracic Surgery: No Social History Alcohol Use: No Tobacco Use: No Substance Use: No Allergies-Medications (Allergen,Severity, Reaction): Coded Allergies: No Known Allergies (Unverified , 08/29/17) Reported Meds & Prescriptions Reported Meds & Active Scripts Active Xarelto (Rivaroxaban) 20 Mg Tab 20 Mg PO DAILY 30 Days Aspirin EC (Aspirin) 81 Mg Tabdr 81 Mg PO DAILY 30 Days Lasix (Furosemide) 40 Mg Tab 40 Mg PO BID Potassium Chloride ER (Potassium Chloride) 10 Meq Tab 10 Meq PO BID Reported Coreg (Carvedilol) 12.5 Mg Tab 12.5 Mg PO BID Progesterone Micronized 100 Mg Cap 200 Mg PO HS Review of Systems Except as stated in HPI: all other systems reviewed are Neg Physical Exam Narrative GENERAL: Well developed, well-nourished no apparent distress SKIN: Focused skin assessment warm/dry. HEAD: Atraumatic. Normocephalic. EYES: Pupils equal and round. No scleral icterus. No injection or drainage. ENT: No nasal bleeding or discharge. Mucous membranes pink and moist. NECK: Trachea midline. No JVD. CARDIOVASCULAR: Tachycardic and regular no murmur appreciated. RESPIRATORY: No accessory muscle use. Clear to auscultation. Breath sounds equal bilaterally. GASTROINTESTINAL: Abdomen soft, non-tender, nondistended. Hepatic and splenic margins not palpable. MUSCULOSKELETAL: No obvious deformities. No clubbing. No cyanosis. No edema. Rectal exam performed with a nurse ply bander-good tone, brown stool. Scantly positive Hemoccult NEUROLOGICAL: Awake and alert. No obvious cranial nerve deficits. Motor grossly within normal limits. Normal speech. PSYCHIATRIC: Appropriate mood and affect; insight and judgment normal. Data Data Last Documented VS Vital Signs Date Time Temp Pulse Resp B/P (MAP) Pulse Ox O2 Delivery O2 Flow Rate FiO2 10/17/17 20:15 108 22 99 Nasal Cannula 2.00 10/17/17 20:15 134/89 (104) 10/17/17 14:40 97.8 Orders Orders Electrocardiogram (10/17/17 14:43) Ckmb (Isoenzyme) Profile (10/17/17 14:43) Complete Blood Count With Diff (10/17/17 14:43) Comprehensive Metabolic Panel (10/17/17 14:43) Magnesium (Mg) (10/17/17 14:43) Prothrombin Time / Inr (Pt) (10/17/17 14:43) Act Partial Throm Time (Ptt) (10/17/17 14:43) Troponin I (10/17/17 14:43) Chest, Pa & Lat (10/17/17 14:43) Lipase (10/17/17 14:43) CKMB (10/17/17 15:28) CKMB% (10/17/17 15:28) Troponin I (10/17/17 18:27) Ckmb (Isoenzyme) Profile (10/17/17 18:27) Ct Pulmonary Angiogram (10/17/17 ) CKMB (10/17/17 18:35) CKMB% (10/17/17 18:35) Iohexol 350 Inj (Omnipaque 350 Inj) (10/17/17 14:06) Admit Order (Ed Use Only) (10/17/17 22:13) Labs Laboratory Tests Test 10/17/17 15:28 10/17/17 18:35 White Blood Count 9.5 TH/MM3 Red Blood Count 4.78 MIL/MM3 Hemoglobin 11.0 GM/DL Hematocrit 34.8 % Mean Corpuscular Volume 72.8 FL Mean Corpuscular Hemoglobin 23.1 PG Mean Corpuscular Hemoglobin Concent 31.7 % Red Cell Distribution Width 20.2 % Platelet Count 389 TH/MM3 Mean Platelet Volume 8.8 FL Neutrophils (%) (Auto) 65.0 % Lymphocytes (%) (Auto) 24.6 % Monocytes (%) (Auto) 8.6 % Eosinophils (%) (Auto) 1.0 % Basophils (%) (Auto) 0.8 % Neutrophils # (Auto) 6.1 TH/MM3 Lymphocytes # (Auto) 2.3 TH/MM3 Monocytes # (Auto) 0.8 TH/MM3 Eosinophils # (Auto) 0.1 TH/MM3 Basophils # (Auto) 0.1 TH/MM3 CBC Comment DIFF FINAL Differential Comment Prothrombin Time 10.6 SEC Prothromb Time International Ratio 1.0 RATIO Activated Partial Thromboplast Time 22.9 SEC Blood Urea Nitrogen 14 MG/DL Creatinine 1.13 MG/DL Random Glucose 127 MG/DL Total Protein 6.8 GM/DL Albumin 3.2 GM/DL Calcium Level 8.7 MG/DL Magnesium Level 1.9 MG/DL Alkaline Phosphatase 96 U/L Aspartate Amino Transf (AST/SGOT) 25 U/L Alanine Aminotransferase (ALT/SGPT) 28 U/L Total Bilirubin 0.3 MG/DL Sodium Level 143 MEQ/L Potassium Level 4.2 MEQ/L Chloride Level 109 MEQ/L Carbon Dioxide Level 24.0 MEQ/L Anion Gap 10 MEQ/L Estimat Glomerular Filtration Rate 65 ML/MIN Total Creatine Kinase 167 U/L 163 U/L Creatine Kinase MB 1.8 NG/ML 1.7 NG/ML Troponin I 0.27 NG/ML 0.25 NG/ML Lipase 239 U/L MDM Medical Decision Making Medical Screen Exam Complete: Yes Emergency Medical Condition: Yes Differential Diagnosis PE, rectal bleeding, anemia, atypical chest pain Narrative Course 37-year-old female presents emergency department for evaluation of chest pain and shortness of breath that started 2 days ago. Says she felt nauseous yesterday but currently does not feel nauseous. Patient is she has been compliant with medication, Xarelto, since discharge September 03 except for 2-3 days this week where she did not take her medications. States she did not take her medications because she feels that this makes her menstrual periods heavier. She denies fever, chills, abdominal pain, leg pain. Labs and imaging studies ordered. Vital signs-tachycardic at 112, blood pressure elevated 165/108. CBC & BMP Diagram 10/17/17 15:28 Total Protein 6.8, Albumin 3.2 L, Calcium Level 8.7, Magnesium Level 1.9, Alkaline Phosphatase 96, Aspartate Amino Transf (AST/SGOT) 25, Alanine Aminotransferase (ALT/SGPT) 28, Total Bilirubin 0.3 Troponin 0.27, increased from her visit in August. Review of the EMR- Ct pulmonary angiogram shows PE. She was treated with heparin and discharged with xarelto. Nuc study dated May 2017 [address] EF 18%. CT pulmonary angiogram ordered. "Negative for pulmonary embolus. Improved right basilar airspace consolidation since August 30." Pt should restart her xarelto. Patient admitted to Dr. Rebolledo for atypical chest pain, r/o ACS Diagnosis Primary Impression: Atypical chest pain Admitting Information Admitting Physician Requests: Observation Condition: Stable Alycia Bashir Oct 17, 2017 19:32
[2017-10-17 19:53] LABS: TROPONIN I 0.25 NG/ML (0.02-0.05)
[2017-10-17 20:15] VITALS: BP 134/89; PULSE 108; RESP 24; O2SAT 99
--- NOTE | 2017-10-17 22:09 | RADRPT ---
EXAM DATE/TIME: 10/17/2017 21:32 [place] COMPARISON: CT PULMONARY ANGIOGRAM, August 30, 2017, 2:56. INDICATIONS : Right sided chest pain. History of emboli. IV CONTRAST: 80 cc Omnipaque 350 (iohexol) IV RADIATION DOSE: 23.38 CTDIvol (mGy) MEDICAL HISTORY : Cardiovascular disease. Hypertension. Emboli SURGICAL HISTORY : None. ENCOUNTER: Initial ACUITY: 2 days PAIN SCALE: 5/10 LOCATION: Right chest TECHNIQUE: Volumetric scanning of the chest was performed using a pulmonary embolism protocol MIP images were re constructed. Using automated exposure control and adjustment of the mA and/or kV according to patien t size, radiation dose was kept as low as reasonably achievable to obtain optimal diagnostic quality images. DICOM format image data is available electronically for review and comparison. Follow-up recommendations for detected pulmonary nodules are based at a minimum on nodule size and pa tient risk factors according to Fleischner Society Guidelines. FINDINGS: Compare August 30. Right basilar airspace consolidation has improved with some residual subsegmental basilar airspace disease. Also minimal subsegmental opacity left lung base probably scarring and ate lectasis. No filling defects to suggest pulmonary embolus. No pleural or pericardial effusion. Heart size is en larged. No acute finding seen in the upper abdomen. CONCLUSION: 1. Negative for pulmonary embolus. 2. Improved right basilar airspace consolidation since August 30. Zacarias Jeryr MD on October 17, 2017 at 22:04 Board Certified Radiologist. This report was verified electronically.
[2017-10-17 23:08] VITALS: BP 151/101; PULSE 109; RESP 20; O2SAT 100
--- NOTE | 2017-10-17 23:29 | HHI.HP ---
HPI Service [facility] Primary Care Physician Unknown Admission Diagnosis Chest pain Diagnoses: Travel History International Travel<30 Days: No Contact w/Intl Traveler <30 Da: No Traveled to Known Affected Are: No History of Present Illness 37-year-old female with a past medical history significant for previous PE, anticoagulated on Xarelto, CHF echo done on 09/01/17 shows an EF of 20 and 25%), atrial myxoma and coronary artery disease presents to the emergency department with chest pain under her bilateral breasts and shortness of breath. The patient reports the symptoms are similar to her previous PE. She states she has had chest pain for the past 2 days and the shortness of breath 1 week. She reports that she stopped taking the Xarelto for 2 days last week during her menses. She denies nausea/vomiting/diarrhea. No abdominal pain. No dysuria. No fever/chills. Review of Systems Except as stated in HPI: all other systems reviewed are Neg Past Family Social History Past Medical History previous PE, anticoagulated on Xarelto, CHF echo done on 09/01/17 shows an EF of 20 and 25%), atrial myxoma and coronary artery disease Past Surgical History Cardiac catheterization on 06/10 Reported Medications Reported Meds & Active Scripts Active Xarelto (Rivaroxaban) 20 Mg Tab 20 Mg PO DAILY 30 Days Aspirin EC (Aspirin) 81 Mg Tabdr 81 Mg PO DAILY 30 Days Lasix (Furosemide) 40 Mg Tab 40 Mg PO BID Potassium Chloride ER (Potassium Chloride) 10 Meq Tab 10 Meq PO BID Reported Coreg (Carvedilol) 12.5 Mg Tab 12.5 Mg PO BID Progesterone Micronized 100 Mg Cap 200 Mg PO HS Allergies: Coded Allergies: No Known Allergies (Unverified , 08/29/17) Family History Mother with diabetes mellitus, father with hypertension Social History Quit tobacco in May. Occasional alcohol. Denies illicit drugs. Physical Exam Vital Signs Vital Signs Date Time Temp Pulse Resp B/P (MAP) Pulse Ox O2 Delivery O2 Flow Rate FiO2 10/17/17 20:15 108 22 99 Nasal Cannula 2.00 10/17/17 20:15 108 24 134/89 (104) 99 Nasal Cannula 2.00 10/17/17 14:40 97.8 112 18 165/108 (127) 100 Physical Exam GENERAL: female, lying in bed SKIN: No rashes, ecchymoses or lesions. Cool and dry. HEAD: Atraumatic. Normocephalic. No temporal or scalp tenderness. EYES: Pupils equal round and reactive. Extraocular motions intact. No scleral icterus. No injection or drainage. ENT: Nose without bleeding, purulent drainage or septal hematoma. Throat without erythema, tonsillar hypertrophy or exudate. Uvula midline. Airway patent. NECK: Trachea midline. No JVD or lymphadenopathy. Supple, nontender, no meningeal signs. CARDIOVASCULAR: Tachycardic with regular rhythm without murmurs, gallops, or rubs. RESPIRATORY: Clear to auscultation. Breath sounds equal bilaterally. No wheezes , rales, or rhonchi. GASTROINTESTINAL: Abdomen soft, non-tender, nondistended. No hepato-splenomegaly , or palpable masses. No guarding. MUSCULOSKELETAL: Extremities without clubbing, cyanosis, or edema. No joint tenderness, effusion, or edema noted. No calf tenderness. NEUROLOGICAL: Awake and alert. Cranial nerves II through XII intact. Motor and sensory grossly within normal limits. Normal speech. Laboratory Laboratory Tests Test 10/17/17 15:28 10/17/17 18:35 White Blood Count 9.5 Red Blood Count 4.78 Hemoglobin 11.0 Hematocrit 34.8 Mean Corpuscular Volume 72.8 Mean Corpuscular Hemoglobin 23.1 Mean Corpuscular Hemoglobin Concent 31.7 Red Cell Distribution Width 20.2 Platelet Count 389 Mean Platelet Volume 8.8 Neutrophils (%) (Auto) 65.0 Lymphocytes (%) (Auto) 24.6 Monocytes (%) (Auto) 8.6 Eosinophils (%) (Auto) 1.0 Basophils (%) (Auto) 0.8 Neutrophils # (Auto) 6.1 Lymphocytes # (Auto) 2.3 Monocytes # (Auto) 0.8 Eosinophils # (Auto) 0.1 Basophils # (Auto) 0.1 CBC Comment DIFF FINAL Differential Comment Prothrombin Time 10.6 Prothromb Time International Ratio 1.0 Activated Partial Thromboplast Time 22.9 Blood Urea Nitrogen 14 Creatinine 1.13 Random Glucose 127 Total Protein 6.8 Albumin 3.2 Calcium Level 8.7 Magnesium Level 1.9 Alkaline Phosphatase 96 Aspartate Amino Transf (AST/SGOT) 25 Alanine Aminotransferase (ALT/SGPT) 28 Total Bilirubin 0.3 Sodium Level 143 Potassium Level 4.2 Chloride Level 109 Carbon Dioxide Level 24.0 Anion Gap 10 Estimat Glomerular Filtration Rate 65 Total Creatine Kinase 167 163 Creatine Kinase MB 1.8 1.7 Troponin I 0.27 0.25 Lipase 239 Result Diagram: 10/17/17 1528 10/17/17 1528 Caprini VTE Risk Assessment Caprini VTE Risk Assessment: Mod/High Risk (score >= 2) Caprini Risk Assessment Model Point Value = 1 Point Value = 2 Point Value = 3 Point Value = 5 Age 41-60 Minor surgery BMI > 25 kg/m2 Swollen legs Varicose veins or History of unexplained or recurrent spontaneous Oral contraceptives or hormone replacement Sepsis (< 1 month) Serious lung disease, including pneumonia (< 1 month) Abnormal pulmonary function Acute myocardial infarction Congestive heart failure (< 1 month) History of inflammatory bowel disease Medical patient at bed rest Age 61-74 Arthroscopic surgery Major open surgery (> 45 min) Laparoscopic surgery (> 45 min) Malignancy Confined to bed (> 72 hours) Immobilizing plaster cast Central venous access Age >= 75 History of VTE Family history of VTE Factor V Leiden Prothrombin [id number] Lupus anticoagulant Anticardiolipin antibodies Elevated serum homocysteine Heparin-induced thrombocytopenia Other congenital or acquired thrombophilia Stroke (< 1 month) Elective arthroplasty Hip, pelvis, or leg fracture Acute spinal cord injury (< 1 month) Prophylaxis Regimen Total Risk Factor Score Risk Level Prophylaxis Regimen 0-1 Low Early ambulation 2 Moderate Order ONE of the following: *Sequential Compression Device (SCD) *Heparin 5000 units SQ BID 3-4 Higher Order ONE of the following medications: *Heparin 5000 units SQ TID *Enoxaparin/Lovenox 40 mg SQ daily (WT < 150 kg, CrCl > 30 mL/min) *Enoxaparin/Lovenox 30 mg SQ daily (WT < 150 kg, CrCl > 10-29 mL/min) *Enoxaparin/Lovenox 30 mg SQ BID (WT < 150 kg, CrCl > 30 mL/min) AND/OR *Sequential Compression Device (SCD) 5 or more Highest Order ONE of the following medications: *Heparin 5000 units SQ TID (Preferred with Epidurals) *Enoxaparin/Lovenox 40 mg SQ daily (WT < 150 kg, CrCl > 30 mL/min) *Enoxaparin/Lovenox 30 mg SQ daily (WT < 150 kg, CrCl > 10-29 mL/min) *Enoxaparin/Lovenox 30 mg SQ BID (WT < 150 kg, CrCl > 30 mL/min) AND *Sequential Compression Device (SCD) Assessment and Plan Assessment and Plan Assessment/plan: 1. Chest pain/shortness of breath Patient with elevated troponin 0.27, baseline between 0.4-0.16 EKG significant for sinus tachycardia without ST segment elevation or depression , personally reviewed ACS rule out pending; serial troponins/EKGs CTA negative for PE Patient has inspector watch parts on [place], will need to follow-up as an outpatient 2. History of PE Continue anticoagulation with Xarelto 3. CHF Continue home carvedilol and Lasix 4. Atrial myxoma Last evaluated by cardiology on 09/02/17 Recommend follow-up with her inspector watch parts outpatient Procedure will most likely need to be completed after she completes her course of anticoagulation FEN Heart healthy diet Electrolytes: Monitor and replete when necessary Milla Longo MD Oct 17, 2017 23:28
[2017-10-17] MEDS ORDERED: NALOXONE HCL 0.4 MG/ML AMP IV PUSH PRN (23:30)
[2017-10-17] MEDS ORDERED: BISACODYL 10 MG SUPP RECTAL PRN (23:30)
[2017-10-17] MEDS ORDERED: MAGNESIUM HYDROXIDE SUSP 30 ML CUP PO PRN (23:30)
[2017-10-17] MEDS ORDERED: SODIUM CHLORIDE 0.9% FLUSH 10 ML FLUSH IV FLUSH PRN (23:30)
[2017-10-17] MEDS ORDERED: ONDANSETRON HCL 4 MG/2 ML VIAL IVP PRN (23:30)
[2017-10-17] MEDS ORDERED: SENNOSIDES 8.6 MG TAB PO PRN (23:30)
[2017-10-17] MEDS ORDERED: LACTULOSE SYRUP 20 GM/30 ML CUP PO PRN (23:30)
[2017-10-17] MEDS ORDERED: ACETAMINOPHEN 325 MG TAB PO PRN (23:30)
[2017-10-18] VITALS (10 sets, daily range): BP systolic 112–149; BP diastolic 70–88; PULSE 89–111; RESP 14–20; TEMP 97.4–98.9; O2SAT 95–99
[2017-10-18 07:26] LABS: AUTOMATED NEUTROPHIL # 8.1 TH/MM3 (1.8-7.7); BASOPHIL # 0.1 TH/MM3 (0-0.2); BASOPHIL % 0.7 % (0.0-2.0); EOSINOPHIL # 0.2 TH/MM3 (0-0.4); EOSINOPHIL % 1.8 % (0.0-4.0); HEMATOCRIT 34.7 % (35.0-46.0); HEMOGLOBIN 10.8 GM/DL (11.6-15.3); LYMPH % 16.9 % (9.0-44.0); LYMPHOCYTE # 1.8 TH/MM3 (1.0-4.8); MEAN CELL VOLUME 72.3 FL (80.0-100.0); MEAN CORPUSCULAR HEMOGLOBIN 22.4 PG (27.0-34.0); MONO % 6.2 % (0.0-8.0); MONOCYTE # 0.7 TH/MM3 (0-0.9); NEUT % 74.4 % (16.0-70.0); PLATELET COUNT 339 TH/MM3 (150-450); RED CELL DISTRIBUTION WIDTH 20.1 % (11.6-17.2); WHITE BLOOD COUNT 10.9 TH/MM3 (4.0-11.0)
[2017-10-18 08:00] LABS: BICARBONATE 22.2 MEQ/L (21.0-32.0); CALCIUM 8.5 MG/DL (8.5-10.1); CREATININE 0.89 MG/DL (0.50-1.00)
[2017-10-18] MEDS: RIVAROXABAN 20 MG TAB PO SCH (08:01)
[2017-10-18] MEDS: POTASSIUM CHLORIDE 10 MEQ CONTROLLED RELEASE TAB PO SCH ×2 (08:01→21:52)
[2017-10-18] MEDS: ASPIRIN EC 81 MG TABEC PO SCH (08:02)
[2017-10-18] MEDS: CARVEDILOL 12.5 MG TAB PO SCH ×2 (08:02→21:52)
[2017-10-18] MEDS: SODIUM CHLORIDE 0.9% FLUSH 10 ML FLUSH IV FLUSH SCH ×2 (08:02→21:52)
[2017-10-18] MEDS: FUROSEMIDE 40 MG TAB PO SCH ×2 (08:02→21:52)
[2017-10-18] MEDS: DOCUSATE SODIUM 50 MG/SENNA 8.6 MG TAB PO SCH ×2 (08:03→21:52)
--- NOTE | 2017-10-18 10:16 | HHI.PR ---
Subjective Remarks Follow-up on patient with chest pain, history of PEs. Patient states that yesterday after walking approximately 50 feet from her car across the parking lot into school and then up a flight of stairs while carrying a backpack she developed nonradicular midsternal chest pain with associated shortness of breath , diaphoresis and dizziness. She denies any associated nausea, vomiting, vision changes or palpitations. Patient states that her symptoms resolved after about 10 minutes of rest except for the chest pain which lingered for about 20 minutes before resolving on its own. Patient states that she has had multiple episodes of these symptoms occurring with activity for the past several days. She states that for the past several weeks she's had shortness of breath with minimal exertion including bending over to tie her shoes. She denies any cough or sputum production. She denies any recent weight gain. She states that she has lower extremity edema at the end of the day after working which is resolved in the morning. She denies any recent weight gain or change in her diet. She denies any change in her medications. She also states that for the past several days she's had sharp left-sided chest pain with deep inspiration which is similar to pain she experienced previously when having her PE. She does admit to being off Xarelto for several days last week while she was on her menses. CTA was negative for PE. She follows with Dr. Wilder of cardiology in [place]. Patient denies any complaints of midsternal chest pain or shortness of breath at this time. She does state that she continues to have sharp left-sided chest pain underneath the left breast with deep inspiration. Objective Vitals Vital Signs Date Time Temp Pulse Resp B/P (MAP) Pulse Ox O2 Delivery O2 Flow Rate FiO2 10/18/17 08:50 98.9 104 16 118/88 (98) 99 10/18/17 07:07 108 10/18/17 06:02 98.6 111 16 112/82 (92) 96 10/18/17 04:10 107 10/18/17 01:42 100 10/18/17 01:32 98.2 104 16 116/75 (89) 96 10/17/17 23:08 109 20 151/101 (118) 100 Nasal Cannula 2.00 10/17/17 20:15 108 22 99 Nasal Cannula 2.00 10/17/17 20:15 108 24 134/89 (104) 99 Nasal Cannula 2.00 10/17/17 14:40 97.8 112 18 165/108 (127) 100 Result Diagram: 10/18/17 0620 10/18/17 0630 Imaging Last Impressions Chest X-Ray 10/17/17 1443 Signed Impressions: Service Date/Time: Tuesday, October 17, 2017 15:15 - CONCLUSION: Mild cardiomegaly with no acute cardiac pulmonary disease. Chuck Mckeon MD CT Angiography 10/17/17 0000 Signed Impressions: Service Date/Time: Tuesday, October 17, 2017 21:32 - CONCLUSION: 1. Negative for pulmonary embolus. 2. Improved right basilar airspace consolidation since August 30. Zacarias Jerry MD Objective Remarks GENERAL: Well-nourished, well-developed female patient in NAD. Awake and alert. A SKIN: Warm and dry. No rash. HEAD: Normocephalic. Atraumatic. EYES: EOMI. No scleral icterus. No injection or drainage. ENT: No nasal bleeding or discharge. Mucous membranes pink and moist. NECK: Supple. Trachea midline. CARDIOVASCULAR: Regular rate and rhythm. S1, S2 noted. No murmur appreciated. RESPIRATORY: Nonlabored. Clear to auscultation. Breath sounds equal bilaterally. GASTROINTESTINAL: Abdomen soft, non-tender, nondistended. Normoactive bowel sounds x4. MUSCULOSKELETAL: No obvious deformities. Extremities without clubbing, cyanosis , or edema. NEUROLOGICAL: Awake and alert. No obvious cranial nerve deficits. Motor and sensory function grossly within normal limits. Nonfocal. Normal speech. PSYCHIATRIC: Appropriate mood and affect; insight and judgment normal. Medications and IVs Current Medications Medications (Trade) Dose Ordered Sig/Kurt Route Start Time Stop Time Status Last Admin (NS Flush) 2 ml UNSCH PRN IV FLUSH 10/17/17 23:30 (NS Flush) 2 ml BID IV FLUSH 10/18/17 09:00 10/18/17 08:02 (Tylenol) 650 mg Q4H PRN PO 10/17/17 23:30 (Zofran Inj) 4 mg Q6H PRN IVP 10/17/17 23:30 (Narcan Inj) 0.4 mg UNSCH PRN IV PUSH 10/17/17 23:30 (Matilde-Colace) 1 tab BID PO 10/18/17 09:00 (Milk Of Magnesia Liq) 30 ml Q12H PRN PO 10/17/17 23:30 (Senokot) 17.2 mg Q12H PRN PO 10/17/17 23:30 (Dulcolax Supp) 10 mg DAILY PRN RECTAL 10/17/17 23:30 (Lactulose Liq) 30 ml DAILY PRN PO 10/17/17 23:30 (Ecotrin Ec) 81 mg DAILY PO 10/18/17 09:00 10/18/17 08:02 (Coreg) 12.5 mg BID PO 10/18/17 09:00 10/18/17 08:02 (Lasix) 40 mg BID PO 10/18/17 09:00 10/18/17 08:02 (KCl) 10 meq BID PO 10/18/17 09:00 10/18/17 08:01 (Xarelto) 20 mg DAILY PO 10/18/17 09:00 10/18/17 08:01 Patient Own Medication PT OWN MED: PROGESTERONE 200 MG PO HS HS PO 10/18/17 21:00 Future Hold A/P Assessment and Plan 1. Chest pain/shortness of breath Unstable angina Patient with elevated troponin 0.27 and 0.25, baseline between 0.4-0.16 EKG significant for sinus tachycardia without ST segment elevation or depression , personally reviewed CTA negative for PE ACS rule out pending Consult cardiology, appreciate assistance Keep NPO for now until evaluated by cardiology Patient has property administrator on [place], will need to follow-up as an outpatient 2. History of PE, diagnosed in August 2017 Medication noncompliance, patient skipped few days of her Xarelto last week while on menses CTA negative for PE Continue anticoagulation with Xarelto 3. CHF Echo 09/11/17 EF 20-25%, does not have an AICD Appears euvolemic CXR shows mild cardiomegaly with no evidence of acute cardiopulmonary process, images reviewed by me Obtain BNP Continue home carvedilol and Lasix Monitor for signs of fluid overload 4. Atrial myxoma Last evaluated by cardiology on 09/02/17 Recommend follow-up with her property administrator outpatient Procedure will most likely need to be completed after she completes her course of anticoagulation 5. Diabetes A1c 7.2 09/01/17 Accucheck and ISS diabetic heart healthy diet once cleared by cardiology to resume diet FEN NPO Electrolytes: Monitor and replete when necessary Xarelto Discharge Planning Pending further workup and cardiology clearance Annamarie Harris Oct 18, 2017 10:16
[2017-10-18] MEDS ORDERED: GLUCAGON 1 MG/ML VIAL OTHER PRN (10:30)
[2017-10-18] MEDS ORDERED: DEXTROSE 50% IN WATER 50 ML VIAL(D50) IV PUSH PRN (10:30)
[2017-10-18] MEDS: INSULIN ASPART SUPPLEMENTAL SCALE SQ SCH ×3 (12:54→21:00)
--- NOTE | 2017-10-18 15:39 | EKG ---
Date Performed: 10/17/2017 Time Performed: 15:07:08 PTAGE: 37 years EKG: SINUS TACHYCARDIA POSSIBLE LEFT ATRIAL ENLARGEMENT NONSPECIFIC T-WAVE ABNORMALITY ABNORMAL RHYTHM ECG INTERPRETATION BASED ON A DEFAULT AGE OF 40 YEARS Since the previous tracing, no significa nt change noted NO PREVIOUS TRACING DOCTOR: Alfred Bhatti Interpretating Date/Time 10/18/2017 15:38:06
[2017-10-18] MEDS ORDERED: PROGESTERONE MICRONIZED 200 MG PO SCH (21:00)
[2017-10-18] MEDS ORDERED: PROGESTERONE 200 MG PO SCH (21:00)
[2017-10-19] VITALS: PULSE 107
[2017-10-19 00:25] VITALS: BP 136/87; PULSE 100; RESP 16; TEMP 98.3; O2SAT 99
--- NOTE | 2017-10-19 00:26 | MB ---
cc: Desean Bradley MD DATE: 10/18/2017 HISTORY OF PRESENT ILLNESS: Brandy is a very pleasant 37-year-old lady with a history of nonischemic cardiomyopathy, nonobstructive coronary disease, pulmonary embolus, currently followed in [place] by a nailing machine feeder, presented to the ER with chief complaint of bilateral chest pain, mid chest pain for 2 days prior to admission associated with shortness of breath and nauseousness. When I saw the patient in the ER, the patient was comfortable, eating lunch, in no acute distress. Otherwise, denies any fevers, chills, cough, GI or bleeding, PND, orthopnea, syncope or dizziness. She has been noncompliant with Xarelto for 3 days prior to admission due to causing increased menstrual flow. PAST MEDICAL HISTORY: As per history of present illness. She has a history of anemia. SOCIAL HISTORY: Denies tobacco or alcohol use. ALLERGIES: NONE. MEDICATIONS PRIOR TO ADMISSION: 1. Xarelto 20 mg, which she has been noncompliant with for 3 days prior to admission. 2. Aspirin 81 mg a day. 3. Lasix 40 mg b.i.d. 4. Potassium. 5. Coreg 12.5 b.i.d. 6. Progesterone. MEDICATIONS IN THE HOSPITAL: 1. Insulin. 2. Aspirin 81 mg a day. 3. Carvedilol 12.5 b.i.d. 4. Lasix 40 b.i.d. 5. Potassium 10 mEq b.i.d. 6. Xarelto 20 mg daily. PHYSICAL EXAMINATION: VITAL SIGNS: Blood pressure 125/70, pulse 89, respiratory rate 14, temperature 98.0. GENERAL: She is alert and oriented x3, in no acute distress. NECK: Supple. No JVD. No bruit. CARDIOVASCULAR: S1, S2. No murmurs, rubs or gallops. LUNGS: Clear to auscultation bilaterally. ABDOMEN: Soft, nontender, nondistended, with positive bowel sounds. EXTREMITIES: No cyanosis, clubbing or edema. LABORATORY DATA: White count 10.9, hemoglobin 10.8, hematocrit 34.7, platelet count 339. Sodium 140, potassium 4.1, chloride 110, bicarb 22.2, BUN 13, creatinine 0.89. Troponins 0.27 and 0.25. BNP is 328. LFTs normal. INR is 1.0. EKG shows sinus tachycardia at 107 beats per minute, nonspecific ST and T-wave changes. CTA of the chest: Negative for pulmonary embolus, improved right basilar airspace consolidation since 08/30. Chest x-ray: Mild cardiomegaly with no acute cardiopulmonary disease. FINAL DIAGNOSES: 1. Ole-VS-[id number] myocardial infarction. 2. Chest pain. 3. Nonischemic cardiomyopathy. 4. Nonobstructive coronary artery disease. 5. Medical noncompliance. 6. History of pulmonary embolus. 7. Hyperglycemia. 8. Anemia. DISCUSSION: At this point in time, I do not think she has a primary obstructive coronary event. She just had a heart catheterization done on 06/10/[address] Manzanares which showed a 30 percent stenosis in the mid LAD. Agree with restarting Xarelto due to her history of pulmonary embolus. Aspirin is appropriate therapy for her nonobstructive coronary artery disease. Optimally, she should be on a statin as well. We will need to check her fasting lipids. Recommend continued Coreg, and optimally, the patient should also be on an CAMRON inhibitor given her cardiomyopathy. Recommend continued telemetry monitoring, also monitor trends in chest pain, heart rate, and BNP. Agree with the Lasix as well, due to the elevated BNP. MD ARTIS Mercado/DINORAH , 11:42 PM , 12:26 AM
[2017-10-19 04:56] VITALS: BP 135/93; PULSE 100; RESP 14; TEMP 98; O2SAT 98
[2017-10-19] MEDS ORDERED: LISI-519 PO (07:48)
--- NOTE | 2017-10-19 07:49 | HHI.PR ---
Subjective Remarks Follow-up on patient with shortness of breath and chest pain. Patient seen and examined. Patient states she feels "wonderful" and is hoping to be discharged today. She denies any chest pain or shortness of breath this morning. She denies any fever or chills. Denies any nausea, vomiting or abdominal pain. Objective Vitals Vital Signs Date Time Temp Pulse Resp B/P (MAP) Pulse Ox O2 Delivery O2 Flow Rate FiO2 10/19/17 04:56 98.0 100 14 135/93 (107) 98 10/19/17 00:25 98.3 100 16 136/87 (103) 99 10/19/17 00:00 107 10/18/17 20:12 98.0 89 14 125/70 (88) 98 10/18/17 20:00 102 10/18/17 16:38 97.4 104 18 128/81 (97) 95 10/18/17 12:39 98.0 105 20 149/87 (107) 97 10/18/17 08:50 98.9 104 16 118/88 (98) 99 I/O 10/18/17 10/18/17 10/18/17 10/19/17 10/19/17 10/19/17 07:00 15:00 23:00 07:00 15:00 23:00 Intake Total 480 ml Balance 480 ml Intake Oral 480 ml # Voids 2 1 # Bowel Movements 1 Result Diagram: 10/18/17 0620 10/18/17 0630 Imaging Last Impressions Chest X-Ray 10/17/17 1443 Signed Impressions: Service Date/Time: Tuesday, October 17, 2017 15:15 - CONCLUSION: Mild cardiomegaly with no acute cardiac pulmonary disease. Chuck Mckeon MD CT Angiography 10/17/17 0000 Signed Impressions: Service Date/Time: Tuesday, October 17, 2017 21:32 - CONCLUSION: 1. Negative for pulmonary embolus. 2. Improved right basilar airspace consolidation since August 30. Zacarias Jerry MD Objective Remarks GENERAL: Well-nourished, well-developed female patient in NAD. Awake and alert. Sitting up in bed. Appears comfortable. SKIN: Warm and dry. No rash. HEAD: Normocephalic. Atraumatic. EYES: EOMI. No scleral icterus. No injection or drainage. ENT: No nasal bleeding or discharge. Mucous membranes pink and moist. NECK: Supple. Trachea midline. CARDIOVASCULAR: Regular rate and rhythm. S1, S2 noted. No murmur appreciated. RESPIRATORY: Nonlabored. Clear to auscultation. Breath sounds equal bilaterally. GASTROINTESTINAL: Abdomen soft, non-tender, nondistended. Normoactive bowel sounds x4. MUSCULOSKELETAL: No obvious deformities. Extremities without clubbing, cyanosis , or edema. NEUROLOGICAL: Awake and alert. No obvious cranial nerve deficits. Motor and sensory function grossly within normal limits. Nonfocal. Normal speech. PSYCHIATRIC: Appropriate mood and affect; insight and judgment normal. Medications and IVs Current Medications Medications (Trade) Dose Ordered Sig/Kurt Route Start Time Stop Time Status Last Admin (NS Flush) 2 ml UNSCH PRN IV FLUSH 10/17/17 23:30 (NS Flush) 2 ml BID IV FLUSH 10/18/17 09:00 10/18/17 21:52 (Tylenol) 650 mg Q4H PRN PO 10/17/17 23:30 10/18/17 10:11 (Zofran Inj) 4 mg Q6H PRN IVP 10/17/17 23:30 (Narcan Inj) 0.4 mg UNSCH PRN IV PUSH 10/17/17 23:30 (Matilde-Colace) 1 tab BID PO 10/18/17 09:00 10/18/17 21:52 (Milk Of Magnesia Liq) 30 ml Q12H PRN PO 10/17/17 23:30 (Senokot) 17.2 mg Q12H PRN PO 10/17/17 23:30 (Dulcolax Supp) 10 mg DAILY PRN RECTAL 10/17/17 23:30 (Lactulose Liq) 30 ml DAILY PRN PO 10/17/17 23:30 (Ecotrin Ec) 81 mg DAILY PO 10/18/17 09:00 10/18/17 08:02 (Coreg) 12.5 mg BID PO 10/18/17 09:00 10/18/17 21:52 (Lasix) 40 mg BID PO 10/18/17 09:00 10/18/17 21:52 (KCl) 10 meq BID PO 10/18/17 09:00 10/18/17 21:52 (Xarelto) 20 mg DAILY PO 10/18/17 09:00 10/18/17 08:01 Patient Own Medication PT OWN MED: PROGESTERONE 200 MG PO HS HS PO 10/18/17 21:00 Future Hold (D50w (Vial) Inj) 50 ml UNSCH PRN IV PUSH 10/18/17 10:30 (Glucagon Inj) 1 mg UNSCH PRN OTHER 10/18/17 10:30 (NovoLOG SUPPLEMENTAL SCALE) 1 ACHS SLIDING SCALE SQ 10/18/17 12:00 10/18/17 17:19 (Prinivil) 5 mg DAILY PO 10/19/17 09:00 A/P Assessment and Plan 1. NSTEMI Patient with elevated troponin 0.27 and 0.25, baseline between 0.4-0.16 EKG significant for sinus tachycardia without ST segment elevation or depression , personally reviewed CTA negative for PE Consult cardiology, appreciate assistance - unlikely obstructive event. 30% stenosis in mid LAD by heart cath 06/10/17. Continue Xarelto and ASA. Continue Coreg and add ACEI. Lipid profile - TG 120, Chol 131, LDL 66, HDL 40.9 Patient has maintenance custodian on [place], will need to follow-up as an outpatient. Discuss initiation of statin therapy. 2. History of PE, diagnosed in August 2017 Medication noncompliance, patient skipped few days of her Xarelto last week while on menses CTA negative for PE Continue anticoagulation with Xarelto 3. CHF Echo 09/11/17 EF 20-25%, does not have an AICD Appears euvolemic CXR shows mild cardiomegaly with no evidence of acute cardiopulmonary process, images reviewed by me BNP 328 Continue home carvedilol and Lasix. Started on Lisinopril. Monitor for signs of fluid overload 4. Atrial myxoma Last evaluated by cardiology on 09/02/17 Recommend follow-up with her maintenance custodian outpatient Procedure will most likely need to be completed after she completes her course of anticoagulation 5. Diabetes A1c 7.2 09/01/17 Accucheck and ISS - blood sugars have been good diabetic heart healthy diet Diabetic education FEN Electrolytes: Monitor and replete when necessary Xarelto 1207 patient cleared for discharge from cardiology standpoint. Discharge patient to home Condition on discharge: Improved Heart healthy diabetic Diet as tolerated Ad Nicky activity Rx written: Lisinopril 5mg daily Follow-up with primary care physician and maintenance custodian Discharge Planning Discharge pending cardiology clearance Annamarie Harris Oct 19, 2017 07:49
[2017-10-19 07:59] VITALS: BP 117/93; PULSE 106; RESP 18; TEMP 98.2; O2SAT 98
[2017-10-19 08:04] VITALS: PULSE 106
[2017-10-19] MEDS: POTASSIUM CHLORIDE 10 MEQ CONTROLLED RELEASE TAB PO SCH (08:12)
[2017-10-19] MEDS: SODIUM CHLORIDE 0.9% FLUSH 10 ML FLUSH IV FLUSH SCH (08:12)
[2017-10-19] MEDS: CARVEDILOL 12.5 MG TAB PO SCH (08:12)
[2017-10-19] MEDS: DOCUSATE SODIUM 50 MG/SENNA 8.6 MG TAB PO SCH (08:12)
[2017-10-19] MEDS: ASPIRIN EC 81 MG TABEC PO SCH (08:13)
[2017-10-19] MEDS: FUROSEMIDE 40 MG TAB PO SCH (08:13)
[2017-10-19] MEDS: RIVAROXABAN 20 MG TAB PO SCH (08:13)
[2017-10-19] MEDS: INSULIN ASPART SUPPLEMENTAL SCALE SQ SCH ×2 (08:18→12:00)
[2017-10-19] MEDS ORDERED: LISINOPRIL 5 MG TAB PO SCH (09:00)
[2017-10-19 09:12] LABS: CHOLESTEROL/ HDL RATIO 3.2 RATIO; HDL CHOLESTEROL 40.9 MG/DL (40.0-60.0)
--- NOTE | 2017-10-19 15:14 | PD.CARD.PN ---
Subjective Subjective Remarks assymptomatic, feels better Objective Vital Signs / I&O Vital Signs Date Time Temp Pulse Resp B/P (MAP) Pulse Ox O2 Delivery O2 Flow Rate FiO2 10/19/17 08:04 106 10/19/17 07:59 98.2 106 18 117/93 (101) 98 10/19/17 04:56 98.0 100 14 135/93 (107) 98 10/19/17 00:25 98.3 100 16 136/87 (103) 99 10/19/17 00:00 107 10/18/17 20:12 98.0 89 14 125/70 (88) 98 10/18/17 20:00 102 10/18/17 16:38 97.4 104 18 128/81 (97) 95 I/O 10/18/17 10/18/17 10/18/17 10/19/17 10/19/17 10/19/17 07:00 15:00 23:00 07:00 15:00 23:00 Intake Total 480 ml Balance 480 ml Intake Oral 480 ml # Voids 2 1 1 # Bowel Movements 1 Physical Exam GENERAL: SKIN: Warm and dry. HEAD: Normocephalic. EYES: No scleral icterus. No injection or drainage. NECK: Supple, trachea midline. No JVD or lymphadenopathy. CARDIOVASCULAR: Regular rate and rhythm without murmurs, gallops, or rubs. RESPIRATORY: Breath sounds equal bilaterally. No accessory muscle use. GASTROINTESTINAL: Abdomen soft, non-tender, nondistended. MUSCULOSKELETAL: No cyanosis, or edema. BACK: Nontender without obvious deformity. No CVA tenderness. Laboratory Laboratory Tests Test 10/19/17 08:10 B-Type Natriuretic Peptide 499 PG/ML Triglycerides Level 120 MG/DL Cholesterol Level 131 MG/DL LDL Cholesterol 66 MG/DL HDL Cholesterol 40.9 MG/DL Cholesterol/HDL Ratio 3.20 RATIO Assessment and Plan Problem List: (1) Cardiomyopathy ICD Codes: I42.9 - Cardiomyopathy, unspecified (2) CAD (coronary artery disease) ICD Codes: I25.10 - Atherosclerotic heart disease of [place] coronary artery without angina pectoris (3) Pulmonary embolism ICD Codes: I26.99 - Other pulmonary embolism without acute cor pulmonale (4) Diabetes mellitus ICD Codes: E11.9 - Type 2 diabetes mellitus without complications (5) Elevated troponin ICD Codes: R74.8 - Abnormal levels of other serum enzymes Assessment and Plan 1.) Cardiomyopathy - continue lisinopril, coreg, lasix 2.) CAD - continue xarelto and f/u with her established laboratory technologist [facility], she should be on a stati; mild cad 06/10/17 cath, suspect trop elevation due to cardiomyopathy, assymptomatic after restarting xarelto 3.) PE - assymptomatic, continue xarelto Deesan Bradley MD Oct 19, 2017 15:14
== END 2017-10-19 13:14 | disposition home or self-care (01) ==
LOC: NED 14:05 → NEDA 22:15 → NEPHCDU 10-18 00:49
PROVIDERS: ADMIT Internal Medicine; ATTEND Internal Medicine
DX: I21.4 Non-ST elevation (NSTEMI) myocardial infarction (principal); I25.10 Atherosclerotic heart disease of native coronary artery without angina pectoris; D15.1 Benign neoplasm of heart; I11.0 Hypertensive heart disease with heart failure; I50.9 Heart failure, unspecified; I42.9 Cardiomyopathy, unspecified; E11.65 Type 2 diabetes mellitus with hyperglycemia; D64.9 Anemia, unspecified; Z79.4 Long term (current) use of insulin; Z86.711 Personal history of pulmonary embolism; Z79.01 Long term (current) use of anticoagulants; Z79.899 Other long term (current) drug therapy; Z79.82 Long term (current) use of aspirin; Z87.891 Personal history of nicotine dependence; Z91.14 Patient's other noncompliance with medication regimen
CPT/HCPCS: 71046; 71275; 80048; 80053; 80061; 82550; 82552; 82948; 83690; 83735; 83880; 84484; 85025; 85610; 85730; 93005; 99285; G0378; J1815; Q9967

== ENCOUNTER 2017-12-28 23:00 | Observation (INO) | payer OTHER ==
[~2017-12-28 23:00] MED LIST changes: -LEVA750T9 PO; +LIPI10TA PO; +LISI-519 PO; -XARE15TA PO
[2017-12-28] MEDS ORDERED: ACETAMINOPHEN 325 MG TAB PO PRN (23:45)
[2017-12-28] MEDS ORDERED: SODIUM CHLORIDE 0.9% FLUSH 10 ML FLUSH IV FLUSH PRN (23:45)
[2017-12-28] MEDS ORDERED: NALOXONE HCL 0.4 MG/ML AMP IV PUSH PRN (23:45)
[2017-12-29] MEDS: HEPARIN SODIUM - SQ 10,000 UNITS/ML VIAL SQ SCH ×2 (00:10→08:36)
[2017-12-29 00:15] VITALS: PULSE 92
[2017-12-29 00:53] VITALS: BP 105/76; PULSE 89; RESP 20; TEMP 97.2; O2SAT 96
[2017-12-29 04:29] VITALS: BP 112/81; PULSE 90; RESP 20; TEMP 97.3; O2SAT 95
[2017-12-29 04:31] LABS: BASOPHIL # 0.2 TH/MM3 (0-0.2); BASOPHIL % 2.5 % (0.0-2.0); EOSINOPHIL # 0.2 TH/MM3 (0-0.4); EOSINOPHIL % 2.5 % (0.0-4.0); HEMATOCRIT 34.5 % (35.0-46.0); HEMOGLOBIN 10.8 GM/DL (11.6-15.3); LYMPH % 18.1 % (9.0-44.0); LYMPHOCYTE # 1.8 TH/MM3 (1.0-4.8); MEAN CELL VOLUME 71.1 FL (80.0-100.0); MEAN CORPUSCULAR HEMOGLOBIN 22.3 PG (27.0-34.0); MEAN CORPUSCULAR HGB CONC 31.3 % (32.0-36.0); MEAN PLATELET VOLUME 9.3 FL (7.0-11.0); MONO % 6.9 % (0.0-8.0); MONOCYTE # 0.7 TH/MM3 (0-0.9); PLATELET COUNT 425 TH/MM3 (150-450); RED BLOOD COUNT 4.85 MIL/MM3 (4.00-5.30); RED CELL DISTRIBUTION WIDTH 17.5 % (11.6-17.2); WHITE BLOOD COUNT 9.9 TH/MM3 (4.0-11.0)
[2017-12-29 04:40] LABS: CALCIUM 8.1 MG/DL (8.5-10.1)
[2017-12-29 04:41] LABS: BICARBONATE 27.8 MEQ/L (21.0-32.0)
[2017-12-29 04:44] LABS: CREATININE 1.1 MG/DL (0.50-1.00)
[2017-12-29 05:51] LABS: OVALOCYTES 1+ (NORMAL)
[2017-12-29 08:00] VITALS: BP 123/77; PULSE 93; RESP 18; TEMP 96.9; O2SAT 100
[2017-12-29] MEDS ORDERED: SODIUM CHLORIDE 0.9% FLUSH 10 ML FLUSH IV FLUSH SCH (09:00)
[2017-12-29] MEDS ORDERED: FUROSEMIDE 20 MG/2 ML VIAL IV PUSH SCH (09:00)
--- NOTE | 2017-12-29 10:55 | HHI.DCPOC ---
Discharge Care Plan Diagnosis: (1) Acute on chronic systolic congestive heart failure (2) Cardiomyopathy (3) Elevated troponin Goals to Promote Your Health * To prevent worsening of your condition and complications * To maintain your health at the optimal level Directions to Meet Your Goals Take your medications as prescribed Follow your dietary instruction Follow activity as directed Keep your appointments as scheduled Take your immunizations and boosters as scheduled If your symptoms worsen call your PCP, if no PCP go to Urgent Care Center or Emergency Room Smoking is Dangerous to Your Health. Avoid second hand smoke Call the 24-hour hour crisis hotline for domestic abuse at Antonio Christine Dec 29, 2017 10:55
[2017-12-29] MEDS ORDERED: LISINOPRIL 5 MG TAB PO SCH (12:00)
[2017-12-29] MEDS ORDERED: CARVEDILOL 12.5 MG TAB PO SCH (12:00)
[2017-12-29] MEDS ORDERED: RIVAROXABAN 20 MG TAB PO SCH (12:00)
[2017-12-29] MEDS ORDERED: ASPIRIN EC 81 MG TABEC PO SCH (12:00)
--- NOTE | 2017-12-29 13:18 | HHI.HP ---
HPI Service [facility] Primary Care Physician Unknown Admission Diagnosis Diagnoses: (1) Acute on chronic systolic congestive heart failure Diagnosis: Principal (2) Cardiomyopathy Diagnosis: Principal (3) Elevated troponin Diagnosis: Principal Chief Complaint: Shortness of breath Travel History International Travel<30 Days: No Contact w/Intl Traveler <30 Da: No Traveled to Known Affected Are: No History of Present Illness 37-year-old female with rather unfortunate with severe nonischemic cardiomyopathy with ejection fraction 20-25%, chronic systolic congestive heart failure, chronic kidney disease stage III, chronic iron deficient anemia, history of pulmonary emboli, atrial myxoma, coronary artery disease who presented to the hospital because of shortness of breath. Patient is undergoing appropriate outpatient management for her dilated cardiomyopathy. She does have an appointment on Tuesday with a heart failure specialist. However , she cannot fill her Lasix prescription because the pharmacy that she was using was out of medications. She was without Lasix for approximately 3 days and she started developing shortness of breath, dyspnea on exertion, orthopnea. Patient was successful in obtaining the Lasix prescription 2 days ago. She was able to take 1 days worth of Lasix and she has significant improvement. Yesterday she did take her Lasix and she was improving, however her mother was concerned so her mother took her to the ER for evaluation. ER physician did evaluation and found to have elevated troponin, elevated BNP, chest x-ray showing cardiomegaly without pulmonary vascular engorgement. Is recommended by the ER physician that the patient be observed in the hospital for congestive heart failure, elevated troponin. At the time evaluating patient she is asymptomatic. His neurologic sprains any shortness of breath, she denies any chest pain, diaphoresis, abdominal pain, nausea, vomiting. Patient is requesting to go home. Review of Systems Respiratory: COMPLAINS OF: Shortness of breath Cardiovascular: COMPLAINS OF: Dyspnea on Exertion Except as stated in HPI: all other systems reviewed are Neg Past Family Social History Past Medical History Nonischemic dilated cardiomyopathy with ejection fraction 20-25% Chronic systolic congestive heart failure Coronary artery disease History of pulmonary emboli Chronic iron deficient anemia Atrial myxoma Past Surgical History Cardiac catheterization with 30% stenosis of the LAD at the midpoint FAMILIA with severely reduced ejection fraction 2025%, pedunculated mobile echodensity originating on the left atrial side of the intra-atrial septum Reported Medications Reported Meds & Active Scripts Active Lisinopril 5 Mg Tab 5 Mg PO DAILY 30 Days Xarelto (Rivaroxaban) 20 Mg Tab 20 Mg PO DAILY 30 Days Aspirin EC (Aspirin) 81 Mg Tabdr 81 Mg PO DAILY 30 Days Lasix (Furosemide) 40 Mg Tab 40 Mg PO BID Potassium Chloride ER (Potassium Chloride) 10 Meq Tab 10 Meq PO BID Reported Lipitor (Atorvastatin Calcium) 10 Mg Tab Unknown Dose PO HS Coreg (Carvedilol) 12.5 Mg Tab 25 Mg PO BID Allergies: Coded Allergies: No Known Allergies (Unverified , 12/28/17) Family History Family history reviewed and significant for mother with diabetes, father with hypertension Social History Patient quit smoking tobacco in May, prior to that she smoked 1 cigarette a day. Does drink alcohol on the weekends. Physical Exam Vital Signs Vital Signs Date Time Temp Pulse Resp B/P (MAP) Pulse Ox O2 Delivery O2 Flow Rate FiO2 12/29/17 08:00 96.9 93 18 123/77 (92) 100 12/29/17 04:29 97.3 90 20 112/81 (91) 95 12/29/17 00:53 97.2 89 20 105/76 (86) 96 12/29/17 00:15 92 Physical Exam GENERAL: Well-developed, well-nourished, in no acute distress. alert and orientated HEENT: Head is normocephalic without any lesions or masses noted. Facial features are symmetric. Eyes: Pupils equal round reactive to light. Extraocular muscles are intact. Conjunctivae were clear. Oropharyngeal: Pharynx without any erythema edema. Tongue is midline without deviation. Buccal mucosa is moist without any masses or lesions NECK: Supple without any masses. Trachea midline no deviation. No JVD, no bruits are appreciated CARDIAC: Regular rhythm, regular rate. S1/S2 are heard. No murmurs gallops or rubs. LUNGS: Clear to auscultation bilaterally. No wheeze, rhonchi or rales. No use of accessory muscles on inspiration or expiration. ABDOMEN: Soft, nontender. Nondistended. Bowel sounds heard in all 4 quadrants. No organomegaly or masses. Negative rebound, negative guarding EXTREMITIES: No edema, pulses are equal bilaterally. No cyanosis or clubbing NEUROLOGY: Mood and affect appear appropriate. Cranial nerves II through XII grossly intact. Muscle strength 5/5 in upper and lower extremities bilaterally. Deep tendon reflexes are 2+ in upper and lower extremities bilaterally. Laboratory Laboratory Tests Test 12/28/17 22:10 12/29/17 04:20 Total Creatine Kinase 174 140 White Blood Count 9.9 Red Blood Count 4.85 Hemoglobin 10.8 Hematocrit 34.5 Mean Corpuscular Volume 71.1 Mean Corpuscular Hemoglobin 22.3 Mean Corpuscular Hemoglobin Concent 31.3 Red Cell Distribution Width 17.5 Platelet Count 425 Mean Platelet Volume 9.3 Neutrophils (%) (Auto) 70.0 Lymphocytes (%) (Auto) 18.1 Monocytes (%) (Auto) 6.9 Eosinophils (%) (Auto) 2.5 Basophils (%) (Auto) 2.5 Neutrophils # (Auto) 7.0 Lymphocytes # (Auto) 1.8 Monocytes # (Auto) 0.7 Eosinophils # (Auto) 0.2 Basophils # (Auto) 0.2 CBC Comment AUTO DIFF Differential Comment AUTO DIFF CONFIRMED Ovalocytes 1+ Blood Urea Nitrogen 15 Creatinine 1.10 Random Glucose 151 Calcium Level 8.1 Sodium Level 141 Potassium Level 3.6 Chloride Level 106 Carbon Dioxide Level 27.8 Anion Gap 7 Estimat Glomerular Filtration Rate 67 Troponin I 0.46 Result Diagram: 12/29/1741912/29/17419 Caprini VTE Risk Assessment Caprini VTE Risk Assessment: Mod/High Risk (score >= 2) Caprini Risk Assessment Model Point Value = 1 Point Value = 2 Point Value = 3 Point Value = 5 Age 41-60 Minor surgery BMI > 25 kg/m2 Swollen legs Varicose veins or History of unexplained or recurrent spontaneous Oral contraceptives or hormone replacement Sepsis (< 1 month) Serious lung disease, including pneumonia (< 1 month) Abnormal pulmonary function Acute myocardial infarction Congestive heart failure (< 1 month) History of inflammatory bowel disease Medical patient at bed rest Age 61-74 Arthroscopic surgery Major open surgery (> 45 min) Laparoscopic surgery (> 45 min) Malignancy Confined to bed (> 72 hours) Immobilizing plaster cast Central venous access Age >= 75 History of VTE Family history of VTE Factor V Leiden Prothrombin [id number] Lupus anticoagulant Anticardiolipin antibodies Elevated serum homocysteine Heparin-induced thrombocytopenia Other congenital or acquired thrombophilia Stroke (< 1 month) Elective arthroplasty Hip, pelvis, or leg fracture Acute spinal cord injury (< 1 month) Prophylaxis Regimen Total Risk Factor Score Risk Level Prophylaxis Regimen 0-1 Low Early ambulation 2 Moderate Order ONE of the following: *Sequential Compression Device (SCD) *Heparin 5000 units SQ BID 3-4 Higher Order ONE of the following medications: *Heparin 5000 units SQ TID *Enoxaparin/Lovenox 40 mg SQ daily (WT < 150 kg, CrCl > 30 mL/min) *Enoxaparin/Lovenox 30 mg SQ daily (WT < 150 kg, CrCl > 10-29 mL/min) *Enoxaparin/Lovenox 30 mg SQ BID (WT < 150 kg, CrCl > 30 mL/min) AND/OR *Sequential Compression Device (SCD) 5 or more Highest Order ONE of the following medications: *Heparin 5000 units SQ TID (Preferred with Epidurals) *Enoxaparin/Lovenox 40 mg SQ daily (WT < 150 kg, CrCl > 30 mL/min) *Enoxaparin/Lovenox 30 mg SQ daily (WT < 150 kg, CrCl > 10-29 mL/min) *Enoxaparin/Lovenox 30 mg SQ BID (WT < 150 kg, CrCl > 30 mL/min) AND *Sequential Compression Device (SCD) Assessment and Plan Assessment and Plan Acute on chronic systolic congestive heart failure, improved -This is secondary to patient being without her diuretic for 3 days prior to resuming her medications -Patient currently asymptomatic, she is much improved after restarting her Lasix and given IV Lasix by the emergency department -Extensive review of her medical records with previous cardiology evaluations, consultations, catheterizations, echocardiograms, FAMILIA -Patient does have an appointment in 3 days with a heart failure specialist in [place], -Laboratory studies did indicate a chronically elevated troponin level, acute on chronic elevation of BNP, which has been indicated by past evaluation related to her severe nonischemic cardiomyopathy -Chest x-ray does show moderate cardiomegaly without any pulmonary vascular congestion, patient is without any lower extremity edema -Diuresis has been continued -Patient continued on Coreg, lisinopril Hypertension, hyperlipidemia, coronary artery disease, chronically elevated troponin level, severe nonischemic cardiomyopathy, history of pulmonary emboli -Home medications have been continued -Patient continued on aspirin, beta-jacquelyn, CAMRON inhibitor, statin -Xarelto continued for anticoagulation -Records indicate that patient is not a candidate for AICD/LifeVest at this time due to previous cardiac consultation recommending full maximum medical management, -Patient is still undergoing medication management by outpatient director channel, does have an appointment with a heart failure specialist in 3 days DVT prevention -Patient currently on Xarelto Discharge disposition Discharge home in stable condition Activity: Ad citlali. Diet: Healthy heart diet Medication per medication reconciliation Follow-up with primary medical doctor in 1 week Antonio Christine Dec 29, 2017 13:18
--- NOTE | 2017-12-29 15:25 | EKG ---
Date Performed: 12/29/2017 Time Performed: 03:34:51 PTAGE: 37 years EKG: Sinus rhythm POSSIBLE LEFT ATRIAL ENLARGEMENT NONSPECIFIC T-WAVE ABNORMALITY BORDERLINE ECG Since the PREVIOUS TRACING , no significant change noted PREVIOUS TRACIN12/28/2017 @2213 DOCTOR: Tina Zaragoza Interpretating Date/Time 12/29/2017 15:24:00
[2017-12-29] MEDS ORDERED: POTASSIUM CHLORIDE 10 MEQ CONTROLLED RELEASE TAB PO SCH (21:00)
[2017-12-29] MEDS ORDERED: FUROSEMIDE 40 MG TAB PO SCH (21:00)
== END 2017-12-29 13:33 | disposition home or self-care (01) ==
LOC: PHEDDLT 23:00 → INTOOBSV 23:10 → PH3A 23:10
PROVIDERS: ADMIT Family Medicine; ATTEND Family Medicine
DX: I50.23 Acute on chronic systolic (congestive) heart failure (principal); I42.0 Dilated cardiomyopathy; R74.8 Abnormal levels of other serum enzymes; I13.0 Hypertensive heart and chronic kidney disease with heart failure and stage 1 through stage 4 chronic kidney disease, or unspecified chronic kidney disease; N18.3 Chronic kidney disease, stage 3 (moderate); I25.10 Atherosclerotic heart disease of native coronary artery without angina pectoris; D50.9 Iron deficiency anemia, unspecified; D15.1 Benign neoplasm of heart; R06.00 Dyspnea, unspecified; Z86.711 Personal history of pulmonary embolism
CPT/HCPCS: 71046; 80048; 82550; 82552; 83735; 83880; 84484; 84702; 85025; 85610; 85730; 93005; 96372; 96374; 99285; G0378; J1644; J1940

== ENCOUNTER 2018-02-02 00:19 | Inpatient (IN) ==
--- NOTE | 2018-02-02 11:57 | P.HPIM ---
History of Present Illness Primary Care Physician: No Primary Care Physician History of Present Illness: Mrs. Alvarenga is a 38-year-old female. She came in the hospital due to a 10 pound weight gain in the past week and chest pain which was affecting her bilateral lower lateral rib cage. Cardiac enzymes were evaluated and patient has an elevation of troponin at 0.46. When seen in her room her chest pain has subsided and she has no new complaints. No nausea or vomiting. No lightheadedness. No abnormal heart rhythms. She does not have any recent history of a viral illness. 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 Does drink alcohol on the weekends. Inpatient Certification: I certify that the inpatient services were ordered in accordance with Medicare regulations governing the order. This includes certification that hospital inpatient services are reasonable and necessary and in the case of services not specified as inpatient-only under 42 CFR 419.22(n), that they are appropriately provided as inpatient services in accordance to with the 2-midnight benchmark under 43 CFR 412.3(e) Estimated Total Length of Stay (Days): 3 Plans for Post Hospital Care: Home Review of Systems Constitutional: Denies body ache(s), Denies chills, Denies fever(s), Denies night sweats Eyes: Denies blind spots, Denies blurry vision, Denies bulging eyes Ears, Nose, Mouth, and Throat: Denies abnormal hearing, Denies ear pain, Denies nasal discharge Cardiovascular: Reports chest pain, Reports chest pain at rest, Reports chest pain with activity, Denies irregular heart rhythm Respiratory: Denies cough, Denies shortness of breath, Denies wheezing Gastrointestinal: Denies abdominal pain, Denies black, tarry stools, Denies bloating Musculoskeletal: Denies abnormal walking, Denies back pain, Denies body aches Skin/Breast: Denies rash, Denies skin pain, Denies skin ulcer Neurologic: Denies abnormal hearing, Denies abnormal movements, Denies abnormal speech PMFSH - History History Provided By: Patient - Medical History Medical History: Medical History (Last Updated 02/02/18 @ 02:14 by Shanta Gray) CHF (congestive heart failure) High blood pressure - Surgical History Surgical History: Surgical History (Last Updated 02/02/18 @ 11:52 by Julio Wang MD) H/O right heart catheterization - Family History Family History: Family History (Last Updated 02/02/18 @ 11:53 by Julio Wang MD) Grandparent Arrhythmia Coronary artery disease - Tobacco History Second Hand Smoke Exposure: No Smoking Status: Never smoker - Alcohol History How Often Do You Have a Drink Containing Alcohol: 2 to 4 times a month - Substance Use History Substance History: No History of Abuse Medications and Allergies Active Medications: Active Medications Al Hydroxide/Mg Hydroxide (Milk Of Magnesia Liq) 30 ml PO Q12H PRN PRN Reason: Mild Constipation Aspirin (Aspirin Chew) 81 mg PO DAILY [facility] Atorvastatin Calcium (Lipitor) 20 mg PO DAILY RACHELLE Furosemide (Lasix Inj) 20 mg IV.PUSH BID@0900,1800 RACHELLE Furosemide (Lasix Inj) 20 mg IV.PUSH ONCE ONE Stop: 02/02/18 11:49 Lisinopril (Prinivil) 5 mg PO DAILY [facility] Non-Formulary Medication (Carvedilol [Carvedilol]) 25 mg PO BID RACHELLE Rivaroxaban (Xarelto) 20 mg PO DAILY RACHELLE Sennosides (Senokot) 17.2 mg PO Q12H PRN PRN Reason: Moderate Constipation Allergies Allergy/AdvReac Type Severity Reaction Status Date / Time No Known Allergies Allergy Verified 02/02/18 02:10 Home Medications Medication Instructions Recorded Confirmed Type aspirin 81 mg PO DAILY 02/02/18 02/02/18 History atorvastatin 20 mg PO DAILY 02/02/18 02/02/18 History carvedilol 25 mg PO BID 02/02/18 02/02/18 History lisinopril 5 mg PO DAILY 02/02/18 02/02/18 History rivaroxaban [Xarelto] 02/02/18 History torsemide 20 mg PO DAILY 02/02/18 02/02/18 History Exam Narrative: GENERAL: NAD, A&Ox3 HEAD: Normocephalic. NECK: Supple, trachea midline. No lymphadenopathy. EYES: No scleral icterus. No injection or drainage. CARDIOVASCULAR: Regular rate and rhythm without murmurs, gallops, or rubs. RESPIRATORY: Breath sounds equal bilaterally. No accessory muscle use. GASTROINTESTINAL: Abdomen soft, non-tender, nondistended. MUSCULOSKELETAL: No cyanosis, or edema. SKIN: Warm and dry. NEURO: No focal neurological deficits. Caprini VTE Risk Assessment Caprini VTE Risk Assessment: Moderate/High Risk (score >= 2) Caprini Risk Assessment Model: Point Value = 1 Point Value = 2 Point Value = 3 Point Value = 5 Age 41-60 Minor surgery BMI > 25 kg/m2 Swollen legs Varicose veins or History of unexplained or recurrent spontaneous Oral contraceptives or hormone replacement Sepsis (< 1 month) Serious lung disease, including pneumonia (< 1 month) Abnormal pulmonary function Acute myocardial infarction Congestive heart failure (< 1 month) History of inflammatory bowel disease Medical patient at bed rest Age 61-74 Arthroscopic surgery Major open surgery (> 45 min) Laparoscopic surgery (> 45 min) Malignancy Confined to bed (> 72 hours) Immobilizing plaster cast Central venous access Age >= 75 History of VTE Family history of VTE Factor V Leiden Prothrombin [id number] Lupus anticoagulant Anticardiolipin antibodies Elevated serum homocysteine Heparin-induced thrombocytopenia Other congenital or acquired thrombophilia Stroke (< 1 month) Elective arthroplasty Hip, pelvis, or leg fracture Acute spinal cord injury (< 1 month) Prophylaxis Regimen: Total Risk Factor Score Risk Level Prophylaxis Regimen 0-1 Low Early ambulation 2 Moderate Order ONE of the following: *Sequential Compression Device (SCD) *Heparin 5000 units SQ BID 3-4 Higher Order ONE of the following medications: *Heparin 5000 units SQ TID *Enoxaparin/Lovenox 40 mg SQ daily (WT < 150 kg, CrCl > 30 mL/min) *Enoxaparin/Lovenox 30 mg SQ daily (WT < 150 kg, CrCl > 10-29 mL/min) *Enoxaparin/Lovenox 30 mg SQ BID (WT < 150 kg, CrCl > 30 mL/min) AND/OR *Sequential Compression Device (SCD) 5 or more Highest Order ONE of the following medications: *Heparin 5000 units SQ TID (Preferred with Epidurals) *Enoxaparin/Lovenox 40 mg SQ daily (WT < 150 kg, CrCl > 30 mL/min) *Enoxaparin/Lovenox 30 mg SQ daily (WT < 150 kg, CrCl > 10-29 mL/min) *Enoxaparin/Lovenox 30 mg SQ BID (WT < 150 kg, CrCl > 30 mL/min) AND *Sequential Compression Device (SCD) Assessment and Plan - Plan 38-year-old female admitted secondary to chest pain in the presence of fluid overload related to CHF. Chest pain Nonischemic dilated cardiomyopathy Coronary artery disease Etiology may be related to CHF exacerbation Treat CHF Most recent ejection fraction is 20-25% evaluate for ACS Follow cardiac enzymes Aspirin daily When necessary oxygen When necessary morphine for pain. When necessary nitroglycerin Follow on telemetry Cardiology consult Acute systolic congestive heart failure on chronic systolic CHF exacerbation IV diuresis Monitor renal function Oxygen as needed Follow clinically for improvement Follow on telemetry History of pulmonary embolus History of atrial myxoma Continue Xarelto DVT prophylaxis Xarelto
[2018-02-02] MEDS ORDERED: Acetaminophen 500 MG Tablet PO PRN (12:12)
[2018-02-02 15:06] LABS: Troponin I 0.48 ng/mL (0.02-0.05)
[2018-02-02] MEDS: Carvedilol 12.5 MG Tablet PO SCH (22:13)
[2018-02-02 23:32] LABS: Troponin I 0.53 ng/mL (0.02-0.05)
[2018-02-03] MEDS ORDERED: Lisinopril 5 MG Tablet PO SCH (09:00)
[2018-02-03] MEDS ORDERED: Rivaroxaban 20 MG Tablet PO SCH (09:00)
[2018-02-03] MEDS: Carvedilol 12.5 MG Tablet PO SCH (09:11)
[2018-02-03 09:15] LABS: Baso # (Auto) 0.1 th/mm3 (0.0-0.2); Baso % (Auto) 0.6 % (0.0-2.0); Eos # (Auto) 0.2 th/mm3 (0.0-0.4); Eos % (Auto) 2.7 % (0.0-4.0); Hematocrit 30.3 % (35.0-46.0); Hemoglobin 9.1 gm/dL (11.6-15.3); Lymph % (Auto) 22.1 % (9.0-44.0); Mean Corpuscular Hemoglobin 20.6 pg (27.0-34.0); Mean Corpuscular Volume 68.4 fL (80.0-100.0); Mean Platelet Volume 8.5 fL (7.0-11.0); Mono # (Auto) 0.7 th/mm3 (0.0-0.9); Mono % (Auto) 8.1 % (0.0-8.0); Neut # (Auto) 5.9 th/mm3 (1.8-7.7); Neut % (Auto) 66.5 % (16.0-70.0); Platelet Count 349 th/mm3 (150-450); Red Blood Count 4.44 mil/mm3 (4.00-5.30); Red Cell Distribution Width 17.8 % (11.6-17.2); White Blood Count 8.9 th/mm3 (4.0-11.0)
[2018-02-03 09:32] LABS: Albumin 3.4 g/dL (3.4-5.0); Anion Gap 10 meq/L (5-15); Aspartate Aminotransferase 17 U/L (15-37); Blood Urea Nitrogen 10 mg/dL (7-18); Calcium 8.7 mg/dL (8.5-10.1); Carbon Dioxide 24.2 meq/L (21.0-32.0); Chloride 108 meq/L (98-107); Glomerular Filtration Rate 64 mL/min (>89); Glucose,Random 104 mg/dL (74-106); Potassium 3.5 meq/L (3.5-5.1); Sodium 142 meq/L (136-145)
[2018-02-03 09:35] LABS: Alanine Aminotransferase 26 U/L (10-53); Alkaline Phosphatase 81 U/L (45-117); C-Reactive Protein 0.72 mg/dL (0.00-0.30)
[2018-02-03 10:01] LABS: Mean Corpuscular HGB Conc 30.1 % (32.0-36.0)
--- NOTE | 2018-02-03 12:16 | MB ---
cc: Karlos Manzanares MD DATE: 02/03/2018 INDICATION FOR CARDIAC CONSULTATION: Elevated troponin, congestive heart failure. HISTORY OF PRESENT ILLNESS: This is a very nice 38-year-old female who I know from several hospitalizations over the course of the past year or two. The patient now presents with acute on chronic systolic congestive heart failure. She reports a 10-pound weight gain in addition to bilateral lower extremity edema. She had recently been switched from Lasix to torsemide by her job coach in [place]. She had run out of the torsemide and had difficulty getting it refilled, so she was not on any diuretic therapy for about 2 days, when she started developing symptoms. She was initiated back on diuretic therapy here in the hospital since yesterday and symptomatically feels much better. Her troponin is mildly elevated at 0.46. Denies any chest pain. No electrocardiographic changes. Her cardiomyopathy is nonischemic. She is being evaluated for potential transplant consideration. PAST MEDICAL HISTORY: 1. Nonischemic dilated cardiomyopathy with an ejection fraction of 20-25%. 2. Minimal nonobstructive coronary disease. 3. Chronic systolic congestive heart failure. 4. History of pulmonary embolism. 5. History of chronic iron deficiency anemia. 6. History of atrial myxoma noted on transesophageal echocardiogram. This is being followed by [facility]; they feel at this point that she is not a candidate for surgical resection. FAMILY HISTORY: Denies any family history of early coronary disease or sudden cardiac . SOCIAL HISTORY: Denies any alcohol or drug use. Very rare remote tobacco use. REVIEW OF SYSTEMS: A 12-point review of systems was performed, negative unless otherwise noted in history of present illness. PHYSICAL EXAMINATION: VITAL SIGNS: Temperature 98, pulse is 75, blood pressure 140/93 mmHg. GENERAL: She is alert and oriented x 3, in no acute distress. HEENT: Shows pupils are reactive to light and accommodation. Extraocular movements intact. NECK: No elevation of jugular venous distention. No thyromegaly. No lymphadenopathy. No carotid bruits. LUNGS: Clear to auscultation bilaterally. CARDIOVASCULAR: Regular rate and rhythm without murmurs, rubs or gallops. ABDOMEN: Nontender, nondistended with good bowel sounds. No hepatosplenomegaly. EXTREMITIES: Show no clubbing, cyanosis or edema. Good peripheral pulses. NEUROLOGIC: Cranial nerves intact. Gross sensory grossly intact. LABORATORY DATA: WBC 8.9, hemoglobin is 9.1, platelet count is 349. Sodium 142, potassium 3.5, BUN is 10, creatinine is 1.15. Troponin 0.48 and 0.53. ASSESSMENT: 1. Nonischemic cardiomyopathy. 2. Atrial myxoma. 3. Acute on chronic systolic congestive heart failure. 4. Elevated troponin. PLAN: The patient symptomatically is doing much better and well compensated. She has been instructed to minimize salt and resume diuretic therapy. She is on a good medical regimen with guideline directed medical therapy. She will continue with her current medications. She already has a scheduled appointment in the next few weeks with [facility]. She is okay for discharge from a cardiovascular perspective. She can followup as an outpatient with her job coach in [place]. MD YANICK Mays/HAYLEE , 11:54 AM , 12:14 PM
--- NOTE | 2018-02-03 12:30 | P.DS ---
Date of admission: 02/02/18 09:12 Primary care physician: No Primary Care Physician Brief History from admission: Mrs. Alvarenga is a 38-year-old female. She came in the hospital due to a 10 pound weight gain in the past week and chest pain which was affecting her bilateral lower lateral rib cage. Cardiac enzymes were evaluated and patient has an elevation of troponin at 0.46. When seen in her room her chest pain has subsided and she has no new complaints. No nausea or vomiting. No lightheadedness. No abnormal heart rhythms. She does not have any recent history of a viral illness. 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 Does drink alcohol on the weekends. DS: Summary Hospital Course: Mrs. Anthony is a 38-year-old female. She has CHF and coronary artery disease at baseline. She was admitted secondary to chest pain and an elevated troponin. Troponins were monitored through time and have remained stable. Symptoms of chest pain have resolved. Patient has relatively recent cardiac workups so further workup is not necessary. She has been evaluated by cardiology and they have cleared this patient for discharge to home with resumption of prior home treatments. At this point patient is medically stable and cleared for discharge home. - Time Spent with Patient Total time spent providing and/or coordinating discharge services: - Quality: VTE Deep Vein Thrombosis/Pulmonary Embolism Present on Admission: Yes Exam Vital signs: Vital Signs 02/02/18 16:00 02/02/18 20:00 02/03/18 00:00 Temperature 97.9 F 98.0 F 98.1 F Pulse Rate 105 H 100 H 75 Respiratory Rate 20 18 14 Blood Pressure 117/73 120/64 108/57 L Pulse Oximetry 98 95 95 02/03/18 04:00 02/03/18 08:00 Temperature 98.9 F 97.9 F Pulse Rate 16 L 87 Respiratory Rate 16 20 Blood Pressure 138/97 H 132/84 Pulse Oximetry 97 98 Intake & Output 02/02/18 02/03/18 02/03/18 18:59 06:59 18:59 Intake Total 200 / 200 Balance 200 / 200 Weight 114.2 kg Intake: Oral 200 / 200 Other: # Bowel Movements 1 Weight On Admission 113.8 kg Results Procedures completed during hospitalization: none Labs on day of discharge: Labs from last 24 hours 02/03/18 02/03/18 02/03/18 07:35 07:35 07:35 WBC 8.9 RBC 4.44 Hgb 9.1 L Hct 30.3 L MCV 68.4 L D MCH 20.6 L MCHC 30.1 L RDW 17.8 H Plt Count 349 MPV 8.5 Neut % (Auto) 66.5 Lymph % (Auto) 22.1 [place] % (Auto) 8.1 H Eos % (Auto) 2.7 Baso % (Auto) 0.6 Neut # (Auto) 5.9 Lymph # (Auto) 2.0 [place] # (Auto) 0.7 Eos # (Auto) 0.2 Baso # (Auto) 0.1 WBC Differential . Differential Comment Auto diff final ESR 18 Sodium Potassium Chloride Carbon Dioxide Anion Gap BUN Creatinine Estimated GFR Random Glucose Calcium Total Bilirubin AST ALT Alkaline Phosphatase Total Creatine Kinase Troponin I C-Reactive Protein Total Protein Albumin Rheumatoid Factor Scrn Rheumatoid Factor Titer HERVE Screen Pending 02/03/18 02/02/18 02/02/18 07:05 22:42 13:53 WBC RBC Hgb Hct MCV MCH MCHC RDW Plt Count MPV Neut % (Auto) Lymph % (Auto) [place] % (Auto) Eos % (Auto) Baso % (Auto) Neut # (Auto) Lymph # (Auto) [place] # (Auto) Eos # (Auto) Baso # (Auto) WBC Differential Differential Comment ESR Sodium 142 Potassium 3.5 Chloride 108 H Carbon Dioxide 24.2 Anion Gap 10 BUN 10 Creatinine 1.15 H Estimated GFR 64 L Random Glucose 104 Calcium 8.7 Total Bilirubin 0.5 AST 17 ALT 26 Alkaline Phosphatase 81 Total Creatine Kinase 150 153 Troponin I 0.53 H 0.48 H C-Reactive Protein 0.72 H Total Protein 7.0 Albumin 3.4 Rheumatoid Factor Scrn Negative Rheumatoid Factor Titer Not Reportable HERVE Screen Discharge Plan - Discharge Disposition Patient Disposition: 01 Discharge Home - Discharge Condition Condition: Stable - Discharge Order Discharge Orders: Discharge Order (Routine); Ordered 02/03/18 Ordered By: Julio Wang Cardiology Clear for Discharge (Routine); Ordered 02/03/18 Ordered By: Karlos Manzanares - Physicians Team Primary Care Provider: Primary Care Brittany Carpenter Attending Provider: Julio Wang Other Providers: Karlos Manzanares MD - Rxs /Orders / Referrals /Forms Prescriptions: Continue aspirin 81 mg Tablet,Chewable 81 mg PO DAILY atorvastatin 20 mg Tablet 20 mg PO DAILY carvedilol 25 mg Tablet 25 mg PO BID lisinopril 5 mg Tablet 5 mg PO DAILY rivaroxaban [Xarelto] 20 mg Tablet torsemide 20 mg Tablet 20 mg PO DAILY Referrals: Primary Care Brittany Carpenter [Primary Care Provider] - See Instructions
--- NOTE | 2018-02-03 17:49 | ECG ---
Date Performed: 02/02/2018 Time Performed: 16:48:24 PTAGE: 38 years EKG: SINUS TACHYCARDIA POSSIBLE LEFT ATRIAL ENLARGEMENT NONSPECIFIC T-WAVE ABNORMALITY ABNORMAL RHYTHM ECG PREVIOUS TRACING : 02/02/2018 11.13 Since the previous tracing, no significant change noted DOCTOR: Quinn Whelan Interpretating Date/Time 02/03/2018 17:48:30
--- NOTE | 2018-02-03 18:09 | ECG ---
Date Performed: 02/02/2018 Time Performed: 11:13:47 PTAGE: 38 years EKG: SINUS TACHYCARDIA POSSIBLE LEFT ATRIAL ENLARGEMENT ABNORMAL RHYTHM ECG PREVIOUS TRACING : 12/29/2017 03.34 COMPARED WITH PREVIOUS TRACING NO SIGNIFICANT CHANGE DOCTOR: Quinn Whelan Interpretating Date/Time 02/03/2018 18:08:13
== END 2018-02-03 02:45 | disposition home or self-care (01) ==
LOC: NEDDLT 00:19 → N05 09:12
PROVIDERS: ADMIT Hospitalist; ATTEND Hospitalist

== ENCOUNTER 2018-09-16 20:42 | Inpatient (IN) ==
[2018-09-17] MEDS ORDERED: Dextrose 50% in Water 50 ML Vial IV.PUSH PRN (06:04)
[2018-09-17] MEDS ORDERED: Bisacodyl 10 MG Supp RECTAL PRN (06:05)
--- NOTE | 2018-09-17 07:37 | CT ---
EXAM DATE: 09/17/2018 7:20 AM EST AGE/SEX: 38 years / Female INDICATIONS: Chest pain. Elevated d-dimer. CLINICAL DATA: This is the patient's initial encounter. Patient reports that signs and symptoms have been present for 1 day and indicates a pain score of 4/10. MEDICAL/SURGICAL HISTORY: Congestive heart failure. Hypertension. Angioplasty. Heart catherization . RADIATION DOSE: 18.69 CTDI (mGy) ; Patient body habitus COMPARISON: [facility] [place], CT PULMONARY ANGIOGRAM, 10/17/2017. . TECHNIQUE: Volumetric scanning was performed using a multi-row detector CT scanner during bolus infu keila of 100 ml Visipaque 320 (iodixanol) nonionic water-soluble contrast as a single exam dose. The data was post processed with a variety of visualization algorithms including full volume maximum inte nsity projection and sliding thin slab reformation. Using automated exposure control and adjustment o f the mA and/or kV according to patient size, radiation dose was kept as low as reasonably achievable to obtain optimal diagnostic quality images. DICOM format image data is available electronically fo r review and comparison. FINDINGS: Pulmonary Arteries: Minimal parenchymal changes are present in the left base with some peribronchial thickening. There is no pleural effusion. Bolus is suboptimal. There is no evidence of pulmonary emboli on the left. On the right there is a single slice that shows what appears be a filling defect in the right lower l obe pulmonary artery, small in size. Image 67 series 605 This could be an isolated small embolus. Correlation venous Dopplers and clinical exam may be of bene fit to include or exclude this diagnosis. There is no mediastinal adenopathy. There are no coronary calcifications. Upper abdominal contents visualized unremarkable. There is no pericardial effusion. . CONCLUSION: 1. Inconclusive for pulmonary embolism, single slice shows what appears to be a small filling defect in right lower lobe pulmonary artery. 2. Minimal parenchymal changes left base that could be early airspace disease. Electronically signed by: Deven Haynes MD Board Certified Radiologist 09/17/2018 7:36 AM EST
[2018-09-17] MEDS: Rivaroxaban 20 MG Tablet PO SCH (09:04)
--- NOTE | 2018-09-17 09:39 | ECG ---
Date Performed: 09/17/2018 Time Performed: 07:42:54 PTAGE: 38 years EKG: Sinus rhythm Anterior T wave changes are nonspecific Borderline ECG Compared to PREVIOUS TRACING , rate slower DOCTOR: Cristian Power Interpretating Date/Time 09/17/2018 09:39:23
[2018-09-17] MEDS: Insulin NovoLOG Aspart Correctional Sugar Inj SQ SCH ×4 (09:53→20:28)
[2018-09-17] MEDS: Senna/Docusate Sodium 8.6/50 MG Tablet PO SCH ×2 (09:54→21:06)
[2018-09-17 10:24] LABS: Troponin I 0.28 ng/mL (0.02-0.05)
[2018-09-17 10:36] LABS: CKMB Percent 0.3 % (0.0-4.0); Creatine Kinase MB 1.2 ng/mL (0.5-3.6)
[2018-09-17] MEDS: Folic Acid 1 MG Tablet PO SCH (11:08)
[2018-09-17] MEDS: Carvedilol 12.5 MG Tablet PO SCH ×2 (11:08→21:03)
[2018-09-17] MEDS: guaiFENesin/Codeine Syrup 200 MG/20 MG 10 ML UDC PO PRN ×3 (11:13→21:02)
--- NOTE | 2018-09-17 11:19 | P.HPIM ---
History of Present Illness Primary Care Physician: Chuck Soriano DO Chief Complaint: Cold symptoms, chest discomfort History of Present Illness: The patient is a 38-year-old female with a past medical history significant for systolic heart failure who is presenting to the hospital with cold symptoms and chest discomfort. The patient said that she developed cold symptoms about 3 days ago. She started to have nasal congestion and was coughing frequently. She did endorse yellow mucus production. She has not noticed any fevers at home. She does feel like she has associated shortness of breath. She also developed left-sided pain along the ribs beneath her left breast. She says the pain is constant at a 5 out of 10 in severity. She said the pain gets a lot worse when she coughs. She denies any prior history of pneumonia. She said she did get her flu shot this year. She says that she is on Xarelto but ran out 1 week ago because she was unable to secure another prescription. She denies any lower extremity swelling. She does endorse a feeling of tightness in her left lower extremity at times. She says her diuretics have been adjusted recently. She says she was hospitalized for a day or 2 in June for anemia but now she is on iron infusions. She also stated that she has had an EGD and colonoscopy and her corporate buyer plans on doing an MRI in the near future. She is hopeful to go home by tomorrow. Discussed with nursing. Inpatient Certification Inpatient Certification: I certify that the inpatient services were ordered in accordance with Medicare regulations governing the order. This includes certification that hospital inpatient services are reasonable and necessary and in the case of services not specified as inpatient-only under 42 CFR 419.22(n), that they are appropriately provided as inpatient services in accordance to with the 2-midnight benchmark under 43 CFR 412.3(e) Estimated Total Length of Stay (Days): 2 Plans for Post Hospital Care: Home Review of Systems Review of Systems: all other systems reviewed are negative [facility] Medical History Medical History Anemia (Acute) CHF (congestive heart failure) (Acute) Diabetes (Acute) High blood pressure (Acute) Hx pulmonary embolism (Acute) Pulmonary embolism (Acute) Surgical History Surgical History H/O right heart catheterization (Acute) History of esophagogastroduodenoscopy (EGD) (Acute) Family History Family History Grandparent Arrhythmia Coronary artery disease Other Diabetes Hypertension Social History Social History Substance History: No History of Abuse Second Hand Smoke Exposure: No Smoking Status: Never smoker How Often Do You Have a Drink Containing Alcohol: 2 to 3 times a week Medications and Allergies Allergies Allergy/AdvReac Type Severity Reaction Status Date / Time No Known Allergies Allergy Verified 09/16/18 21:58 Home Medications Medication Instructions Recorded Confirmed Type aspirin 81 mg PO DAILY 02/02/18 09/17/18 History carvedilol 37.5 mg PO BID 02/02/18 09/17/18 History rivaroxaban [Xarelto] 20 mg PO DAILY 02/02/18 09/17/18 History torsemide 40 mg PO BID 02/02/18 09/17/18 History spironolactone 25 mg PO DAILY 07/16/18 09/17/18 History folic acid 1 mg PO DAILY 09/16/18 09/17/18 History liraglutide [Victoza 2-Mykel] 0.6 mg SUBCUT DAILY 09/16/18 09/17/18 History sacubitril-valsartan [Entresto] 1 tab PO BID 09/16/18 09/17/18 History magnesium oxide 400 mg PO DAILY NEB 09/17/18 09/17/18 History torsemide 40 mg PO DAILY 09/17/18 09/17/18 History Active Medications: Active Medications Acetaminophen (Tylenol) 650 mg PO Q4H PRN PRN Reason: Temp > 100.4 Al Hydroxide/Mg Hydroxide (Milk Of Magnesia Liq) 30 ml PO Q12H PRN PRN Reason: Mild Constipation Aspirin (Aspirin Chew) 81 mg PO DAILY RACHELLE Bisacodyl (Dulcolax Supp) 10 mg RECTAL DAILY PRN PRN Reason: SEVERE CONSITIPATION Carvedilol (Coreg) 37.5 mg PO BID RACHELLE Dextrose (D50w Vial) 50 ml IV.PUSH UNSCH PRN PRN Reason: PER HYPOGLYCEMIA PROTOCOL Folic Acid (Folic Acid) 1 mg PO DAILY RACHELLE Glucagon (Glucagon Inj) 1 mg OTHER PRN PRN PRN Reason: for Hypoglycemia Protocol Guaifenesin/Codeine Phosphate (Robitussin Ac Liq) 10 ml PO Q4H PRN PRN Reason: painful cough Doxycycline Hyclate 100 mg/ (Sodium Chloride) 100 mls @ 100 mls/hr IV.SIG Q12H [facility] Insulin Aspart (Novolog Insulin Correctional Sugar Inj) 0 unit SQ ACHS AND 3AM RACHELLE; Protocol Last Admin: 09/17/18 09:53 Dose: Not Given Lactulose (Lactulose Liq) 30 ml PO DAILY PRN PRN Reason: SEVERE CONSITIPATION Rivaroxaban (Xarelto) 20 mg PO DAILY [facility] Last Admin: 09/17/18 09:04 Dose: 20 mg Sacubitril/Valsartan (Entresto 49 Mg/51 Mg) 1 tab PO BID [facility] Senna/Docusate Sodium (Matilde-Colace) 1 tab PO BID [facility] Last Admin: 09/17/18 09:54 Dose: Not Given Sennosides (Senokot) 17.2 mg PO Q12H PRN PRN Reason: Moderate Constipation Sodium Chloride (Ns Flush) 2 ml IV.FLUSH BID [facility] Last Admin: 09/17/18 09:54 Dose: Not Given Sodium Chloride (Ns Flush) 2 ml IV.FLUSH PRN PRN PRN Reason: FLUSH AFTER USING IV ACCESS Spironolactone (Aldactone) 25 mg PO DAILY [facility] Torsemide (Demadex) 40 mg PO BID [facility] Physical Exam Vital signs: Vital Signs 09/17/18 06:02 09/17/18 07:00 09/17/18 07:37 Temperature 99.3 F 99.8 F H Pulse Rate 103 H 102 H 100 H Respiratory Rate 22 20 Blood Pressure 151/98 H 144/94 H Pulse Oximetry 96 98 09/17/18 08:00 09/17/18 09:00 09/17/18 10:00 Temperature Pulse Rate 96 H 102 H 106 H Respiratory Rate Blood Pressure Pulse Oximetry Intake & Output 09/16/18 09/17/18 09/17/18 18:59 06:59 18:59 Intake Total 100 / 100 Balance 100 / 100 Weight 572 kg Intake: IV 100 / 100 Rocephin Inj 1,000 MG In NS Inj 100 / 100 100 ML @ 200 mls/hr IV.SIG Q24H [facility] Rx#:[id number] Other: Date of Last Bowel Movement 09/16/18 Weight On Admission 572 kg Narrative: GENERAL: No distress. SKIN: Focused skin assessment warm/dry. HEAD: Atraumatic. Normocephalic. EYES: Pupils equal and round. No scleral icterus. No injection or drainage. ENT: No nasal bleeding or discharge. Mucous membranes pink and moist. NECK: Trachea midline. No JVD. CARDIOVASCULAR: Tachycardic. No murmur appreciated. RESPIRATORY: Decreased breath sounds at the left base. GASTROINTESTINAL: Abdomen soft, non-tender, nondistended. Hepatic and splenic margins not palpable. MUSCULOSKELETAL: No obvious deformities. No clubbing. No cyanosis. No edema. NEUROLOGICAL: Awake and alert. No obvious cranial nerve deficits. Motor grossly within normal limits. Normal speech. PSYCHIATRIC: Appropriate mood and affect; insight and judgment normal. Results Imaging Impressions Chest CTA 09/17/18 00:00 CONCLUSION: 1. Inconclusive for pulmonary embolism, single slice shows what appears to be a small filling defect in right lower lobe pulmonary artery. 2. Minimal parenchymal changes left base that could be early airspace disease. Caprini VTE Risk Assessment Caprini VTE Risk Assessment: Moderate/High Risk (score >= 2) Caprini Risk Assessment Model: Point Value = 1 Point Value = 2 Point Value = 3 Point Value = 5 Age 41-60 Minor surgery BMI > 25 kg/m2 Swollen legs Varicose veins or History of unexplained or recurrent spontaneous Oral contraceptives or hormone replacement Sepsis (< 1 month) Serious lung disease, including pneumonia (< 1 month) Abnormal pulmonary function Acute myocardial infarction Congestive heart failure (< 1 month) History of inflammatory bowel disease Medical patient at bed rest Age 61-74 Arthroscopic surgery Major open surgery (> 45 min) Laparoscopic surgery (> 45 min) Malignancy Confined to bed (> 72 hours) Immobilizing plaster cast Central venous access Age >= 75 History of VTE Family history of VTE Factor V Leiden Prothrombin [id number] Lupus anticoagulant Anticardiolipin antibodies Elevated serum homocysteine Heparin-induced thrombocytopenia Other congenital or acquired thrombophilia Stroke (< 1 month) Elective arthroplasty Hip, pelvis, or leg fracture Acute spinal cord injury (< 1 month) Prophylaxis Regimen: Total Risk Factor Score Risk Level Prophylaxis Regimen 0-1 Low Early ambulation 2 Moderate Order ONE of the following: *Sequential Compression Device (SCD) *Heparin 5000 units SQ BID 3-4 Higher Order ONE of the following medications: *Heparin 5000 units SQ TID *Enoxaparin/Lovenox 40 mg SQ daily (WT < 150 kg, CrCl > 30 mL/min) *Enoxaparin/Lovenox 30 mg SQ daily (WT < 150 kg, CrCl > 10-29 mL/min) *Enoxaparin/Lovenox 30 mg SQ BID (WT < 150 kg, CrCl > 30 mL/min) AND/OR *Sequential Compression Device (SCD) 5 or more Highest Order ONE of the following medications: *Heparin 5000 units SQ TID (Preferred with Epidurals) *Enoxaparin/Lovenox 40 mg SQ daily (WT < 150 kg, CrCl > 30 mL/min) *Enoxaparin/Lovenox 30 mg SQ daily (WT < 150 kg, CrCl > 10-29 mL/min) *Enoxaparin/Lovenox 30 mg SQ BID (WT < 150 kg, CrCl > 30 mL/min) AND *Sequential Compression Device (SCD) Assessment and Plan Plan Community acquired pneumonia/pulmonary embolism The patient presented with a fever, tachypnea and tachycardia. CTA revealed: Inconclusive for pulmonary embolism, single slice shows what appears to be a small filling defect in right lower lobe pulmonary artery; Minimal parenchymal changes left base that could be early airspace disease. Has not had her home Xarelto in a week s/t insurance issues. Pt also with nasal congestion and cough. -treat with IV doxycycline. -sputum culture. -follow blood cultures. -resume Xarelto at 20 mg PO daily. -oxygen as needed. -incentive spirometry. Encourage ambulation. Elevated troponins/chronic systolic heart failure The pt has chronically elevated trops. She does have chest/rib pain, attributable to above. EKG without acute ischemia. No AICD at this time as EF has been improving. She may be a candidate for a LifeVest in the near future. -trend trops. -telemetry. -resume torsemide, Aldactone and Entresto. -consult cardiology if trops trend up. UTI UA indicative of infection. -continue doxycycline. -follow urine culture. Hypokalemia S/t diuretics. -replete PO and monitor. -resume Aldactone. -check mag level. PPx: Xarelto
[2018-09-17] MEDS: Spironolactone 25 MG Tablet PO SCH (12:14)
[2018-09-17] MEDS: Torsemide 20 MG Tablet PO SCH ×2 (12:14→21:03)
[2018-09-17 15:38] LABS: Troponin I 0.3 ng/mL (0.02-0.05)
[2018-09-17 15:50] LABS: CKMB Percent 0.3 % (0.0-4.0); Creatine Kinase MB 1.2 ng/mL (0.5-3.6)
[2018-09-17] MEDS: Acetaminophen 325 MG Tablet PO PRN (20:04)
[2018-09-18] MEDS: guaiFENesin/Codeine Syrup 200 MG/20 MG 10 ML UDC PO PRN ×2 (00:12→11:14)
[2018-09-18] MEDS: Insulin NovoLOG Aspart Correctional Sugar Inj SQ SCH ×3 (04:34→13:04)
[2018-09-18 05:53] LABS: Baso % (Auto) 1.2 % (0.0-2.0); Eos # (Auto) 0.1 th/mm3 (0.0-0.4); Eos % (Auto) 2.3 % (0.0-4.0); Hematocrit 39.8 % (35.0-46.0); Lymph # (Auto) 0.9 th/mm3 (1.0-4.8); Lymph % (Auto) 31.5 % (9.0-44.0); Mean Corpuscular HGB Conc 32.6 % (32.0-36.0); Mean Corpuscular Hemoglobin 26.6 pg (27.0-34.0); Mean Corpuscular Volume 81.7 fL (80.0-100.0); Mean Platelet Volume 9.4 fL (7.0-11.0); Mono # (Auto) 0.4 th/mm3 (0.0-0.9); Mono % (Auto) 14.8 % (0.0-8.0); Neut # (Auto) 1.4 th/mm3 (1.8-7.7); Neut % (Auto) 50.2 % (16.0-70.0); Platelet Count 193 th/mm3 (150-450); Red Blood Count 4.87 mil/mm3 (4.00-5.30); Red Cell Distribution Width 27.8 % (11.6-17.2); White Blood Count 2.8 th/mm3 (4.0-11.0)
[2018-09-18 06:23] LABS: Alanine Aminotransferase 30 U/L (10-53); Albumin 3.4 g/dL (3.4-5.0); Alkaline Phosphatase 85 U/L (45-117); Anion Gap 8 meq/L (5-15); Aspartate Aminotransferase 29 U/L (15-37); Blood Urea Nitrogen 11 mg/dL (7-18); Calcium 7.5 mg/dL (8.5-10.1); Carbon Dioxide 31.4 meq/L (21.0-32.0); Chloride 102 meq/L (98-107); Glomerular Filtration Rate 69 mL/min (>89); Glucose,Random 202 mg/dL (74-106); Magnesium 1.5 mg/dL (1.5-2.5); Sodium 141 meq/L (136-145)
[2018-09-18 06:39] LABS: Potassium 2.9 meq/L (3.5-5.1)
[2018-09-18] MEDS ORDERED: Potassium Chloride 25 MEQ Effervescent Tablet PO ONE (06:57)
[2018-09-18 08:13] LABS: Ovalocytes 1+
[2018-09-18 08:14] LABS: Platelet Estimate Normal (Normal)
[2018-09-18] MEDS: Rivaroxaban 20 MG Tablet PO SCH (09:08)
[2018-09-18] MEDS: Carvedilol 12.5 MG Tablet PO SCH (09:08)
[2018-09-18] MEDS: Torsemide 20 MG Tablet PO SCH (09:08)
[2018-09-18] MEDS: Spironolactone 25 MG Tablet PO SCH (09:08)
[2018-09-18] MEDS: Folic Acid 1 MG Tablet PO SCH (09:09)
[2018-09-18] MEDS: Senna/Docusate Sodium 8.6/50 MG Tablet PO SCH (09:10)
[2018-09-18 09:15] VITALS: RESP 18
--- NOTE | 2018-09-18 12:19 | ECG ---
Date Performed: 09/17/2018 Time Performed: 12:32:52 PTAGE: 38 years EKG: Sinus rhythm Anterior T wave changes are borderline abnormal Borderline ECG Since the PREVIOUS TRACING , no significant change noted PREVIOUS TRACIN09/17/2018 07.42.54 DOCTOR: Alfred Bhatti Interpretating Date/Time 09/18/2018 12:13:41
[2018-09-18] MEDS: Acetaminophen 325 MG Tablet PO PRN (13:03)
--- NOTE | 2018-09-18 14:49 | P.DS ---
DS: Providers Date of admission: 09/17/18 05:37 Primary care physician: UNKNOWN Brief History from admission: The patient is a 38-year-old female with a past medical history significant for systolic heart failure who is presenting to the hospital with cold symptoms and chest discomfort. The patient said that she developed cold symptoms about 3 days ago. She started to have nasal congestion and was coughing frequently. She did endorse yellow mucus production. She has not noticed any fevers at home. She does feel like she has associated shortness of breath. She also developed left-sided pain along the ribs beneath her left breast. She says the pain is constant at a 5 out of 10 in severity. She said the pain gets a lot worse when she coughs. She denies any prior history of pneumonia. She said she did get her flu shot this year. She says that she is on Xarelto but ran out 1 week ago because she was unable to secure another prescription. She denies any lower extremity swelling. She does endorse a feeling of tightness in her left lower extremity at times. She says her diuretics have been adjusted recently. She says she was hospitalized for a day or 2 in June for anemia but now she is on iron infusions. She also stated that she has had an EGD and colonoscopy and her division operations specialist plans on doing an MRI in the near future. She is hopeful to go home by tomorrow. Discussed with nursing. DS: Summary Mrs. Anthony is a 38-year-old female with a past history of cardiomyopathy. She was admitted secondary to chest pain. Cardiac evaluation shows no evidence of an upward trend in her troponin. She has baseline elevated troponins. Evidence for pneumonia is seen. Pneumonia could cause an elevation in troponins. No further chest pain remains. A CTA was performed and showed a mild defect at the right lower lobe. This patient has history of pulmonary emboli in the left and right lower lobes, at this point changes in her chronic baseline anticoagulation is not recommended. Patient's had significant improvement in her respiratory status and resolution of pain. She had a transient decrease in her potassium level but this has corrected with supplementation. She was septic at time of admit but is no longer septic. She is medically stable and cleared for discharge home today on antibiotics and to resume other prior baseline treatments. Time Spent with Patient Total time spent providing and/or coordinating discharge services: Results Labs on day of discharge: Labs from last 24 hours 09/18/18 09/18/18 09/18/18 14:02 12:29 08:57 WBC RBC Hgb Hct MCV MCH MCHC RDW Plt Count MPV Prelim Diff (Auto) Neut % (Auto) Lymph % (Auto) Hutchinson % (Auto) Eos % (Auto) Baso % (Auto) Neut # (Auto) Lymph # (Auto) Hutchinson # (Auto) Eos # (Auto) Baso # (Auto) WBC Differential Diff Scan Differential Comment Platelet Estimate Platelet Morphology Ovalocytes Sodium Potassium 3.7 D Chloride Carbon Dioxide Anion Gap BUN Creatinine Estimated GFR POC Glucose 214 H 209 H Random Glucose Calcium Magnesium Total Bilirubin AST ALT Alkaline Phosphatase Total Creatine Kinase CK-MB (CK-2) CK-MB (CK-2) % Troponin I Total Protein Albumin 09/18/18 09/18/18 09/18/18 05:04 05:04 03:45 WBC 2.8 L RBC 4.87 Hgb 13.0 Hct 39.8 MCV 81.7 D MCH 26.6 L MCHC 32.6 RDW 27.8 H Plt Count 193 MPV 9.4 Prelim Diff (Auto) Slide review pending Neut % (Auto) 50.2 Lymph % (Auto) 31.5 Hutchinson % (Auto) 14.8 H Eos % (Auto) 2.3 Baso % (Auto) 1.2 Neut # (Auto) 1.4 L Lymph # (Auto) 0.9 L Hutchinson # (Auto) 0.4 Eos # (Auto) 0.1 Baso # (Auto) 0.0 WBC Differential . Diff Scan Auto diff confirmed Differential Comment . Platelet Estimate Normal Platelet Morphology Enlarged H Ovalocytes 1+ H Sodium 141 Potassium 2.9 L* Chloride 102 Carbon Dioxide 31.4 Anion Gap 8 BUN 11 Creatinine 1.07 H Estimated GFR 69 L POC Glucose 190 H Random Glucose 202 H Calcium 7.5 L Magnesium 1.5 Total Bilirubin 0.2 AST 29 ALT 30 Alkaline Phosphatase 85 Total Creatine Kinase CK-MB (CK-2) CK-MB (CK-2) % Troponin I Total Protein 7.0 D Albumin 3.4 09/18/18 09/17/18 09/17/18 00:15 20:25 20:25 WBC RBC Hgb Hct MCV MCH MCHC RDW Plt Count MPV Prelim Diff (Auto) Neut % (Auto) Lymph % (Auto) Hutchinson % (Auto) Eos % (Auto) Baso % (Auto) Neut # (Auto) Lymph # (Auto) Hutchinson # (Auto) Eos # (Auto) Baso # (Auto) WBC Differential Diff Scan Differential Comment Platelet Estimate Platelet Morphology Ovalocytes Sodium Potassium Chloride Carbon Dioxide Anion Gap BUN Creatinine Estimated GFR POC Glucose 142 H Random Glucose Calcium Magnesium Total Bilirubin AST ALT Alkaline Phosphatase Total Creatine Kinase CK-MB (CK-2) CK-MB (CK-2) % Troponin I 0.28 H 0.30 H Total Protein Albumin 09/17/18 09/17/18 17:01 13:17 WBC RBC Hgb Hct MCV MCH MCHC RDW Plt Count MPV Prelim Diff (Auto) Neut % (Auto) Lymph % (Auto) Hutchinson % (Auto) Eos % (Auto) Baso % (Auto) Neut # (Auto) Lymph # (Auto) Hutchinson # (Auto) Eos # (Auto) Baso # (Auto) WBC Differential Diff Scan Differential Comment Platelet Estimate Platelet Morphology Ovalocytes Sodium Potassium Chloride Carbon Dioxide Anion Gap BUN Creatinine Estimated GFR POC Glucose 225 H Random Glucose Calcium Magnesium Total Bilirubin AST ALT Alkaline Phosphatase Total Creatine Kinase 476 H CK-MB (CK-2) 1.2 CK-MB (CK-2) % 0.3 Troponin I 0.30 H Total Protein Albumin Preliminary micro results at discharge 09/17/18 17:00 Sputum Culture - Preliminary Sputum - Expectorated Sputum Heavy growth normal respiratory jalen at 24 hours Impressions ITS Impressions Chest CTA 09/17/18 00:00 CONCLUSION: 1. Inconclusive for pulmonary embolism, single slice shows what appears to be a small filling defect in right lower lobe pulmonary artery. 2. Minimal parenchymal changes left base that could be early airspace disease. Discharge Plan Discharge Disposition Patient Disposition: Discharge Home Discharge Condition Condition: Stable Discharge Order Discharge Orders: Discharge Order (Routine); Ordered 09/18/18 Ordered By: Julio Wang Discharge Details Anticipated Discharge Date: 09/18/18 Physicians Team Primary Care Provider: UNKNOWN, Attending Provider: Julio Wang Rxs /Orders / Referrals /Forms Prescriptions: No Action carvedilol 25 mg Tablet 37.5 mg PO BID RF: 0 torsemide 20 mg Tablet 40 mg PO BID RF: 0 aspirin 81 mg Tablet,Chewable 81 mg PO DAILY RF: 0 rivaroxaban [Xarelto] 20 mg Tablet 20 mg PO DAILY RF: 0 spironolactone 25 mg Tablet 25 mg PO DAILY RF: 0 folic acid 1 mg Tablet 1 mg PO DAILY RF: 0 liraglutide [Victoza 2-Mykel] 0.6 mg/0.1 mL (18 mg/3 mL) Pen Injector 0.6 mg SUBCUT DAILY RF: 0 sacubitril-valsartan [Entresto] 49-51 mg Tablet 1 tab PO BID RF: 0 torsemide 20 mg Tablet 40 mg PO DAILY RF: 0 magnesium oxide 400 mg magnesium Tablet 400 mg PO DAILY NEB RF: 0 Referrals: UNKNOWN, [Primary Care Provider] - See Instructions Discharge Interventions Interventions: Discharge Planning - Case Management Last Done: 09/18/18 09:59 Status ED Status: Admitted Patient
[2018-09-18 15:27] VITALS: BP 118/60; TEMP 97.8; O2SAT 97
[2018-09-18 16:17] VITALS: PULSE 78
== END 2018-09-18 17:37 | disposition home or self-care (01) | DRG 871 ==
LOC: PHEDDLT 20:42 → HCIS 09-17 05:37
PROVIDERS: ADMIT Hospitalist; ATTEND Hospitalist
CPT/HCPCS: 71010; 71045; 71275; 80053; 81001; 82550; 82552; 82948; 82962; 83520; 83605; 83690; 83735; 83880; 84132; 84484; 85025; 85379; 87040; 87070; 87086; 87205; 87275; 87276; 87804; 90761; 90765; 93005; 94150; 96361; 96365; 99285; J0696; J1815; J2543; J3480; J7030; Q9967